=== PATIENT | female | born 1965 | race Caucasian/White ===

== ENCOUNTER 2022-01-12 19:20 | Emergency (ER) | payer OTHER, SELFPAY ==
--- NOTE | ~2022-01-12 | CT_ITS ---
EXAMINATION: CT head/brain wo con CLINICAL INFORMATION: Reason for Exam acute AMS etiology???r/o cva COMPARISON: CT head without contrast 04/12/2011 TECHNIQUE: Contiguous axial imaging was performed from the skull base to vertex without intravenous contrast. Sagittal and coronal reformatted images were obtained. This CT examination was performed using dose optimization techniques as appropriate, variously including the following: * Automated exposure control * Adjustment of mA and/or kV according to patient size (this includes techniques or standardized protocols for targeted exams where dose is matched to indication/reason for exam; i.e. extremities or head) Use of iterative reconstruction technique DLP: 702 mGy-cm FINDINGS: No acute osseous or soft tissue abnormality. Mastoid air cells are clear. Mild scattered paranasal sinus mucosal thickening There is no evidence of acute intracranial hemorrhage or territorial infarction. No abnormal mass effect or midline shift is seen. Loyd to white matter differentiation is well preserved. No extra-axial fluid collections are identified. No hydrocephalus. No significant volume loss. There is no abnormal attenuation within the brain parenchyma. CT/CT head/brain wo con IMPRESSION: No acute intracranial abnormality including hemorrhage, mass effect, hydrocephalus, or acute territorial edematous infarction.
--- NOTE | 2022-01-12 19:30 | ECG_ITS ---
Test Reason : ams Blood Pressure : / mmHG Vent. Rate : 112 BPM Atrial Rate : 112 BPM P-R Int : 146 ms QRS Dur : 088 ms QT Int : 370 ms P-R-T Axes : 046 -23 061 degrees QTc Int : 505 ms Sinus tachycardia Nonspecific ST abnormality Abnormal ECG No previous ECGs available Referred By: Prashant Levin Electronically Signed By:Eh Watts
--- NOTE | 2022-01-12 19:30 | ED.AMS ---
HPI - Altered Mental Status General Chief Complaint: Altered Mental Status Stated Complaint: altered mental Time Seen by Provider: 01/12/22 19:30 Source: EMS Mode of arrival: EMS History of Present Illness HPI narrative: Patient with psychiatric issues details not available brought by EMS for acute altered mental status. Apparently patient was fine earlier room at left and came back and noticed patient is acting vague not talking staring no seizure activity noticed no vomiting able to move all 4 extremities Related Data Allergies Allergy/AdvReac Type Severity Reaction Status Date / Time celecoxib [From CELEBREX] Allergy Unknown GASTRITIS Unverified 03/13/20 15:54 ibuprofen [IBUPROFEN] Allergy Unknown GASTRITIS Unverified 03/13/20 15:54 lactose [LACTOSE] Allergy Unknown STOMACH Unverified 03/13/20 15:54 UPSET latex [LATEX] Allergy Unknown RASH Unverified 03/13/20 15:54 metaxalone [From SKELAXIN] Allergy Unknown GASTRITIS Unverified 03/13/20 15:54 NSAIDS (Non-Steroidal Allergy Unknown GASTRITIS Unverified 03/13/20 15:54 Anti-Inflamma [NSAIDS] rofecoxib [From VIOXX] Allergy Unknown GASTRITIS Unverified 03/13/20 15:54 Latex Allergy Unknown Uncoded 07/17/19 00:00 Motrin Allergy Unknown Uncoded 07/17/19 00:00 Nsaids Allergy Unknown Uncoded 07/17/19 00:00 Review of Systems Review of Systems: Yes Unobtainable due to mental status PMFSH Social History Social History Alcohol intake: never Patient Tobacco Use Status: Former Tobacco user Smoked in Last 30 Days: No Use of substances other than those prescribed or required for medical reasons: Yes Substance Use Type: Marijuana Advance Directives: No Advance Directives Information Provided: No Physical Exam ED Vital Signs: Vital Signs - 24 hr 01/12/22 19:44 01/12/22 19:44 01/12/22 20:00 Temperature 97.5 F 97.5 F 97.4 F Pulse Rate 102 H 122 H 116 H Respiratory Rate 26 H 22 H 16 Blood Pressure 155/112 H 155/102 H 146/103 H Pulse Oximetry 96 98 97 Oxygen Delivery Method Room Air Room Air Room Air 01/12/22 21:55 01/12/22 23:04 Temperature 97.0 F Pulse Rate 113 H 124 H Respiratory Rate 16 16 Blood Pressure 176/95 H 175/113 H Pulse Oximetry 98 97 Oxygen Delivery Method Room Air Room Air BMI result Body Mass Index 25.0 Appearance: Alert. And awake staring No acute distress. Eyes: PERRLA, No Nystagmus ENT: Pharynx normal. Oral Mucosa moist Neck: Normal inspection. Neck supple. CVS: Normal heart rate and rhythm. Pulses normal. Respiratory: No respiratory distress. Equal air entry bilateral, no wheezing/rales/rhonchi Abdomen: Soft and nontender. Bowel sounds are present, no mass palpable, no CVA tenderness Skin: Skin warm and dry. Normal skin color. Normal skin turgor. Extremities: No lower extremity edema. No calf tenderness Neuro: Alert and awake not talking staring able to understand tried to make fist when I asked for, tremors in bilateral upper extremities + tone normal MDM - Altered Mental Status MDM Narrative Medical decision making narrative: Patient confused and very unkept condition details not available unable to contact the family patient seems to be very depressed her brother was recently diagnosed with terminal cancer and he refusing to take any treatment. CT scan of the head neg, labs stable Will consult care team Lab Data Attestation: I reviewed the patient's lab results. Result diagrams: 01/12/22 19:40 01/12/22 19:40 Labs: Lab Results 01/12/22 01/12/22 01/12/22 Range/Units 19:37 19:40 19:40 WBC 8.1 (4.8-10.8) X10*3/uL RBC 4.60 (4.20-5.50) X10*6/uL Hgb 13.4 (12.0-16.0) g/dl Hct 38.6 (37.0-47.0) % MCV 83.9 (80.0-98.0) fL MCH 29.1 (27.0-33.0) pg MCHC 34.7 (31.0-35.0) g/dl RDW 12.5 (11.0-16.0) % Plt Count 323 (160-400) X10*3/uL MPV 9.1 L (9.4-12.3) fL Immature Gran % (Auto) 0.4 (0.0-0.4) % Neut % (Auto) 75.0 H (45-73) % Lymph % (Auto) 17.6 L (20-40) % [place] % (Auto) 6.4 (2-11) % Eos % (Auto) 0.2 (0-4) % Baso % (Auto) 0.4 (0-2) % Lymph # (Auto) 1.4 (1.2-4.9) X10*3/uL [place] # (Auto) 0.5 (0.1-1.2) X10*3/uL Eos # (Auto) 0.0 (0.0-0.4) X10*3/uL Baso # (Auto) 0.0 (0.0-0.2) X10*3/uL Abs Immat Gran (auto) 0.03 (0.00-0.03) X10*3/uL Absolute Neuts (auto) 6.1 (2.0-8.3) x10*3/uL Absolute Nucleated RBC 0.000 (0.0-0.012) X10*3/uL Nucleated RBC % (auto) 0.0 (0.0-0.2) /100WBC PT 13.3 H (10.0-13.1) SEC INR 1.2 H (0.9-1.1) Sodium (135-145) mmol/L Potassium (3.3-5.1) mmol/L Chloride (96-108) mmol/L Carbon Dioxide (22-29) mmol/L Anion Gap (12-20) BUN (9-16) mg/dL Creatinine (0.5-1.4) mg/dL Estim Creat Clear Calc Estimated GFR Random Glucose (60-115) mg/dL Calcium (8.4-10.2) mg/dL Total Bilirubin (0.0-1.0) mg/dL AST (5-31) U/L ALT (0-31) U/L Alkaline Phosphatase (39-117) U/L Total Protein (6.5-8.0) g/dL Albumin (3.5-5.0) g/dL Urine Opiates Screen (Not Detect) Urine Fentanyl Screen (Not Detect) Ur Barbiturates Screen (Not Detect) Ur Phencyclidine Scrn (Not Detect) Ur Amphetamines Screen (Not Detect) U Benzodiazepines Scrn (Not Detect) Urine Cocaine Screen (Not Detect) U Marijuana (THC) Screen (Not Detect) COVID-19 (XAVIER) Negative (Negative) COVID-19 Clin Com See Note 01/12/22 01/12/22 Range/Units 19:40 21:57 WBC (4.8-10.8) X10*3/uL RBC (4.20-5.50) X10*6/uL Hgb (12.0-16.0) g/dl Hct (37.0-47.0) % MCV (80.0-98.0) fL MCH (27.0-33.0) pg MCHC (31.0-35.0) g/dl RDW (11.0-16.0) % Plt Count (160-400) X10*3/uL MPV (9.4-12.3) fL Immature Gran % (Auto) (0.0-0.4) % Neut % (Auto) (45-73) % Lymph % (Auto) (20-40) % [place] % (Auto) (2-11) % Eos % (Auto) (0-4) % Baso % (Auto) (0-2) % Lymph # (Auto) (1.2-4.9) X10*3/uL [place] # (Auto) (0.1-1.2) X10*3/uL Eos # (Auto) (0.0-0.4) X10*3/uL Baso # (Auto) (0.0-0.2) X10*3/uL Abs Immat Gran (auto) (0.00-0.03) X10*3/uL Absolute Neuts (auto) (2.0-8.3) x10*3/uL Absolute Nucleated RBC (0.0-0.012) X10*3/uL Nucleated RBC % (auto) (0.0-0.2) /100WBC PT (10.0-13.1) SEC INR (0.9-1.1) Sodium 138 (135-145) mmol/L Potassium 3.2 L (3.3-5.1) mmol/L Chloride 105 (96-108) mmol/L Carbon Dioxide 25 (22-29) mmol/L Anion Gap 11 L (12-20) BUN 18 H (9-16) mg/dL Creatinine 0.81 (0.5-1.4) mg/dL Estim Creat Clear Calc 68.1 Estimated GFR > 60 Random Glucose 123 H (60-115) mg/dL Calcium 8.9 (8.4-10.2) mg/dL Total Bilirubin 0.6 (0.0-1.0) mg/dL AST 15 (5-31) U/L ALT 13 (0-31) U/L Alkaline Phosphatase 61 (39-117) U/L Total Protein 6.8 (6.5-8.0) g/dL Albumin 4.3 (3.5-5.0) g/dL Urine Opiates Screen Not Detected (Not Detect) Urine Fentanyl Screen Not Detected (Not Detect) Ur Barbiturates Screen Not Detected (Not Detect) Ur Phencyclidine Scrn Not Detected (Not Detect) Ur Amphetamines Screen Not Detected (Not Detect) U Benzodiazepines Scrn Not Detected (Not Detect) Urine Cocaine Screen Not Detected (Not Detect) U Marijuana (THC) Screen POSITIVE H (Not Detect) COVID-19 (XAVIER) (Negative) COVID-19 Clin Com Discharge Plan Discharge Clinical Impression: Altered mental status, Depression Patient Disposition: Still a Patient
[2022-01-12 19:44] VITALS: BP 155/102; BP 155/112; BP 162/108; PULSE 102; PULSE 122; PULSE 130; RESP 22; RESP 26; TEMP 36.4; O2SAT 96; O2SAT 98; BMI 25.0
[2022-01-12 19:46] LABS: MANUAL DIFF FLAG NO
[2022-01-12 19:50] LABS: Basophils Percent Auto 0.4 % (0-2); Eosinophils Percent Auto 0.2 % (0-4); Hematocrit 38.6 % (37.0-47.0); Hemoglobin 13.4 g/dl (12.0-16.0); Imm Gran Abs Auto 0.03 X10*3/uL (0.00-0.03); Imm Gran Pct Auto 0.4 % (0.0-0.4); Lymphocytes Absolute Auto 1.4 X10*3/uL (1.2-4.9); Lymphocytes Percent Auto 17.6 % (20-40); Mean Corpuscular HGB Conc 34.7 g/dl (31.0-35.0); Mean Corpuscular Hemoglobin 29.1 pg (27.0-33.0); Mean Corpuscular Volume 83.9 fL (80.0-98.0); Mean Platelet Volume 9.1 fL (9.4-12.3); Monocytes Absolute Auto 0.5 X10*3/uL (0.1-1.2); Monocytes Percent Auto 6.4 % (2-11); Neutrophils Absolute Auto 6.1 x10*3/uL (2.0-8.3); Platelet Count 323 X10*3/uL (160-400); Red Cell Distribution Width 12.5 % (11.0-16.0); White Blood Count 8.1 X10*3/uL (4.8-10.8)
--- NOTE | 2022-01-12 19:51 | PC.NURSE ---
ED triage completed with EMS, IV access inserted, labs drawn and COVID swab sent. Pt. at CT scan at this time
[2022-01-12 19:53] LABS: INTERNATIONAL NORM RATIO 1.2 (0.9-1.1); Prothrombin Time 13.3 SEC (10.0-13.1)
[2022-01-12 20:00] VITALS: BP 146/103; PULSE 116; RESP 16; TEMP 36.3; O2SAT 97
[2022-01-12 20:02] LABS: COVID-19 Test Negative (Negative); IDNOW Serial# 16C4AD1C
[2022-01-12 20:03] LABS: Alanine Aminotransferase 13 U/L (0-31); Albumin Level 4.3 g/dL (3.5-5.0); Alkaline Phosphatase 61 U/L (39-117); Anion Gap 11 (12-20); Aspartate Amino Transferase 15 U/L (5-31); Bilirubin Total 0.6 mg/dL (0.0-1.0); Blood Urea Nitrogen 18 mg/dL (9-16); Calcium 8.9 mg/dL (8.4-10.2); Carbon Dioxide 25 mmol/L (22-29); Chloride 105 mmol/L (96-108); Creatinine Clr Calc Pharmacy 68.1; Estimated Glomerular Filt Rate > 60; Glucose Random 123 mg/dL (60-115); Potassium 3.2 mmol/L (3.3-5.1); Sodium 138 mmol/L (135-145); Total Protein 6.8 g/dL (6.5-8.0)
--- NOTE | 2022-01-12 20:18 | PC.NURSE ---
PATIENT GOT CHANGE INTO HOSPITAL ATTIRE BY THIS PCT .
[2022-01-12 21:55] VITALS: BP 176/95; PULSE 113; RESP 16; TEMP 36.1; O2SAT 98
[2022-01-12 22:17] LABS: Amphetamine Screen Urine Not Detected (Not Detect); Barbiturates, Urine Not Detected (Not Detect); Benzodiazepines Screen Urine Not Detected (Not Detect); Cannabinoid Screen Urine POSITIVE (Not Detect); Cocaine Screen Urine Not Detected (Not Detect); Fentanyl, urine Not Detected (Not Detect); Opiate Screen Urine Not Detected (Not Detect); Phencyclidine Screen Urine Not Detected (Not Detect)
[2022-01-12 23:04] VITALS: BP 175/113; PULSE 124; RESP 16; O2SAT 97
[2022-01-12] MEDS: Metoprolol Tartrate 5 MG/5 ML VIAL IVPUSH (23:14)
[2022-01-12] MEDS: 0.9 % Sodium Chloride 1,000 ML 999 ML IV (23:14)
--- NOTE | 2022-01-12 23:20 | PC.NURSE ---
pt placed on bed kelly multiple times. unable to void. Heart rate in the 130s-140s, metoprolol given IV push per Dr. Rivera's orders. pt able to respond to verbal commands at this time.
[2022-01-13] VITALS (8 sets, daily range): BP systolic 119–175; BP diastolic 75–117; PULSE 74–100; RESP 12–20; TEMP 36.3–36.7; O2SAT 97–98
--- NOTE | 2022-01-13 00:30 | PC.NURSE ---
pt ambulated to bathroom with 1-2 assist. upon getting back into bed pt stated she needed to void again. Unsteady gait. Disheveled and unkept appearance. A&O x1.
--- NOTE | 2022-01-13 01:01 | PC.NURSE ---
Called Marco Mcleod (fiance) [phone] left message at 0100am. per patient it's her fiance. Patient disheveled and smells like sweat. Will continue with plan of care.
[2022-01-13] MEDS: Losartan Potassium 50 MG TABLET PO (03:36)
[2022-01-13] MEDS: Labetalol HCL 100 MG TABLET PO (05:13)
--- NOTE | 2022-01-13 05:24 | PC.NURSE ---
pt is alert to person and time. Was confused to regarding location, thought was in [facility]. Elevated blood pressure medicated per Mar. Pt reports she does take medications and there no records of medicates listed.
--- NOTE | 2022-01-13 05:48 | PC.NURSE ---
Harsha her partner [phone]
--- NOTE | 2022-01-13 07:11 | PC.NURSE ---
Patient reports feeling somewhat improved. Patient is alert and oriented to person/place but is not oriented to year. Reports some discomfort after urinating and reports frequently feeling the urge to urinate. UA order placed. Awaiting fresh specimen. Patient denies pain, respirations regular and even. Skin PWD. Hypertensive, made aware. Diet order placed and awaiting breakfast tray. Will continue to monitor.
[2022-01-13 07:52] LABS: Appearance Urine CLEAR; Color Urine STRAW; Glucose Urine UA NEG (NEG); Leukocyte Esterase Urine NEG (NEG); Nitrite Urine NEG (NEG); UACC Culture Trigger NO; Urine Blood 2+ (NEG); Urine Ketones 5 MG/DL (NEG); Urine Protein NEG (NEG-TRACE)
[2022-01-13 08:04] LABS: Squamous Epithelial Cell Urine TRACE /LPF
[2022-01-13 08:05] LABS: WBC Urine 0 /HPF (0-4)
--- NOTE | 2022-01-13 08:32 | PC.NURSE ---
Patient up to the commode numerous times. Unsteady on feet and needs assistance to stand and pivot. Fiance at bedside now visiting. Patient alert and can report year at this time. Respirations remain regular and even. Skin PWD. No signs of distress. Will continue to monitor.
--- NOTE | 2022-01-13 09:10 | PHA.MEDREC ---
Pharmacy Consult ? Medication Reconciliation Pharmacy has completed the medication reconciliation.
[2022-01-13 09:20] LABS: Anion Gap 14 (12-20); Blood Urea Nitrogen 12 mg/dL (9-16); Calcium 9.6 mg/dL (8.4-10.2); Carbon Dioxide 25 mmol/L (22-29); Chloride 103 mmol/L (96-108); Estimated Glomerular Filt Rate > 60; Glucose Random 92 mg/dL (60-115); Potassium 3.4 mmol/L (3.3-5.1); Sodium 139 mmol/L (135-145)
--- NOTE | 2022-01-13 09:29 | MHC.CM.ED ---
Case management consult received overnight. Patient is waiting to be seen by Care Team. CM will eval if necessary. Continue to monitor for d/c needs.
--- NOTE | 2022-01-13 10:03 | PC.NURSE ---
Patient remains comfortable resting on stretcher. Respirations regular and even. Skin PWD. Remains unstable to ambulate without assistance to commode, 1 assist. Awaiting careteam consult. Will continue to monitor.
--- NOTE | 2022-01-13 13:32 | PC.NURSE ---
Patient reports she continues to improve. A+O x 4 at this time. Respirations remain regular and even. Skin PWD. Denies pain. Will continue to monitor.
--- NOTE | 2022-01-13 16:50 | MHC.CM.ED ---
CARE team is recommending RVC or partial hospitalization program for patient. Pt lives in efficiency apartment with her disabled daughter, who requires 24/7 care and is wheelchair bound. Daughter has a progressive disease per pt. Cannot tell CM much, except that daughter has spots on her white matter that result in paraplegia. Daughter is now at [facility] and pt states she cannot take her home and wants her daughter to be placed. CM explained that [facility] will be contacting her regarding her daughter. Pt has some help from boyfriend, Harsha ([phone]), who states he can help patient at home over next several days. Pt wants to go home. Has had help to ambulate to BR documented in NN. Spoke to nurse about patients ability to ambulate and needing assessment prior to d/c. CM spoke with Yadira EDMONDS, who assessed patient and had her ambulate. Pt was very unsteady on her feet, leaning towards the left as she ambulated. COLLAR WORKER and CM spoke with patient. D/C cancelled. Pt will have CT of head and PT consult for possible STR. Pt is very unkempt, with a nest of matted hair. Pt admits to having difficulty caring for herself, as she has been caring for her daughter. Pt has [facility] insurance and states she has no services/DME. Pt states she does not have a provider. CM explained that she should have a care administrative tech at [facility] who can help her. CM will need to call [facility] in the morning, as they are closed now. CM will follow for d/c needs.
--- NOTE | 2022-01-13 17:00 | MHC.CARE ---
Pt is a 56 y/o, , Niuean speaking, female who is previously unknown to the CARE Team.? Yesterday, pt arrived via EMS after an unintentional overdose on Benadryl.? Pt?s Boyfriend reported that he brought dinner to pt and her daughter and normally hears from her after dinner.? Yesterday he did not.? Thinking that to be odd, he called, and later drove to her home when he did not hear from her.? He found her unresponsive and called EMS.? Pt has been medically cleared and is being seen by the CARE Team on a consult request.? 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 She does not know the name of the disease, claiming that the disease has no name.? She does state that the condition is caused by ?White spots on the brain or spots on the white brain matter.? She reports that caring for her daughter is an around the clock job.? She reports that for the past month she has only gotten 2-4 hours of sleep a night and is ?Exhausted but cannot sleep.?? She stated that prior to this past month, she was using ZQUil to sleep but that soon became ineffective.? She stated that in an effort to sleep, she took ?A lot? of Benadryl.? She could not give an exact amount but it was not a whole bottle.? She did call the amount ?A handful?. She is alert and oriented x4 and is assessed for risk in her room in the main ED.? She is disheveled and appears older than her stated age.? Physically, she appears frail though she reports that she has been eating well.? She is engaged and help seeking but cannot articulate what help she does need.? She reports her mood as depressed and anxious, she demonstrates congruent affect.? Her speech and eye contact are unremarkable.? She denies AVH, SI, HI, and .? She stated that she has a remote hx of SI.? In 2008 her had a stroke and was left nonverbal and is now in a half-way.? During and after that event, pt experienced increasing depression, anxiety, and suicidal ideation.? She reports no attempts or intent.? Pt was homeless with her daughter approximately 7 years ago and her boyfriend assisted them in securing an apartment.? She is presently living in an efficiency apartment with her daughter.? Pt does not have any services in place presently.? She does not appear to be at risk and does not meet criteria for inpatient level of care. CARE Team will refer pt to [facility] for a therapist with a note that she will also require a prescriber as pt has been off her psychiatric medications for approximately 2 years.? A [place] [facility] [place] CASE Management will speak with pt regarding resources that may be available to her daughter and how to begin the process of researching them. This has been discussed with and agreed upon by Care Device Repair Technician Marty RICHARDS and ED provider Parvez Nicholas
--- NOTE | 2022-01-13 18:00 | PC.NURSE ---
patient a&ox2, no c/o pain/discomfort, per case mgmt pt will continue to stay for pt eval, call kaye within reach, will continue to monitor.
--- NOTE | 2022-01-13 21:00 | PC.NURSE ---
pt sleeping, wakes to verbal stimulus, a&ox2, no c/o pain or discomfort, call kaye within reach, will continue to monitor
[2022-01-14] MEDS: Acetaminophen 325 MG TABLET 650 MG PO (01:08)
[2022-01-14 01:33] VITALS: BP 156/94; PULSE 71; RESP 16; TEMP 37.2; O2SAT 97
[2022-01-14 06:33] VITALS: BP 128/82; PULSE 77; RESP 14; TEMP 36.8; O2SAT 97
[2022-01-14 07:01] VITALS: BP 140/91; PULSE 72; RESP 16; TEMP 36.8; O2SAT 98
[2022-01-14 07:27] VITALS: BP 140/91; PULSE 72; O2SAT 98
[2022-01-14] MEDS: Multivitamin TABLET 1 TAB PO (09:15)
--- NOTE | 2022-01-14 09:16 | PC.NURSE ---
pt alert and oriented, skin pwd, respirations even and unlabored. pt ate her breakfast and provided with a tea instead of her coffee. pt denies pain. pt states that physical therapy already saw her this morning and was told she passed with physical therapy. pt lives alone in [place].
--- NOTE | 2022-01-14 11:17 | MHC.CM.ED ---
Addendum entered by Kate Burns 01/14/22 13:04: [facility] is able to accept patient. Carmencita from [facility] aware. Original Note: Patient remains in ER. Physical therapy eval completed. Home therapy is recommended. Met with patient in regards to discharge planning. Patient feels she can safely go home with services. Sig other will be here at noon to transport patient home. Patient, Cami BURNHAM and Yadira EDMONDS aware. Continue to monitor for d/c needs.
[2022-01-14 11:32] VITALS: BP 139/85; PULSE 80; RESP 12; O2SAT 97
--- NOTE | 2022-01-16 15:46 | MHC.CARE ---
CARE team called for a second time to check in with Pt and provided phone support, message left on voice mail.
== END 2022-01-14 12:26 | disposition home or self-care (01) ==
PROVIDERS: Emergency Medicine; Physician Assistant Medical; Emergency Provider Internal Medicine; PCP Internal Medicine
DX: R41.82 Altered mental status, unspecified (principal); F32.A Depression, unspecified; R26.81 Unsteadiness on feet; I10 Essential (primary) hypertension; F12.90 Cannabis use, unspecified, uncomplicated; Z20.822 Contact with and (suspected) exposure to COVID-19; Z72.89 Other problems related to lifestyle; Z63.79 Other stressful life events affecting family and household; Z87.891 Personal history of nicotine dependence
CPT/HCPCS: 36415; 70450; 80048; 80053; 80307; 81001; 85025; 85610; 87635; 93005; 96361; 96374; 97161; 99285

== ENCOUNTER 2022-03-17 09:23 | Outpatient (REF) | payer OTHER, SELFPAY ==
[2022-03-17 11:21] LABS: Appearance Urine Clear; Color Urine Yellow; Glucose Urine UA Negative (Negative); Leukocyte Esterase Urine Moderate (2+) (Negative); Nitrite Urine Negative (Negative); PH 5.5 (5.0-9.0); Specific Gravity - Urine 1.015 (1.005-1.025); UMIC TRIGGER UA YES; Urine Blood Negative (Negative); Urine Ketones Negative (Negative); Urine Protein Negative (Neg-Trace)
[2022-03-17 11:25] LABS: Hematocrit 41.6 % (37.0-47.0); Hemoglobin 13.6 g/dl (12.0-16.0); Mean Corpuscular HGB Conc 32.7 g/dl (31.0-35.0); Mean Corpuscular Hemoglobin 28.5 pg (27.0-33.0); Mean Corpuscular Volume 87.2 fL (80.0-98.0); Mean Platelet Volume 9.7 fL (9.4-12.3); Platelet Count 337 X10*3/uL (160-400); Red Blood Count 4.77 X10*6/uL (4.20-5.50); Red Cell Distribution Width 13.2 % (11.0-16.0); White Blood Count 6.6 X10*3/uL (4.8-10.8)
[2022-03-17 11:45] LABS: Bacteria Urine None Seen (None Seen); Hyaline Casts Urine 0-2 /LPF (0-2); RBC Urine 0-2 /HPF (0-2)
[2022-03-17 12:05] LABS: Alanine Aminotransferase 28 U/L (0-31); Albumin Level 4.5 g/dL (3.5-5.0); Alkaline Phosphatase 65 U/L (39-117); Anion Gap 16 (12-20); Aspartate Amino Transferase 23 U/L (5-31); Bilirubin Total 0.6 mg/dL (0.0-1.0); Blood Urea Nitrogen 17 mg/dL (9-16); Calcium 9.7 mg/dL (8.4-10.2); Carbon Dioxide 26 mmol/L (22-29); Chloride 102 mmol/L (96-108); Cholesterol 305 mg/dL; Estimated Glomerular Filt Rate > 60; Glucose Fasting 94 mg/dL (60-99); HDL Cholesterol 50 mg/dL; LDL Cholesterol Calculated 225 mg/dl; Potassium 3.7 mmol/L (3.3-5.1); Sodium 140 mmol/L (135-145); Triglycerides 153 mg/dL
[2022-03-17 12:06] LABS: TSH reflex Free T4 2.31 uIU/mL (0.32-4.0)
== END 2022-03-17 09:24 | disposition home or self-care (01) ==
LOC: HO.HMGCLDS 09:23
PROVIDERS: PCP Hospitalist; Visit Provider Hospitalist
DX: Z00.00 Encounter for general adult medical examination without abnormal findings (principal)
CPT/HCPCS: 36415; 80053; 80061; 81001; 84443; 85027

== ENCOUNTER 2022-04-21 16:09 | Outpatient (REF) | payer OTHER, SELFPAY | END 2022-04-21 16:10 | disposition home or self-care (01) | LOC: HO.LAB 16:09 | PROVIDERS: Visit Provider Hospitalist | DX: N39.0 Urinary tract infection, site not specified (principal) | CPT/HCPCS: 87086 ==

== ENCOUNTER 2022-11-03 11:57 | Day surgery (SDC) | payer OTHER, SELFPAY ==
[2022-11-01 14:22] VITALS: BMI 24.2
--- NOTE | 2022-11-02 12:08 | HO.ANESPROP2 ---
Documented by User: Nabila Bauer NP 11/02/22 12:09 HPI - Anesthesia Eval Consult details Narrative: 57yo F for Colonoscopy PMFSH Active Problems Active Problems: All Active Problems (Updated 09/08/22 @ 14:57 by Di Marie NP) Anxiety and depression (Acute) Skin lesion of back (Acute) Sleep-wake 24 hour cycle disruption (Acute) Mid back pain, chronic (Acute) UTI (urinary tract infection) (Acute) Dysuria (Acute) Encounter for screening mammogram for malignant neoplasm of breast (Acute) Hypertension goal BP (blood pressure) < 130/80 (Acute) Insomnia (Acute) Due for screening (Acute) Mammogram not needed (Acute) Elevated BP without diagnosis of hypertension (Acute) Migraine (Acute) Cervical disc disease (Acute) Depression (Acute) Anxiety (Acute) Normal physical exam (Acute) Past Medical History Medical History Anxiety Cervical disc disease Depression Fibromyalgia Insomnia Migraine Sciatica Surgical History Surgical History No pertinent past surgical history Social History Social History Housing: Apartment Alcohol intake: never Patient Tobacco Use Status: Former Tobacco user e-Cigarette/Vaping Use: Never Used Use of substances other than those prescribed or required for medical reasons: No Substance Use Type: Marijuana Are you DNR?: No Advance Directives: No Advance Directives Information Provided: Yes Current occupational status: disabled Meds Allergies Allergy/AdvReac Type Severity Reaction Status Date / Time celecoxib [From CELEBREX] Allergy Unknown GASTRITIS Verified 09/08/22 14:44 ibuprofen [IBUPROFEN] Allergy Unknown GASTRITIS Verified 09/08/22 14:44 lactose [LACTOSE] Allergy Unknown STOMACH Verified 09/08/22 14:44 UPSET latex [LATEX] Allergy Unknown RASH Verified 09/08/22 14:44 metaxalone [From SKELAXIN] Allergy Unknown GASTRITIS Verified 09/08/22 14:44 NSAIDS (Non-Steroidal Allergy Unknown GASTRITIS Verified 09/08/22 14:44 Anti-Inflamma [NSAIDS] rofecoxib [From VIOXX] Allergy Unknown GASTRITIS Verified 09/08/22 14:44 Exam Exam Date and Time: November 02, 2022 1208 Height,Weight and Vital Signs: Height 5 ft Weight 56.245 kg Pertinent Lab Results Pertinent Lab Results: Laboratory Tests 03/17/22 03/17/22 09:29 09:29 WBC 6.6 Hgb 13.6 Hct 41.6 Plt Count 337 Sodium 140 Potassium 3.7 Chloride 102 Carbon Dioxide 26 BUN 17 H Creatinine 0.86 Assessment and Plan Assessment Anesthesia Assessment: Chart Reviewed Documented by User: Shellie Myers MD 11/03/22 13:52 [facility] Past Medical History Medical History Anxiety Cervical disc disease Depression Fibromyalgia Insomnia Migraine Sciatica Family History Family history of problems with anesthesia: No Surgical History Surgical History No pertinent past surgical history History of Problems with Anesthesia: No Social History Social History Housing: Apartment Alcohol intake: never Patient Tobacco Use Status: Former Tobacco user e-Cigarette/Vaping Use: Never Used Use of substances other than those prescribed or required for medical reasons: No Substance Use Type: Marijuana Are you DNR?: No Advance Directives: No Advance Directives Information Provided: Yes Current occupational status: disabled Meds Allergies Allergy/AdvReac Type Severity Reaction Status Date / Time celecoxib [From CELEBREX] Allergy Unknown GASTRITIS Verified 09/08/22 14:44 ibuprofen [IBUPROFEN] Allergy Unknown GASTRITIS Verified 09/08/22 14:44 lactose [LACTOSE] Allergy Unknown STOMACH Verified 09/08/22 14:44 UPSET latex [LATEX] Allergy Unknown RASH Verified 09/08/22 14:44 metaxalone [From SKELAXIN] Allergy Unknown GASTRITIS Verified 09/08/22 14:44 NSAIDS (Non-Steroidal Allergy Unknown GASTRITIS Verified 09/08/22 14:44 Anti-Inflamma [NSAIDS] rofecoxib [From VIOXX] Allergy Unknown GASTRITIS Verified 09/08/22 14:44 Exam Airway Mallampati Class: II TM Dist: >3cm Neck ROM: Full Heart: rrr Lungs: cta Assessment and Plan Assessment Anesthesia Assessment: Anesthesia Plan Discussed Final Anesthetic Review Family History of Problems with Anesthesia: No History of Problems with Anesthesia: No NPO: Yes ASA Class: II Final Preanesthetic Review: No Changes in Pt Med Stat, Meds/Allgs Chart Reviewed and Consent Obtained/Reviewed Patient Risk: Intermediate Procedure Risk: Intermediate Anesthetic Plan Anesthetic Plan: MAC: Disposition: Standard PACU
[2022-11-03 12:47] VITALS: BMI 24.0
[2022-11-03 12:51] VITALS: BP 119/79; PULSE 93; RESP 18; TEMP 37.3; O2SAT 97
[2022-11-03 13:06] VITALS: BP 119/75; PULSE 82; RESP 18; TEMP 36.7; O2SAT 97
[2022-11-03] MEDS: Lactated Ringers 1,000 ML 100 ML IVCONT (13:07)
--- NOTE | 2022-11-03 13:45 | P.HPSUR_ITS ---
Pre-Procedural Eval Section A Date of Service: 11/03/22 Section B Chief Complaint: Encounter for screening for malignant neoplasm Relevant Family History (Specify if Yes): No Relevant Social History: None Present Medications: see Short Stay Collaborative assessment Medical History: Significant History (Anxiety Cervical disc disease Depression Fibromyalgia Insomnia Migraine Sciatica) History of Previous Operations: No relevant previous surgery Allergies: Allergies Allergy/AdvReac Type Severity Reaction Status Date / Time celecoxib [From CELEBREX] Allergy Unknown GASTRITIS Verified 09/08/22 14:44 ibuprofen [IBUPROFEN] Allergy Unknown GASTRITIS Verified 09/08/22 14:44 lactose [LACTOSE] Allergy Unknown STOMACH Verified 09/08/22 14:44 UPSET latex [LATEX] Allergy Unknown RASH Verified 09/08/22 14:44 metaxalone [From SKELAXIN] Allergy Unknown GASTRITIS Verified 09/08/22 14:44 NSAIDS (Non-Steroidal Allergy Unknown GASTRITIS Verified 09/08/22 14:44 Anti-Inflamma [NSAIDS] rofecoxib [From VIOXX] Allergy Unknown GASTRITIS Verified 09/08/22 14:44 Review of Systems Sugical H&P ROS: Negative: Constitution, Cardiovascular, Respiratory, Neurological, Psychiatric, Hem-Onc, Allergic/Immunologic, Gastrointestinal, Genitourinary, Musculoskeletal, Integumentary, Endocrine and Eyes/Ears/Nose/Throat Exam Surgical H&P Exam: Normal: HEENT, Normal: Heart, Normal: Lungs, Normal: Extremit ies, Normal: Abdomen, Normal: Skin and Normal: Neurological Plan Diagnosis/Plan: Unchanged I have reviewed the history and physical and performed a pertinent physical examination on my patient. No changes have occurred unless specified. Time Spent With Patient Time: Total time managing care of this patient today ____ minutes.
--- NOTE | 2022-11-03 13:46 | W.PM.OPN ---
Operative Note Operative Note Date of Service: 11/03/22 Narrative: Operative Information Procedure Description: Colonoscopy Indication: screening Anesthesia: MAC COLONOSCOPY Instrument: Olympus variable stiffness pediatric scope 190L Colonoscopy Monitoring: Vital signs and clinical assessment, continuous EKG monitoring, Pulse oximetry, Carbon Dioxide monitoring and blood pressure monitoring were done throughout the procedure. Colon withdrawal time was 16 minutes. Procedure: The patient was placed in the left lateral decubitis position and pre-procedure medications were administered. After a digital rectal examination of the ano-rectum, the video colonoscope was inserted into the rectum and advanced through the colon to the cecum/TI. The colonoscope was slowly withdrawn in a retrograde panoramic fashion and the colon mucosa was carefully examined including a retroflexed view of the rectum. Findings and interventions are described below. Procedure Difficulty: difficult, tortuous colon Findings: Terminal Ileum-not intubated Cecum:normal Ascending Colon: x 2 sessile polyps note,d one was 12 mm and removed with cold snare, with one clip applied for hemostasis, the other was 8 mm and removed with cold forceps Transverse Colon - 7-8 mm sessile polyp removed with cold forceps Descending Colon:normal Sigmoid Colon: normal Rectum: Retroflexion with small internal hemorrhoids, grade I, few small polyps 5-7 mm noted and removed with cold forceps, seemed hyperplastic Anorectum - normal Colon preparation: [place] Bowel Preparation Scale Right colon; 1-2 Transverse colon: 2 Left colon; 1 (0 = Unprepared colon segment with mucosa not seen due to solid stool that cannot be cleared. 1 = Portion of mucosa of the colon segment seen, but other areas of the colon segment not well seen due to staining, residual stool and/or opaque liquid. 2 = Minor amount of residual staining, small fragments of stool and/or opaque liquid, but mucosa of colon segment seen well. 3 = Entire mucosa of colon segment seen well with no residual staining, small fragments of stool or opaque liquid) Impression and Post Procedure Diagnosis: polyps internal hemorrhoids tortuous colon Plan: High fiber diet leaflet Avoid straining at stool, epsom salts and sitz bath, anusol supps or cream Repeat Colonoscopy in 8-12 months or earlier if clinically indicated Above findings were reviewed with the patient and relevant handouts were provided if indicated.
[2022-11-03 14:41] VITALS: BP 128/69; PULSE 77; RESP 16; TEMP 37.3; O2SAT 97
[2022-11-03 14:56] VITALS: BP 140/99; PULSE 79; RESP 18; TEMP 36.2; O2SAT 96
== END 2022-11-03 15:28 | disposition home or self-care (01) ==
PROVIDERS: PCP Hospitalist; Visit Provider Internal Medicine Gastroenterology
PROC: 0DJD8ZZ Inspection of Lower Intestinal Tract, Via Natural or Artificial Opening Endoscopic (ICD-10-PCS; CPT 45378; principal; 2022-11-03 13:50)
DX: Z12.11 Encounter for screening for malignant neoplasm of colon (principal); D12.2 Benign neoplasm of ascending colon; D12.3 Benign neoplasm of transverse colon; K62.1 Rectal polyp; K64.0 First degree hemorrhoids; K56.2 Volvulus; M79.7 Fibromyalgia; F32.A Depression, unspecified; G43.909 Migraine, unspecified, not intractable, without status migrainosus; M54.30 Sciatica, unspecified side; Z79.899 Other long term (current) drug therapy; Z88.8 Allergy status to other drugs, medicaments and biological substances; Z91.040 Latex allergy status
CPT/HCPCS: 45385; 45380; 88305

== ENCOUNTER 2023-06-30 12:10 | Outpatient (AMB) | payer OTHER, SELFPAY ==
[2023-06-30 12:41] VITALS: BP 126/78; PULSE 87; RESP 13; TEMP 36.6; O2SAT 98; BMI 25.4
--- NOTE | 2023-06-30 12:41 | MHC.PC.OV ---
Vital Signs 06/30/23 12:41 Height 5 ft Weight 130 lb BMI 25.4 BP 126/78 Blood Pressure Location Rt brachial Position Sitting Respiration 13 Pulse 87 Pulse Source Pulse Oximeter Temp 97.8 F Temp Source Temporal Artery Scan Pulse Oximetry (%) 98 Oxygen Delivery Method Room Air Intake Visit Reasons: Transfer of care, HTN Allergies celecoxib [From CELEBREX] Allergy (Unknown, Verified 06/30/23 12:46) GASTRITIS ibuprofen [IBUPROFEN] Allergy (Unknown, Verified 06/30/23 12:46) GASTRITIS lactose [LACTOSE] Allergy (Unknown, Verified 06/30/23 12:46) STOMACH UPSET latex [LATEX] Allergy (Unknown, Verified 06/30/23 12:46) RASH metaxalone [From SKELAXIN] Allergy (Unknown, Verified 06/30/23 12:46) GASTRITIS NSAIDS (Non-Steroidal Anti-Inflamma [NSAIDS] Allergy (Unknown, Verified 06/30/23 12:46) GASTRITIS rofecoxib [From VIOXX] Allergy (Unknown, Verified 06/30/23 12:46) GASTRITIS Medication List - Last Reconciled 06/30/23 by Kian Schultz MD blood pressure monitor As directed cyclobenzaprine 5 mg PO BID duloxetine (Cymbalta) 60 mg PO DAILY hydroxyzine HCl 50 mg PO BEDTIME lisinopril 10 mg PO DAILY miscellaneous medical supply (Blood Pressure Cuff) As directed multivitamin with folic acid 400 mcg (Daily-[place] (with folic acid)) 1 tab PO DAILY trazodone 50 mg PO TID 1 month Tobacco use date assessed: 06/30/23 Dental Screening Dental Screen Date: 06/30/23 Did you have a dental visit in the last 12 months?: No Did you have a dental problem in the last 6 months where you did not have access to dental care?: No Was dental information given to patient?: Yes HPI Transfer of care, HTN HPI Details Transfer of Care Prior PCP:?SV Last office visit/CPE: Acute issue(s): R Hip pain, fell March. Hand pain PMHx: HTN, Back pain, L shoulder pain, Hand pain, Rectocele, Fibromyalgia. SurgHx: C5-C6 Discectomy & Fusion Dr. Hidalgo. FHx: SocHx: Quit 4 years ago. No EtOH or drugs. [facility] Medical History Cervical disc disease Sciatica Migraine Fibromyalgia Insomnia Anxiety Depression Surgical History History of colonoscopy Family History Other Mental health disorder Social History Housing: Apartment Alcohol intake: never Patient Tobacco Use Status: Former Tobacco user Tobacco use type: Cigarette e-Cigarette/Vaping Use: Never Used Substance Use Type: Marijuana service: No Current occupational status: disabled Cognitive needs: No Hearing needs: No Vision needs: No Questionnaire PHQ-9 Over the last 2 weeks, how often have you been bothered by any of the following problems? 1. Little interest or pleasure in doing things: not at all 2. Feeling down, depressed, or hopeless: not at all 3. Trouble falling or staying asleep, or sleeping too much: several days 4. Feeling tired or having little energy: several days 5. Poor appetite or overeating: not at all 6. Feeling bad about yourself - or that you are a failure or have let yourself or your family down: not at all 7. Trouble concentrating on things, such as reading the newspaper or watching television: several days 8. Moving or speaking so slowly that other people could have noticed. Or the opposite - being so fidgety or restless that you have been moving around a lot more than usual: not at all 9. Thoughts that you would be better off or of hurting yourself in some way: not at all Total score: 3 Depression Screening Interpretation: Negative Depression Screening Done: Yes 78272 - PHQ-9 Billing: Yes Source: Developed by Drs. Wilfredo Yeung, Mallory Cornelius, Markos Calderon and colleagues, with an educational wolf from [employer]. Thrive Questionnaire Date Thrive assessed: 06/30/23 I am a: Patient What is your living situation today?: I have a steady place to live Within the past 12 months, did the food you bought not last and you didn't have the money to get more?: Never true Within the past 12 months, did you worry whether your food would run out before you got money to buy more?: Never true Do you have trouble paying for medicines?: No Do you have trouble getting transportation to medical appointments?: No Do you have trouble paying your heating and electricity bill?: No Do you have trouble taking care of your child, family member or friend?: No Do you have trouble with day-to-day activities such as bathing, preparing meals, shopping, managing finances, etc.?: Yes Are you currently unemployed and looking for a job?: No Are you interested in more education?: No Please select the resources that you would like help with: None Currently or been in a relationship where the following occur: no concerns reported AUDIT C Alcohol Use Questionnaire (AUDIT-C) 1. How often do you have a drink containing alcohol?: Never 3. How often do you have six or more drinks on one occasion?: Never Total Score: 0 WILBER-7 AMB Questionnaire WILBER-7 Date WILBER - 7 assessed: 06/30/23 Feeling nervous, anxious, or on edge: 1 = Several days Not being able to stop or control worryin = Not at all Worrying too much about different things: 0 = Not at all Trouble relaxin = Several days Being so restless that it is hard to sit still: 0 = Not at all Becoming easily annoyed or irritable: 0 = Not at all Feeling afraid as if something awful might happen: 0 = Not at all Total WILBER-7 score (0-4 normal; 5-9 mild; 10-14 moderate; 15-21 severe): 2 Source: Developed by Drs. Wilfredo Yeung, Mallory Cornelius, Markos Calderon and colleagues, with an educational wolf from [employer]. WILBER-7 Assessment Billing WILBER-7 Assessment Tool: WILBER-7 Assessment [id number] Review of Systems Const Denies chills, Denies fatigue, Denies fever(s), Denies headache(s) and Denies weakness ENT Denies dizziness and Denies headache(s) Card Denies chest pain, Denies lightheadedness, Denies dyspnea and Denies other (Palpitations) Resp Denies cough, Denies dyspnea, Denies wheezing and Denies other ( shortness of breath) Musc Details: Hip pain Reports back pain, Denies numbness and Denies tingling Neuro Denies dizziness, Denies headache(s), Denies numbness, Denies tingling, Denies paresthesias and Denies weakness Psych Denies anxiety and Denies depression Endo Denies fatigue Aller/Immun Denies wheezing Physical exam (Primary Care) Vital Signs: Last Vital Signs Temp 97.8 F 06/30/23 12:41 Pulse 87 06/30/23 12:41 Resp 13 06/30/23 12:41 BP 126/78 06/30/23 12:41 Pulse Ox 98 06/30/23 12:41 Oxygen Delivery Method Room Air 06/30/23 12:41 BMI result Body Mass Index 25.4 Tobacco/Smoking Status: Tobacco use Status Tobacco use date assessed 06/30/23 06/30/23 12:55 Patient Tobacco Use Status Former Tobacco user 06/30/23 12:55 Tobacco use type Cigarette 06/30/23 12:55 e-Cigarette/Vaping Use Never Used 06/30/23 12:55 PHQ-9: PHQ-9 Score PHQ-9: Total score 3 06/30/23 13:05 Depression Screening Interpretation: Negative Thrive Assessment: Date of Thrive Assessment Date Thrive assessed 06/30/23 06/30/23 12:55 Currently or been in a relationship where the following occur: no concerns reported Const General: no acute distress and well developed Nutritional Appearance: well nourished Orientation/consciousness: patient oriented x3 HENMT Head: Yes normocephalic and Yes atraumatic Eyes General: appearance normal, both eyes and all related structures Pupils: Equal, round and reactive pupils present EOM: EOMs intact bilaterally Resp Effort & Inspection: normal respiratory effort Auscultation: clear to auscultation bilaterally Cardio Rate: regular rate Rhythm: regular rhythm Heart sounds: S1 normal heart sound present, S2 normal heart sound present, no gallops, no murmurs and no rubs Neuro General: patient oriented x3 and gait normal Cranial nerves: Yes Equal, round and reactive pupils present Psych Affect: normal affect Assessment and Plan Assessment & Plan (1) Hypertension: Code(s): I10 - Essential (primary) hypertension Plan: Blood?pressure?is?controlled.??Goal?is?less?than?140/90 Continue?current?medication (2) Chronic low back pain: Code(s): M54.50 - Low back pain, unspecified; G89.29 - Other chronic pain Plan: Advised?she?return?to?[facility]-will?make?referral (3) Hand pain: Code(s): M79.643 - Pain in unspecified hand Plan: Can?use?diclofenac?gel Ice/heat Check?inflammatory?markers (4) Fibromyalgia: Code(s): M79.7 - Fibromyalgia Plan: Will?increase?her?duloxetine Encouraged?exercise-she?will?be?better?able?to?exercise?after?pain?is?better?controlled?at?[facility]?with?prescribed?physical?therapy?and?physiatry (5) Right hip pain: Code(s): M25.551 - Pain in right hip Plan: Continue?cyclobenzaprine?at?bedtime. She?can?use?topical?diclofenac?gel Referred?to?physiatry?at?[facility] (6) Polyarthralgia: Code(s): M25.50 - Pain in unspecified joint Plan: Joint?pain?in?multiple?areas?including?hand?back?hips?and?neck Check?inflammatory?markers (7) Rectocele: Code(s): N81.6 - Rectocele Plan: Referred?to?surgery (8) Laboratory exam ordered as part of routine general medical examination: Code(s): Z00.00 - Encounter for general adult medical examination without abnormal findings Plan: Check?labs Orders: Orders Lipid Panel Today Z00.00 - Encounter for general adult medical examination without abnormal findings Microalbumin, Random (w Creat) Today I10 - Essential (primary) hypertension UA and rflx microscopic Today Z00.00 - Encounter for general adult medical examination without abnormal findings Vitamin D 25-OH Total Today E55.9 - Vitamin D deficiency, unspecified Erythrocyte Sedimentation Rate Today M25.50 - Pain in unspecified joint CRP High Sensitivity Today M25.50 - Pain in unspecified joint Rheumatoid Factor Today M25.50 - Pain in unspecified joint CHUCK Reflex Titer and Pattern Today M25.50 - Pain in unspecified joint Comprehensive [place]. Panel Fast Today Z00.00 - Encounter for general adult medical examination without abnormal findings TSH reflex Free T4 Today Z00.00 - Encounter for general adult medical examination without abnormal findings Complete Blood Count Auto Diff Today Z00.00 - Encounter for general adult medical examination without abnormal findings Vitamin B12 and Folate Today E53.8 - Deficiency of other specified B group vitamins Referrals Physiatry Referral G89.29 - Other chronic pain, M25.551 - Pain in right hip, M50.90 - Cervical disc disorder, unspecified, unspecified cervical region, M54.2 - Cervicalgia, M54.50 - Low back pain, unspecified, M79.7 - Fibromyalgia General Surgery Referral N81.6 - Rectocele Medications: New diclofenac sodium 1% 4 grams topical QID 200 grams 2RF 30 days M25.50 - Pain in unspecified joint Changed From cyclobenzaprine 5 mg PO BID To cyclobenzaprine 5 mg PO .qhs 30 tabs 0RF 30 days From duloxetine (Cymbalta) 60 mg PO DAILY 90 caps 2RF F32.A - Depression, unspecified, F41.9 - Anxiety disorder, unspecified, G89.29 - Other chronic pain, M54.9 - Dorsalgia, unspecified, M79.7 - Fibromyalgia To duloxetine (Cymbalta) 60 mg PO BID 180 caps 2RF 90 days F32.A - Depression, unspecified, F41.9 - Anxiety disorder, unspecified, G89.29 - Other chronic pain, M54.9 - Dorsalgia, unspecified, M79.7 - Fibromyalgia Coding Level of Care Code Est Pt Level 4 (29214) Diagnoses Hypertension I10 Chronic low back pain M54.50; G89.29 Hand pain M79.643 Fibromyalgia M79.7 Right hip pain M25.551 Polyarthralgia M25.50 Rectocele N81.6 Laboratory exam ordered as part of routine general medical examination Z00.00 Additional Codes WILBER-7 Assessment Billing - WILBER-7 Assessment Tool: WILBER-7 Assessment 67014 ([id number])
== END 2023-06-30 13:31 | disposition home or self-care (01) ==
PROVIDERS: PCP Hospitalist; Visit Provider Family Medicine
DX: I10 Essential (primary) hypertension (principal); M54.50 Low back pain, unspecified; G89.29 Other chronic pain; M79.643 Pain in unspecified hand; M79.7 Fibromyalgia; M25.551 Pain in right hip; M25.50 Pain in unspecified joint; N81.6 Rectocele; Z00.00 Encounter for general adult medical examination without abnormal findings
CPT/HCPCS: 99214

== ENCOUNTER 2023-09-15 10:50 | Outpatient (AMB) | payer OTHER, SELFPAY ==
[2023-09-15 11:08] VITALS: BP 130/78; PULSE 106; TEMP 36.8; O2SAT 97; BMI 26.0
--- NOTE | 2023-09-15 11:08 | AM.OFFWIN_ITS ---
Intake Vital Signs 09/15/23 11:08 Height 5 ft Weight 133 lb BMI 26.0 BP 130/78 Blood Pressure Location Lt brachial Position Sitting Pulse 106 H Pulse Source Pulse Oximeter Temp 98.3 F Temp Source Temporal Artery Scan Pulse Oximetry (%) 97 Oxygen Delivery Method Room Air Intake Visit Reasons: EP coughed so hard pulled back (lobb) Intake Note: pt is here today for coughed so hard pulled back started yesterday Patient Tobacco Use Status: Former Tobacco user Allergies celecoxib [From CELEBREX] Allergy (Unknown, Verified 09/15/23 11:11) GASTRITIS ibuprofen [IBUPROFEN] Allergy (Unknown, Verified 09/15/23 11:11) GASTRITIS lactose [LACTOSE] Allergy (Unknown, Verified 09/15/23 11:11) STOMACH UPSET latex [LATEX] Allergy (Unknown, Verified 09/15/23 11:11) RASH metaxalone [From SKELAXIN] Allergy (Unknown, Verified 09/15/23 11:11) GASTRITIS NSAIDS (Non-Steroidal Anti-Inflamma [NSAIDS] Allergy (Unknown, Verified 09/15/23 11:11) GASTRITIS rofecoxib [From VIOXX] Allergy (Unknown, Verified 09/15/23 11:11) GASTRITIS Do you need a note to return to daycare/school/sports/work: No HPI HPI Comments History of Present Illness Details 57 y/o female who presents to [facility] with c/o severe midline back pain since Tue. Pt reports coughing so hard and triggered her back pain. Pt with h/o Chronic lower back pain and currently being managed at [facility]. Denies bladder or bowel symptoms. [facility] Medical History (Updated 09/15/23 @ 11:21 by Leslie Valdez NP) Cervical disc disease Sciatica Migraine Fibromyalgia Insomnia Anxiety Depression Surgical History History of colonoscopy Family History Other Mental health disorder Social History Housing: Apartment Alcohol intake: never Patient Tobacco Use Status: Former Tobacco user Tobacco use type: Cigarette e-Cigarette/Vaping Use: Never Used Substance Use Type: Marijuana service: No Current occupational status: disabled Cognitive needs: No Hearing needs: No Vision needs: No Review of Systems Const All systems reviewed & are unremarkable except as noted in HPI and below Physical Exam Vital Signs: Last Vital Signs Temp 98.3 F 09/15/23 11:08 Pulse 106 H 09/15/23 11:08 BP 130/78 09/15/23 11:08 Pulse Ox 97 09/15/23 11:08 Oxygen Delivery Method Room Air 09/15/23 11:08 BMI result Body Mass Index 26.0 Const General: no acute distress; No comfortable Orientation/consciousness: patient oriented x3 Back/Spine/Pelvis Back: back tenderness Thoracic/Lumbar Spine: thoracic and lumbar spine normal to inspection, thoraco- lumbar ROM limited (Limited due to pain) with forward flexion, with lateral flexion to the right, with lateral flexion to the left, with rotation to the ri ght and with rotation to the left, thoraco-lumbar spasm bilaterally and lumbar spinal tenderness at L4 and at L5 Neuro General: patient oriented x3, gait normal and moves all extremities Psych Speech and movement: Normal speech and movement present Attitude: cooperative Assessment & Plan Assessment & Plan (1) Chronic low back pain: Code(s): M54.50 - Low back pain, unspecified; G89.29 - Other chronic pain Qualifiers: Back pain laterality: midline Sciatica presence: without sciatica Qualified Code(s): M54.50 - Low back pain, unspecified; G89.29 - Other chronic pain Plan: - REfilled and increased dose of Flexeril - Acetaminophen 650 x 2 Tabs for pain relief. - IceHot - F/U with [facility] as scheduled. Medications: New cyclobenzaprine 10 mg PO BEDTIME 20 tabs 0RF G89.29 - Other chronic pain, M54.50 - Low back pain, unspecified Discontinued cyclobenzaprine Discontinued Reason: Duplicate 5 mg PO .qhs 30 days 30 tabs 0RF Coding Level of Care Code Est Pt Level 3 (53614) Diagnoses Chronic midline low back pain without sciatica M54.50; G89.29 Back pain laterality: midline Sciatica presence: without sciatica Time Spent (min) 15
== END 2023-09-15 11:20 | disposition home or self-care (01) ==
PROVIDERS: PCP Family Medicine; Visit Provider Nurse Practitioner Family
DX: M54.50 Low back pain, unspecified (principal); G89.29 Other chronic pain
CPT/HCPCS: 99213

== ENCOUNTER 2023-10-26 08:02 | Outpatient (AMB) | payer OTHER, SELFPAY ==
--- NOTE | 2023-10-26 08:14 | MHC.PC.OV ---
Vital Signs 10/26/23 08:25 Height 5 ft Weight 132 lb 8 oz BMI 25.9 BP 128/76 Blood Pressure Location Lt brachial Position Sitting Respiration 14 Pulse 80 Pulse Source Pulse Oximeter Temp 98.1 F Temp Source Oral Pulse Oximetry (%) 96 Oxygen Delivery Method Room Air Intake Visit Reasons: Follow up Intake Note: Follow up. Left shoulder, spine, neck, rib pain. Patient brought a list of concerns. Resolution Analyst Required: No Allergies celecoxib [From CELEBREX] Allergy (Unknown, Verified 10/26/23 08:16) GASTRITIS ibuprofen [IBUPROFEN] Allergy (Unknown, Verified 10/26/23 08:16) GASTRITIS lactose [LACTOSE] Allergy (Unknown, Verified 10/26/23 08:16) STOMACH UPSET latex [LATEX] Allergy (Unknown, Verified 10/26/23 08:16) RASH metaxalone [From SKELAXIN] Allergy (Unknown, Verified 10/26/23 08:16) GASTRITIS NSAIDS (Non-Steroidal Anti-Inflamma [NSAIDS] Allergy (Unknown, Verified 10/26/23 08:16) GASTRITIS rofecoxib [From VIOXX] Allergy (Unknown, Verified 10/26/23 08:16) GASTRITIS Tobacco use date assessed: 10/26/23 Dental Screening Dental Screen Date: 10/26/23 Did you have a dental visit in the last 12 months?: No Did you have a dental problem in the last 6 months where you did not have access to dental care?: No Was dental information given to patient?: Yes HPI Follow up HPI Details Follow-up?numerous?chronic?complaints?including Cervicalgia,?low?back?pain,?right?hip?pain,?fibromyalgia I?increased?duloxetine,?continued?cyclobenzaprine?and?added?topical?diclofenac. I?referred?her?to?physiatry?at[facility] Ordered?inflammatory?markers?and?labs. Patient?did?not?get?labs?drawn Pt has complaints of R bunion. [facility] Medical History (Updated 10/26/23 @ 09:02 by Kian Schultz MD) Cervical disc disease Sciatica Migraine Fibromyalgia Insomnia Anxiety Depression Surgical History (Updated 10/26/23 @ 09:01 by Salvatore Payton) History of colonoscopy Family History Other Mental health disorder Social History Housing: Apartment Alcohol intake: never Patient Tobacco Use Status: Former Tobacco user Tobacco use type: Cigarette e-Cigarette/Vaping Use: Never Used Substance Use Type: Marijuana service: No Current occupational status: disabled Cognitive needs: No Hearing needs: No Vision needs: No Questionnaire Thrive Questionnaire Date Thrive assessed: 06/30/23 AUDIT C Alcohol Use Questionnaire (AUDIT-C) 1. How often do you have a drink containing alcohol?: Never 3. How often do you have six or more drinks on one occasion?: Never Total Score: 0 WILBER-7 AMB Questionnaire WILBER-7 Date WILBER - 7 assessed: 06/30/23 Source: Developed by Drs. Wilfredo Yeung, Mallory Cornelius, Markos Calderon and colleagues, with an educational wolf from [employer]. Review of Systems Const Denies chills, Denies fatigue, Denies fever(s), Denies headache(s) and Denies weakness ENT Denies dizziness and Denies headache(s) Card Denies dyspnea Resp Denies cough, Denies dyspnea, Denies wheezing and Denies other (shortness of breath) Musc Denies numbness and Denies tingling Neuro Denies dizziness, Denies headache(s), Denies numbness, Denies tingling and Denies weakness Psych Denies anxiety and Denies depression Endo Denies fatigue Aller/Immun Denies wheezing Physical exam (Primary Care) Vital Signs: Last Vital Signs Temp 98.1 F 10/26/23 08:25 Pulse 80 10/26/23 08:25 Resp 14 10/26/23 08:25 BP 128/76 10/26/23 08:25 Pulse Ox 96 10/26/23 08:25 Oxygen Delivery Method Room Air 10/26/23 08:25 BMI result Body Mass Index 25.9 Tobacco/Smoking Status: Tobacco use Status Tobacco use date assessed 10/26/23 10/26/23 08:22 Patient Tobacco Use Status Former Tobacco user 10/26/23 08:22 Tobacco use type Cigarette 10/26/23 08:22 e-Cigarette/Vaping Use Never Used 10/26/23 08:22 Thrive Assessment: Date of Thrive Assessment Date Thrive assessed 06/30/23 10/26/23 08:22 Const General: well developed; No acute distress Nutritional Appearance: well nourished Orientation/consciousness: patient oriented x3 HENMT Head: Yes normocephalic and Yes atraumatic Eyes General: appearance normal, both eyes and all related structures Pupils: Equal, round and reactive pupils present EOM: EOMs intact bilaterally Resp Effort & Inspection: normal respiratory effort Neuro General: patient oriented x3 and gait normal Cranial nerves: Yes Equal, round and reactive pupils present Psych Affect: normal affect Assessment and Plan Assessment & Plan (1) Fibromyalgia: Code(s): M79.7 - Fibromyalgia Plan: Ongoing?fibromyalgia Encouraged?exercise?but?patient?needs?some?muscular?deconditioning?and?pain?relief?so?I?have?referred?her?to?physiatry?at?[place]. Patient?has?not?started?with?them?yet?so?encouraged?her?to?do?so?and?she?agrees?to. (2) Polyarthralgia: Code(s): M25.50 - Pain in unspecified joint Plan: Significant?polyarthralgia?and?also?locking?at?bilateral?hands?and?fingers. Checking?inflammatory?markers May?need?a?referral?to?Rheumatology Continue?topical?diclofenac.??Patient?says?she?does?not?tolerate?oral?NSAIDs (3) Rectocele: Code(s): N81.6 - Rectocele Plan: Had?referred?her?to?General?surgery?but?she?has?not?heard?from?them?yet. Will?ask?the?office?to?check?on?the?status. (4) Chronic low back pain: Code(s): M54.50 - Low back pain, unspecified; G89.29 - Other chronic pain Qualifiers: Back pain laterality: midline Sciatica presence: without sciatica Qualified Code(s): M54.50 - Low back pain, unspecified; G89.29 - Other chronic pain Plan: As?above,?follow-up?with?[place] Check?x-ray (5) Left shoulder pain: Code(s): M25.512 - Pain in left shoulder Plan: Likely?secondary?to?cervicalgia,?fibromyalgia?and?possible?inflammatory?arthritis?or?tendinitis. Workup?is?underway (6) Cervicalgia: Code(s): M54.2 - Cervicalgia Plan: Check?x-ray Follow-up?an?inflammatory?marker Refer?to?[place] (7) Bunion: Code(s): M21.619 - Bunion of unspecified foot Plan: Right?bunion?and?patient?is?referred?to?Podiatry (8) Screening for osteoporosis: Code(s): Z13.820 - Encounter for screening for osteoporosis Plan: History?of?total?hysterectomy?history?of?total?hysterectomy?and?prior?smoker High?risk?for?osteoporosis?and?bone?density?test?is?ordered (9) Post-menopausal: Code(s): Z78.0 - Asymptomatic menopausal state Plan: As?above (10) Status post hysterectomy: Code(s): Z90.710 - Acquired absence of both cervix and uterus Plan: As?above Orders: Orders Comprehensive Met. Panel Today Z00.00 - Encounter for general adult medical examination without abnormal findings XR DEXA axial skeleton Today M81.0 - Age-related osteoporosis without current pathological fracture, Z78.0 - Asymptomatic menopausal state, Z90.710 - Acquired absence of both cervix and uterus XR cervical spine 2V Today M54.2 - Cervicalgia XR lumbar spine 2-3V Today M54.50 - Low back pain, unspecified LDL Cholesterol Direct Today Z00.00 - Encounter for general adult medical examination without abnormal findings Referrals Podiatry Referral M21.619 - Bunion of unspecified foot Coding Level of Care Code Est Pt Level 4 (28962) Diagnoses Fibromyalgia M79.7 Polyarthralgia M25.50 Rectocele N81.6 Chronic midline low back pain without sciatica M54.50; G89.29 Back pain laterality: midline Sciatica presence: without sciatica Left shoulder pain M25.512 Cervicalgia M54.2 Bunion M21.619 Screening for osteoporosis Z13.820 Post-menopausal Z78.0 Status post hysterectomy Z90.710
[2023-10-26 08:25] VITALS: BP 128/76; PULSE 80; RESP 14; TEMP 36.7; O2SAT 96; BMI 25.9
== END 2023-10-26 09:01 | disposition home or self-care (01) ==
PROVIDERS: PCP Family Medicine; Visit Provider Family Medicine
DX: M79.7 Fibromyalgia (principal); M25.50 Pain in unspecified joint; N81.6 Rectocele; M54.50 Low back pain, unspecified; G89.29 Other chronic pain; M25.512 Pain in left shoulder; M54.2 Cervicalgia; M21.619 Bunion of unspecified foot; Z13.820 Encounter for screening for osteoporosis; Z78.0 Asymptomatic menopausal state; Z90.710 Acquired absence of both cervix and uterus
CPT/HCPCS: 99214

== ENCOUNTER 2023-11-02 20:03 | Inpatient (IN) | payer OTHER, SELFPAY ==
--- NOTE | ~2023-11-02 | CT_ITS ---
EXAMINATION: CT ABDOMEN AND PELVIS WITH CONTRAST CLINICAL INFORMATION: Abdominal pain, question obstruction COMPARISON: None available. TECHNIQUE: Multidetector volumetric images were obtained from the superior aspect of the liver through the pubic symphysis following administration 85 mL of Omnipaque 350 intravenous contrast. Sagittal and coronal reformatted images were obtained on the technologist's workstation. Oral contrast: No This CT examination was performed using dose optimization techniques as appropriate, variously including the following: *Automated exposure control *Adjustment of mA and/or kV according to patient size (this includes techniques or standardized protocols for targeted exams where dose is matched to indication/reason for exam; i.e. extremities or head) *Use of iterative reconstruction technique DLP: 397 mGy-cm FINDINGS: LUNG BASES: Subsegmental left lower lobe atelectasis. LIVER, GALLBLADDER, AND BILIARY TREE: The liver is normal in size, shape, and attenuation. There are multiple scattered hypodensities in the liver, statistically favored to represent cysts. No biliary ductal dilatation is present. The gallbladder is unremarkable. PANCREAS: Unremarkable. SPLEEN: Unremarkable. ADRENAL GLANDS: Unremarkable. KIDNEYS AND URETERS: Bilateral nephrograms are symmetric. No hydronephrosis or obstructing calculus identified. Small hypodensity in the mid right kidney favors a cyst; no follow-up recommended. BLADDER: Unremarkable. GASTROINTESTINAL TRACT: There is a swirling appearance of the mesentery and associated vessels and collapsed small bowel loops in the right abdomen, as seen on axial image 42. The precise course of the colon is difficult to follow in this region, with some collapsed colon also suspected to course through this region, as well as nearby distended loop of colon in the central abdomen. There are multiple, mildly prominent gas-filled small bowel loops predominantly in the right abdomen. Overall appearance is suspicious for a volvulus or internal hernia resulting in developing bowel obstruction. ABDOMINAL WALL: No significant hernia is appreciated. LYMPH NODES: Normal. VASCULAR: There is atherosclerotic calcification along the aorta and iliac arteries. 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 PELVIC VISCERA: Patient is status post hysterectomy. OSSEOUS STRUCTURES: Unremarkable. CT/CT abdomen pelvis w IV con IMPRESSION: 1. Swirling appearance of the mesentery and associated vessels along with collapsed small bowel loops in the right abdomen. There is also suspected to be a collapsed segment of colon coursing through this region. Overall appearance is suspicious for volvulus or internal hernia resulting in developing bowel obstruction. 2. 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 This critical result was discussed with Dr. Gerard on 11/03/2023 4:44 AM, and it was ascertained that the content and urgency of the report was understood at the time of direct communication.
[2023-11-02 20:30] VITALS: BP 176/93; PULSE 79; RESP 20; TEMP 36.6; O2SAT 100; BMI 25.2
--- NOTE | 2023-11-02 20:33 | ED.GENADULT ---
HPI - General Adult General Chief complaint: Nausea/Vomiting/Diarrhea Stated complaint: vomiting and abd pain Time Seen by Provider: 11/03/23 01:33 Source: patient and family Mode of arrival: ambulatory History of Present Illness HPI narrative: 58-year-old female, denies any history of alcohol/smoking/drug use reports that she has had 2 days of significant mid abdominal discomfort, primarily over her prior abdominal incision, reports decreased flatus and increased burping, has also had nausea and vomiting but denies any fevers or chills. Related Data Home Medications ?Medication ?Instructions ?Recorded ?Confirmed acetaminophen 650 mg 650 mg PO Q12H 10/26/23 tablet,extended release (Tylenol Arthritis Pain) cholecalciferol (vitamin D3) 25 25 mcg PO DAILY 10/26/23 mcg (1,000 unit) capsule docusate sodium 100 mg capsule 100 mg PO DAILY 10/26/23 (Colace) docusate sodium 100 mg capsule 100 mg PO DAILY 10/26/23 (Colace) Previous Rx's ?Medication ?Instructions ?Recorded miscellaneous medical supply #1 ea 03/18/22 (Blood Pressure Cuff) blood pressure monitor #1 ea 04/21/22 multivitamin with folic acid 400 1 tab PO DAILY #90 tabs 08/09/22 mcg tablet (Daily-Malick (with folic acid)) duloxetine 60 mg capsule,delayed 60 mg PO BID 90 days #180 caps 06/30/23 release (Cymbalta) lisinopril 10 mg tablet 10 mg PO DAILY #30 tabs 08/15/23 hydroxyzine HCl 50 mg tablet 50 mg PO BEDTIME Insomnia #90 tabs 08/22/23 trazodone 50 mg tablet 50 mg PO TID 1 month #90 tabs 09/30/23 diclofenac sodium 1 % topical gel 4 g topical QID 30 days #200 grams 10/12/23 cyclobenzaprine 10 mg tablet 10 mg PO BEDTIME #20 tabs 10/21/23 Allergies Allergy/AdvReac Type Severity Reaction Status Date / Time celecoxib [From CELEBREX] Allergy Unknown GASTRITIS Verified 11/02/23 20:34 ibuprofen [IBUPROFEN] Allergy Unknown GASTRITIS Verified 11/02/23 20:34 lactose [LACTOSE] Allergy Unknown STOMACH Verified 11/02/23 20:34 UPSET latex [LATEX] Allergy Unknown RASH Verified 05/08/24 20:34 metaxalone [From SKELAXIN] Allergy Unknown GASTRITIS Verified 11/02/23 20:34 NSAIDS (Non-Steroidal Allergy Unknown GASTRITIS Verified 11/02/23 20:34 Anti-Inflamma [NSAIDS] rofecoxib [From VIOXX] Allergy Unknown GASTRITIS Verified 11/02/23 20:34 Review of Systems Review of Systems: Pertinent positives and negatives as stated in [facility] Past Medical History Source: nursing notes reviewed Medical History Cervical disc disease Sciatica Migraine Fibromyalgia Insomnia Anxiety Depression Surgical History History of colonoscopy Family History Family History Other Mental health disorder Social History Social History Housing: Apartment Alcohol intake: never Patient Tobacco Use Status: Former Tobacco user Tobacco use type: Cigarette Smoked in Last 30 Days: No e-Cigarette/Vaping Use: Never Used Use of substances other than those prescribed or required for medical reasons: No Substance Use Type: Marijuana Advance Directives: No Advance Directives Information Provided: Yes Do you have a plan to hurt others: No Plan service: No Current occupational status: disabled Cognitive needs: No Hearing needs: No Vision needs: No Physical Exam ED Vital Signs: Vital Signs - 24 hr 11/02/23 20:30 11/03/23 01:43 Temperature 98 F 97.8 F Pulse Rate 79 81 Respiratory Rate 20 16 Blood Pressure 176/93 H 165/91 H Pulse Oximetry 100 98 Oxygen Delivery Method Room Air Room Air BMI result Body Mass Index 25.2 VITAL SIGNS: Reviewed. GENERAL: Well developed, well nourished, in no acute distress. HEAD: Normocephalic/atraumatic EYES: PERRLA, EOMI EARS: Ext canals without abnormality NOSE: Nares patent bilateral OROPHARYNX: no oral lesions noted, posterior pharynx clear, multiple dental caries NECK: Supple, no adenopathy LUNGS: Normal breath sounds. No adventitious sounds or accessory muscle use. SpO2<98> CARDIOVASCULAR: Regular rate and rhythm without noted murmurs ABDOMEN: Soft, tenderness on palpation, maximal over midline lower abdominal incision but no palpable hernias appreciated, non-distended with bowel sounds. MUSCULOSKELETAL: No tenderness, deformities, or effusions noted on gross inspection. EXTREMITIES: No cyanosis, clubbing or edema. SKIN: Inspection of the skin reveals no rashes NEUROLOGIC: Alert and oriented x 4. Strength and sensation to light touch were grossly intact x 4. Course Course Course Narrative: This is a Rapid Medical Examination (RME) performed by Phil Garza PA-C in triage. Full HPI, ROS, assessment and treatment plan per primary provider in the Main ED. 58 yo female hx of anxiety, depression, migraine, hypertension, fibromyalgia, polyarthralgia, insomnia, rectocele presents to the ED today for evaluation of nausea, vomiting, diarrhea, and lower abdominal pain x2 days. Unable to tolerate PO intake. Reports subjective fevers and chills. No known sick contacts. denies etoh consumption. Denies marijuana use. Denies other illicit substance use. Plan: labs, viral serology, UA, UDS Medications Administered Discontinued Medications Generic Name Dose Route Start Last Admin Trade Name Freq PRN Reason Stop Dose Admin Sodium Chloride 1,000 mls @ 999 mls/hr 11/03/23 02:30 11/03/23 03:42 Ns IV 11/03/23 03:30 Infused .Q1H1M NICK Infusion Piperacillin Sod/Tazobactam 50 mls @ 100 mls/hr 11/03/23 02:22 11/03/23 03:08 Sod 3.375 gm/ Sodium Chloride IV 11/03/23 02:51 Infused ONCE ONE Infusion Iohexol 85 ml 11/03/23 03:39 11/03/23 03:40 Iohexol 350 Mg/Ml 100 Ml Infus..Btl IV 11/03/23 03:40 85 ml ONCE ONE Administration Ondansetron HCl 4 mg 11/03/23 01:27 11/03/23 01:29 Ondansetron Hcl 4 Mg/2 Ml Vial IVPUSH 11/03/23 01:28 4 mg ONCE ONE Administration Medical Decision Making Medical Decision Making [facility] Narrative: 0222: 58-year-old female with history and clinical presentation, DDX: Obstruction secondary to hernia, obstructions secondary to adhesions, lower clinical suspicion for diverticulitis/appendicitis/cholecystitis. INTERVENTION: IV fluids, antibiotics, antiemetics. I reviewed all investigations and hematologic indices are significant for leukocytosis and left shift but no anemia or thrombocytopenia. Chemistry indices are negative for JORGE and there is no electrolyte or significant liver enzyme derangements, lactic acid-2.3. Urinalysis is negative for UTI. UDS is only positive for marijuana. Viral testing is negative for influenza/RSV/COVID-19. 0444: CT scan demonstrates findings concerning for developing bowel obstruction, possible volvulus/internal hernia. 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 1456: I discussed case with General surgery, Dr. Christian, who will evaluate the patient at bedside this morning. Patient otherwise remains hemodynamically stable and is currently pain-free but being kept NPO at this time. Differential Diagnosis Differential Diagnoses: The differential diagnosis associated with the presentation includes Please see the discussion above Admission/Observation Consideration of admission/observation: Escalation of care including admission/observation considered Please see the discussion above Consult Healthcare Provider Management of the patient was discussed with: Tank Cleaning Supervisor Please see the discussion above Lab Data MDM Lab Attestation statement: I reviewed the patient's lab results. Please see the discussion above 11/02/23 21:43 11/02/23 21:43 Labs: Lab Results 11/02/23 11/02/23 11/03/23 Range/Units 21:43 22:34 02:28 WBC 17.4 H (4.8-10.8) X10*3/uL RBC 4.71 (4.20-5.50) X10*6/uL Hgb 13.6 (12.0-16.0) g/dl Hct 38.8 (37.0-47.0) % MCV 82.4 (80.0-98.0) fL MCH 28.9 (27.0-33.0) pg MCHC 35.1 H (31.0-35.0) g/dl RDW 13.8 (11.0-16.0) % Plt Count 399 (160-400) X10*3/uL MPV 8.6 L (9.4-12.3) fL Immature Gran % (Auto) 0.6 H (0.0-0.4) % Neut % (Auto) 84.3 H (45-73) % Lymph % (Auto) 8.5 L (20-40) % [place] % (Auto) 6.4 (2-11) % Eos % (Auto) 0.0 (0-4) % Baso % (Auto) 0.2 (0-2) % Lymph # (Auto) 1.5 (1.2-4.9) X10*3/uL [place] # (Auto) 1.1 (0.1-1.2) X10*3/uL Eos # (Auto) 0.0 (0.0-0.4) X10*3/uL Baso # (Auto) 0.0 (0.0-0.2) X10*3/uL Abs Immat Gran (auto) 0.10 H (0.00-0.03) X10*3/uL Absolute Neuts (auto) 14.7 H (2.0-8.3) x10*3/uL Absolute Nucleated RBC 0.000 (0.0-0.012) X10*3/uL Nucleated RBC % (auto) 0.0 (0.0-0.2) /100WBC Sodium 136 (135-145) mmol/L Potassium 4.1 (3.3-5.1) mmol/L Chloride 97 (96-108) mmol/L Carbon Dioxide 22 (22-29) mmol/L Anion Gap 21 H (12-20) BUN 23 H (9-16) mg/dL Creatinine 1.04 (0.5-1.4) mg/dL Estim Creat Clear Calc 46.0 Estimated GFR 54 Random Glucose 171 H (60-115) mg/dL Lactic Acid 2.3 H* (0.5-2.0) mmol/L Calcium 10.9 H D (8.4-10.2) mg/dL Magnesium 2.0 (1.6-2.6) mg/dL Total Bilirubin 0.7 (0.0-1.0) mg/dL AST 37 H (5-31) U/L ALT 26 (0-31) U/L Alkaline Phosphatase 60 (39-117) U/L Total Protein 8.2 H (6.5-8.0) g/dL Albumin 4.9 (3.5-5.0) g/dL Lipase 15 (8-78) U/L Urine Color Yellow Urine Appearance Clear Urine pH 5.5 (5.0-9.0) Ur Specific [place] 1.025 (1.005-1.025) Urine Protein 100 (2+) H (Neg-Trace) mg/dL Urine Glucose (UA) Negative (Negative) mg/dL Urine Ketones >=160 (Negative) mg/dL Urine Blood Moderate (2+) H (Negative) Urine Nitrite Negative (Negative) Ur Leukocyte Esterase Small (1+) H (Negative) Urine RBC 6-10 H (0-2) /HPF Urine WBC 6-10 H (0-5) /HPF Ur Squamous Epith Cells 6-10 (0-2) /HPF Urine Bacteria Trace (None Seen) Hyaline Casts 0-2 (0-2) /LPF Urine Opiates Screen Not Detected (Not Detect) Ur Buprenorphine Scrn Not Detected (Not Detect) ng/mL Ur Oxycodone Screen Not Detected (Not Detect) ng/mL Urine Methadone Screen Not Detected (Not Detect) ng/mL Urine Fentanyl Screen Not Detected (Not Detect) Ur Barbiturates Screen Not Detected (Not Detect) Ur Phencyclidine Scrn Not Detected (Not Detect) Ur Amphetamines Screen Not Detected (Not Detect) U Benzodiazepines Scrn Not Detected (Not Detect) Urine Cocaine Screen Not Detected (Not Detect) U Marijuana (THC) Screen POSITIVE H (Not Detect) Influenza Type A (PCR) NEGATIVE (Negative) Influenza Type B (PCR) NEGATIVE (Negative) RSV RNA Qual (PCR) NEGATIVE (Negative) SARS-CoV-2 RNA (RT-PCR) NEGATIVE (Negative) Radiology Impression Discussion of test interpretation with radiology: I have reviewed the radiologist's reading. Radiologist Impression: Please see the discussion above External Record Review External record reviewed: Outpatient record, Prior outpatient labs and Prior outpatient radiology Chronic Conditions Patient?s care impacted by: Hypertension Critical Care Time Critical Care Time Critical Care Time: Yes Total Critical Care Time: 90 Attestation: I personally attest to this time spent taking care of the patient. Discharge Plan Discharge Clinical Impression: Bowel obstruction Patient Disposition: Admitted As Inpatient Prescriptions: No Action multivitamin with folic acid [Daily-Malick (with folic acid)] 400 mcg tablet 1 tab PO DAILY Qty: 90 3RF lisinopril 10 mg tablet 10 mg PO DAILY Qty: 30 4RF hydroxyzine HCl 50 mg tablet 50 mg PO BEDTIME Qty: 90 1RF trazodone 50 mg tablet 50 mg PO TID 30 Days Qty: 90 2RF diclofenac sodium 1 % gel 4 g topical QID 30 Days Qty: 200 2RF cyclobenzaprine 10 mg tablet 10 mg PO BEDTIME Qty: 20 0RF (DME) blood pressure monitor Kit See Rx Instructions .Route Qty: 1 0RF Rx Instructions: As directed cholecalciferol (vitamin D3) 25 mcg (1,000 unit) capsule 25 mcg PO DAILY docusate sodium [Colace] 100 mg capsule 100 mg PO DAILY acetaminophen [Tylenol Arthritis Pain] 650 mg tablet extended release 650 mg PO Q12H docusate sodium [Colace] 100 mg capsule 100 mg PO DAILY (DME) Blood Pressure Cuff Misc See Rx Instructions .ROUTE .MEDSUPPLY Qty: 1 0RF Rx Instructions: As directed duloxetine [Cymbalta] 60 mg capsule,delayed release(DR/EC) 60 mg PO BID 90 Days Qty: 180 2RF Print Language: British
[2023-11-02 21:47] LABS: MANUAL DIFF FLAG NO
[2023-11-02 21:48] LABS: Basophils Percent Auto 0.2 % (0-2); Hematocrit 38.8 % (37.0-47.0); Hemoglobin 13.6 g/dl (12.0-16.0); Imm Gran Pct Auto 0.6 % (0.0-0.4); Lymphocytes Absolute Auto 1.5 X10*3/uL (1.2-4.9); Lymphocytes Percent Auto 8.5 % (20-40); Mean Corpuscular HGB Conc 35.1 g/dl (31.0-35.0); Mean Corpuscular Hemoglobin 28.9 pg (27.0-33.0); Mean Corpuscular Volume 82.4 fL (80.0-98.0); Mean Platelet Volume 8.6 fL (9.4-12.3); Monocytes Absolute Auto 1.1 X10*3/uL (0.1-1.2); Monocytes Percent Auto 6.4 % (2-11); Neutrophils Absolute Auto 14.7 x10*3/uL (2.0-8.3); Neutrophils Percent Auto 84.3 % (45-73); Platelet Count 399 X10*3/uL (160-400); Red Blood Count 4.71 X10*6/uL (4.20-5.50); Red Cell Distribution Width 13.8 % (11.0-16.0); White Blood Count 17.4 X10*3/uL (4.8-10.8)
[2023-11-02 22:04] LABS: Alanine Aminotransferase 26 U/L (0-31); Albumin Level 4.9 g/dL (3.5-5.0); Alkaline Phosphatase 60 U/L (39-117); Anion Gap 21 (12-20); Aspartate Amino Transferase 37 U/L (5-31); Bilirubin Total 0.7 mg/dL (0.0-1.0); Blood Urea Nitrogen 23 mg/dL (9-16); Calcium 10.9 mg/dL (8.4-10.2); Carbon Dioxide 22 mmol/L (22-29); Chloride 97 mmol/L (96-108); Estimated Glomerular Filt Rate 54; Glucose Random 171 mg/dL (60-115); Lipase 15 U/L (8-78); Potassium 4.1 mmol/L (3.3-5.1); Sodium 136 mmol/L (135-145); Total Protein 8.2 g/dL (6.5-8.0)
[2023-11-02 22:44] LABS: Appearance Urine Clear; Color Urine Yellow; Glucose Urine UA Negative (Negative); Leukocyte Esterase Urine Small (1+) (Negative); Nitrite Urine Negative (Negative); PH 5.5 (5.0-9.0); Specific Gravity - Urine 1.025 (1.005-1.025); UMIC TRIGGER UACC YES; Urine Blood Moderate (2+) (Negative); Urine Ketones >=160 mg/dL (Negative); Urine Protein 100 (2+) mg/dL (Neg-Trace)
[2023-11-02 22:49] LABS: Bacteria Urine Trace (None Seen); Hyaline Casts Urine 0-2 /LPF (0-2); UACC Culture Trigger YES
[2023-11-02 23:49] LABS: Influenza A PCR NEGATIVE (Negative); Influenza B PCR NEGATIVE (Negative); Resp Syncy Virus RNA Qual PCR NEGATIVE (Negative); SARS COV2 PCR INHOUSE NEGATIVE (Negative)
[2023-11-03] VITALS (17 sets, daily range): BP systolic 133–173; BP diastolic 70–101; PULSE 56–83; RESP 14–25; TEMP 36.1–37.1; O2SAT 94–98
--- OUTSIDE RECORDS SUMMARY | 2023-11-03 00:16 | XMS_ITS | Continuity of Care Document ---
Author Organization [facility] ter Address [address] [place] [id number]- Care Team Providers Care Top Frame Maker Name Role Phone Not on Staff, PCP Primary Care Physician Unavail able Encounter [facility] Date(s): 01/20/20 - 01/20/[address] [id number]- [facility] Encounter Diagnosis Chest pain(Final) - 01/20/20 Discharge Disposition: A-D/C Home Attending Physician: Saúl Renae MD Admitting Physician: Saúl Renae MD Referring Physician: Not on Staff, Referring MD Allergies, Adverse Reactions, Alerts Substance Reaction Severity Status ibuprofen Active Skelaxin Active Motrin Active Naprosyn Active Celebrex Active Vioxx Active Latex rash Active Immunizations Given and Recorded Vaccine Date Status Refusal Reason tetanus/diphtheria/pertussis, acel(Tdap) 09/15/18 Given pneumococcal 23-valent vaccine 05/06/10 Given influenza virus vaccine, inactivated 05/06/10 Give n Medications Claritin 10 mg oral tablet 10 mg, 1, tablet, By Mouth, Daily, # 30 tablet, Refills 0, Maintenance, 09/18/18 11:56:49 EDT Start Date: 09/18/18 Status: Ordered gabapentin 300 mg oral capsule 300 mg, 1, capsule, By Mouth, 3 times a day, # 90 capsule, Refills 0, Maintenance, 09/18/18 11:56:28 EDT Start Date: 09/18/18 Status: Ordered Results Radiology Reports * Exam Date Time Procedure Performing Provider Status 01/20/20 10:50 AM Chest 2 Views Frontal and Lat Prudence Marshall; Izaiah (Verified) Notes: (Chest 2 Views Frontal and Lat) Reason For Exam: Angina RESULT: Chest 2 Views Frontal and Lat Chest 2 Views Frontal and Lat Reason: Angina COMPARISON: 05/03/10 FINDINGS: LINES AND TUBES: None. LUNGS AND PLEURA: Clear lungs. Normal pulmonary vascularity. No pleural effusion. No pneumothorax. HEART, MEDIASTINUM AND ANTHONY: Heart is normal in size. Normal mediastinal and hilar contour. BONES AND SOFT TISSUES: No acute abnormality. IMPRESSION: No acute abnormality. WSN: [id number] Ordering Physician: Orlando Purdy Dictated By: Nicolle Gómez MD, V Dictated Date/Time: 01/20/20 11:17 a Reviewed By: Nicolle Gómez MD, V Signed By: Nicolle Gómez MD, V Signed Date/Time: 01/20/20 11:17 am Transcribed By: ELIZABETH Transcribed Date/Time: 01/20/20 11:16 am Vital Signs Most recent to oldest [Reference Range]: 1 2 3 Weight 45.2 kg (01/20/20 9:45 AM) 45.2 kg (01/20/20 9:29 AM) Oxygen Saturation [94-100 %] 99 % (01/20/20 1:36 PM) 100 % (01/20/20 12:16 PM) 100 % (01/20/20 9:37 AM) Pulse Rate [55-90 bpm] 78 bpm (01/20/20 1:36 PM) 75 bpm (01/20/20 12:16 PM) 103 bpm *H* (01/20/20 9:37 AM) Blood Pressure [90-138/55-84 mm Hg] 157/96mm Hg *H* (01/20/20 1:36 PM) 159/98mm Hg *H* (01/20/20 12:16 PM) 159/107mm Hg *H* (01/20/20 9:37 AM) Respiratory Rate [16-30 br/min] 16 br/min (01/20/20 1:36 PM) 20 br/min (01/20/20 12:16 PM) 13 br/min *L* (01/20/20 9:37 AM) Temperature [96.8-100.4 DegF] 97.9 DegF (01/20/20 1:36 PM) 97.6 DegF (01/20/20 9:37 AM) 98.0 DegF (01/20/20 9:29 AM) Mode of Delivery (Oxygen) Room air (01/20/20 1:36 PM) Room air (01/20/20 12:16 PM) Room air (01/20/20 9:37 AM) Blood pressure sites Arm, left (01/20/20 1:36 PM) Arm, left (01/20/20 12:16 PM) Arm, left (01/20/20 9:37 AM) Temperature Route Oral (01/20/20 1:36 PM) Oral (01/20/20 9:37 AM) Oral (01/20/20 9:29 AM) Dry Weight 45.2 kg (01/20/20 9:45 AM) 45.2 kg (01/20/20 9:29 AM) Weight Obtained Via Standing scale (01/20/20 9:29 AM) Dry Weight Obtained Via Standing scale (01/20/20 9:29 AM) Social History Social History Type Response Tobacco Other: 1 ppd current ly, previously 1/2 ppd, 20 pack yr history. Sex
[2023-11-03 00:21] LABS: Amphetamine Screen Urine Not Detected (Not Detect); Barbiturates, Urine Not Detected (Not Detect); Benzodiazepines Screen Urine Not Detected (Not Detect); Buprenorphine Scr Not Detected (Not Detect); Cannabinoid Screen Urine POSITIVE (Not Detect); Cocaine Screen Urine Not Detected (Not Detect); Fentanyl, urine Not Detected (Not Detect); Methadone Screen, Urine Not Detected (Not Detect); Opiate Screen Urine Not Detected (Not Detect); Oxycodone Screen Urine Not Detected (Not Detect); Phencyclidine Screen Urine Not Detected (Not Detect)
--- NOTE | 2023-11-03 01:15 | PC.NURSE ---
a&ox4. vss and up to date. pt presents to the ED w/ lower abd pain/n/v/d x 2 days. abd tender upon palpation. pt also verbalizing chills - denies any fever. pt states pain decreased yesterday but sx increased this evening. 20gIV placed in the left AC - patent/intact. no sob/wob noted. respirations even and unlabored. pt waiting to be seen by ED provider. plan of care ongoing. call kaye placed within reach.
[2023-11-03] MEDS: ondansetron HCL 4 MG/2 ML VIAL IVPUSH ×3 (01:29→11:15)
--- NOTE | 2023-11-03 01:30 | PC.NURSE ---
pt actively vomiting into emesis bag. medication ordered/administered. effectiveness pending.
[2023-11-03] MEDS: 0.9 % Sodium Chloride 1,000 ML 999 ML IV (02:35)
[2023-11-03] MEDS: Piperacillin Sodium/Tazobactam 3.375 GM in 0.9 % Sodium Chloride 50 ML IV (02:35)
--- NOTE | 2023-11-03 02:39 | PC.NURSE ---
labs obtained/sent to lab. abx administered per provider order. pt waiting to go to CT at this time.
[2023-11-03 02:47] LABS: Lactic Acid 2.3 mmol/L (0.5-2.0)
--- NOTE | 2023-11-03 02:58 | PC.NURSE ---
critical lab value - lactic 2.[address] at this time[address] dr. henderson notified/aware
--- NOTE | 2023-11-03 03:12 | PC.NURSE ---
pt to CT at this time.
[2023-11-03] MEDS: iohexoL 350 MG/ML 100 ML INFUS..BTL 85 ML IV (03:40)
[2023-11-03 04:34] LABS: Reflex Lactate? Lactic Acid Added
[2023-11-03 05:05] LABS: ~Lactic Acid-LAB USE ONLY 0.9 mmol/L (0.5-2.0)
--- NOTE | 2023-11-03 07:58 | PM.HPGS ---
History of Present Illness History of Present Illness Date of Service: 11/11/23 <Sridhar Christian MD - Last Filed: 11/11/23 15:40> 11/03/23 <Holli Ansari MD - Last Filed: 11/03/23 10:13> Chief complaint: Small bowel obstruction with internal hernia <Sridhar Christian MD - Last Filed: 11/11/23 15:40> Narrative: She Phylicia Reilly is a 58 year old female with polymyalgia, here in the ER because of abdominal pain and vomiting for 2-3 days. She says that this started with a lot of ?burping?. She also describes some loose stools at that time. She continued to have abdominal pain and vomiting so she came to the emergency room last night. She describes the pain as mostly in the mid abdomen but is diffuse. She has a history of hysterectomy in the distant past She admits to being a smoker. She says she has passed some flatus overnight. <Sridhar Christian MD - Last Filed: 11/11/23 15:40> Review of Systems Constitutional: Constitutional: Denies chills and Denies fever(s) <Sridhar Christian MD - Last Filed: 11/11/23 15:40> Cardiovascular: Cardiovascular: Denies chest pain, Denies dyspnea and Denies dyspnea on exertion <Sridhar Christian MD - Last Filed: 11/11/23 15:40> Respiratory: Respiratory: Denies cough, Denies dyspnea and Denies dyspnea on exertion <Sridhar Christian MD - Last Filed: 11/11/23 15:40> Gastrointestinal: Gastrointestinal: Denies hematochezia and Denies change in bowel habits <Sridhar Christian MD - Last Filed: 11/11/23 15:40> Genitourinary: Genitourinary: Denies hematuria <Sridhar Christian MD - Last Filed: 11/11/23 15:40> Musculoskeletal: Musculoskeletal: Reports back pain, Reports myalgias and Reports limited range of motion <Sridhar Christian MD - Last Filed: 11/11/23 15:40> Neurologic: Denies focal weakness and Denies convulsions <Sridhar Christian MD - Last Filed: 11/11/23 15:40> Psychiatric: Psychiatric: Denies depression and Denies mood swings <Sridhar Christian MD - Last Filed: 11/11/23 15:40> PMFSH Past Medical History Medical History: Medical History Small bowel obstruction Cervical disc disease Sciatica Migraine Fibromyalgia Insomnia Anxiety Depression <Sridhar Christian MD - Last Filed: 11/11/23 15:40> Family History Family History: Family History Other Mental health disorder <Sridhar Christian MD - Last Filed: 11/11/23 15:40> Surgical History Surgical History: Surgical History History of colonoscopy <Sridhar Christian MD - Last Filed: 11/11/23 15:40> Social History Social History: Social History Household Members: None Housing: Apartment Do you presently have visiting nurse or other home services: No Alcohol intake: never Comment: rings appropriately Patient Tobacco Use Status: Former Tobacco user Quit Date: 5 years ago Tobacco use type: Cigarette e-Cigarette/Vaping Use: Never Used Second Hand Smoke Exposure: No Substance Use Type: Marijuana service: No Current occupational status: disabled Cognitive needs: No Hearing needs: No Vision needs: No <Sridhar Christian MD - Last Filed: 11/11/23 15:40> Meds Allergies/Adverse reactions: Allergies Allergy/AdvReac Type Severity Reaction Status Date / Time celecoxib [From CELEBREX] Allergy Unknown GASTRITIS Verified 11/02/23 20:34 ibuprofen [IBUPROFEN] Allergy Unknown GASTRITIS Verified 11/02/23 20:34 lactose [LACTOSE] Allergy Unknown STOMACH Verified 11/02/23 20:34 UPSET latex [LATEX] Allergy Unknown RASH Verified 11/02/23 20:34 metaxalone [From SKELAXIN] Allergy Unknown GASTRITIS Verified 11/02/23 20:34 NSAIDS (Non-Steroidal Allergy Unknown GASTRITIS Verified 11/02/23 20:34 Anti-Inflamma [NSAIDS] rofecoxib [From VIOXX] Allergy Unknown GASTRITIS Verified 11/02/23 20:34 <Sridhar Christian MD - Last Filed: 11/11/23 15:40> Home medications: Home Medications ?Medication ?Instructions ?Recorded ?Confirmed ?Last Taken ?Type acetaminophen 650 mg 650 mg PO Q12H 10/26/23 11/03/23 Unknown History tablet,extended release (Tylenol Arthritis Pain) cholecalciferol (vitamin D3) 25 25 mcg PO DAILY 10/26/23 11/03/23 Unknown History mcg (1,000 unit) capsule docusate sodium 100 mg capsule 100 mg PO DAILY 10/26/23 11/03/23 Unknown History (Colace) lisinopril 10 mg tablet 5 mg PO DAILY 11/03/23 11/03/23 Unknown History trazodone 50 mg tablet 100 mg PO BEDTIME 11/03/23 11/03/23 Unknown History <Sridhar Christian MD - Last Filed: 11/11/23 15:40> Physical Exam Vital Signs: Vital Signs: Last Vital Signs Temp 98.7 F 11/03/23 06:01 Pulse 78 11/03/23 06:01 Resp 14 11/03/23 06:01 BP 153/87 H 11/03/23 06:01 Pulse Ox 95 11/03/23 06:01 O2 Del Method Room Air 11/03/23 06:01 BMI result Body Mass Index 25.2 <Sridhar Christian MD - Last Filed: 11/11/23 15:40> Const: General: comfortable and no acute distress <Sridhar Christian MD - Last Filed: 11/11/23 15:40> Orientation/consciousness: patient oriented x3 <MD Dayana Mensah Last Filed: 11/11/23 15:40> Neck: Neck: Yes no lymphadenopathy <MD Dayana Mensah Last Filed: 11/11/23 15:40> Resp: Auscultation: clear to auscultation bilaterally <MD Dayana Mensah Last Filed: 11/11/23 15:40> Cardio: Rhythm: regular rhythm <MD Dayana Mensah Last Filed: 11/11/23 15:40> GI: Other: Diffuse tenderness with no guarding or rebound <Sridhar Christian MD - Last Filed: 11/11/23 15:40> Palpation (GI): Soft to palpation, nontender and no guarding <MD Dayana Mensah Last Filed: 11/11/23 15:40> Neuro: General: patient oriented x3 <MD Dayana Mensah Last Filed: 11/11/23 15:40> Results Results Labs: Short CBC 11/02/23 Range/Units 21:43 WBC 17.4 H (4.8-10.8) X10*3/uL Hgb 13.6 (12.0-16.0) g/dl Hct 38.8 (37.0-47.0) % Plt Count 399 (160-400) X10*3/uL BMP 11/02/23 21:43 Sodium 136 Potassium 4.1 Chloride 97 Carbon Dioxide 22 BUN 23 H Creatinine 1.04 Calcium 10.9 H D Liver Function 11/02/23 Range/Units 21:43 Total Bilirubin 0.7 (0.0-1.0) mg/dL AST 37 H (5-31) U/L ALT 26 (0-31) U/L Alkaline Phosphatase 60 (39-117) U/L Albumin 4.9 (3.5-5.0) g/dL Urine 11/02/23 Range/Units 22:34 Urine Color Yellow Urine Appearance Clear Urine pH 5.5 (5.0-9.0) Ur Specific [place] 1.025 (1.005-1.025) Urine Protein 100 (2+) H (Neg-Trace) mg/dL Urine Glucose (UA) Negative (Negative) mg/dL <Sridhar Christian MD - Last Filed: 11/11/23 15:40> Abdomen CT scan report/results: report reviewed and image reviewed <Sridhar Christian MD - Last Filed: 11/11/23 15:40> CT scan - pelvis: report reviewed and image reviewed <Sridhar Christian MD - Last Filed: 11/11/23 15:40> Additional studies: Laboratory Results WBC 17.4 X10*3/uL (4.8-10.8) H 11/02/23 21:43 RBC 4.71 X10*6/uL (4.20-5.50) 11/02/23 21:43 Hgb 13.6 g/dl (12.0-16.0) 11/02/23 21:43 Hct 38.8 % (37.0-47.0) 11/02/23 21:43 MCV 82.4 fL (80.0-98.0) 11/02/23 21:43 MCH 28.9 pg (27.0-33.0) 11/02/23 21:43 MCHC 35.1 g/dl (31.0-35.0) H 11/02/23 21:43 RDW 13.8 % (11.0-16.0) 11/02/23 21:43 Plt Count 399 X10*3/uL (160-400) 11/02/23 21:43 MPV 8.6 fL (9.4-12.3) L 11/02/23 21:43 Immature Gran % (Auto) 0.6 % (0.0-0.4) H 11/02/23 21:43 Neut % (Auto) 84.3 % (45-73) H 11/02/23 21:43 Lymph % (Auto) 8.5 % (20-40) L 11/02/23 21:43 [place] % (Auto) 6.4 % (2-11) 11/02/23 21:43 Eos % (Auto) 0.0 % (0-4) 11/02/23 21:43 Baso % (Auto) 0.2 % (0-2) 11/02/23 21:43 Lymph # (Auto) 1.5 X10*3/uL (1.2-4.9) 11/02/23 21:43 [place] # (Auto) 1.1 X10*3/uL (0.1-1.2) 11/02/23 21:43 Eos # (Auto) 0.0 X10*3/uL (0.0-0.4) 11/02/23 21:43 Baso # (Auto) 0.0 X10*3/uL (0.0-0.2) 11/02/23 21:43 Abs Immat Gran (auto) 0.10 X10*3/uL (0.00-0.03) H 11/02/23 21:43 Absolute Neuts (auto) 14.7 x10*3/uL (2.0-8.3) H 11/02/23 21:43 Absolute Nucleated RBC 0.000 X10*3/uL (0.0-0.012) 11/02/23 21:43 Nucleated RBC % (auto) 0.0 /100WBC (0.0-0.2) 11/02/23 21:43 Sodium 136 mmol/L (135-145) 11/02/23 21:43 Potassium 4.1 mmol/L (3.3-5.1) 11/02/23 21:43 Chloride 97 mmol/L (96-108) 11/02/23 21:43 Carbon Dioxide 22 mmol/L (22-29) 11/02/23 21:43 Anion Gap 21 (12-20) H 11/02/23 21:43 BUN 23 mg/dL (9-16) H 11/02/23 21:43 Creatinine 1.04 mg/dL (0.5-1.4) 11/02/23 21:43 Estim Creat Clear Calc 46.0 11/02/23 21:43 Estimated GFR 54 11/02/23 21:43 Random Glucose 171 mg/dL (60-115) H 11/02/23 21:43 Lactic Acid 2.3 mmol/L (0.5-2.0) H* 11/03/23 02:28 Lactic Acid F/U @ 2Hr 0.9 mmol/L (0.5-2.0) 11/03/23 04:50 Calcium 10.9 mg/dL (8.4-10.2) H D 11/02/23 21:43 Magnesium 2.0 mg/dL (1.6-2.6) 11/02/23 21:43 Total Bilirubin 0.7 mg/dL (0.0-1.0) 11/02/23 21:43 AST 37 U/L (5-31) H 11/02/23 21:43 ALT 26 U/L (0-31) 11/02/23 21:43 Alkaline Phosphatase 60 U/L (39-117) 11/02/23 21:43 Total Protein 8.2 g/dL (6.5-8.0) H 11/02/23 21:43 Albumin 4.9 g/dL (3.5-5.0) 11/02/23 21:43 Lipase 15 U/L (8-78) 11/02/23 21:43 Urine Color Yellow 11/02/23 22:34 Urine Appearance Clear 11/02/23 22:34 Urine pH 5.5 (5.0-9.0) 11/02/23 22:34 Ur Specific [place] 1.025 (1.005-1.025) 11/02/23 22:34 Urine Protein 100 (2+) mg/dL (Neg-Trace) H 11/02/23 22:34 Urine Glucose (UA) Negative mg/dL (Negative) 11/02/23 22:34 Urine Ketones >=160 mg/dL (Negative) 11/02/23 22:34 Urine Blood Moderate (2+) (Negative) H 11/02/23 22:34 Urine Nitrite Negative (Negative) 11/02/23 22:34 Ur Leukocyte Esterase Small (1+) (Negative) H 11/02/23 22:34 Urine RBC 6-10 /HPF (0-2) H 11/02/23 22:34 Urine WBC 6-10 /HPF (0-5) H 11/02/23 22:34 Ur Squamous Epith Cells 6-10 /HPF (0-2) 11/02/23 22:34 Urine Bacteria Trace (None Seen) 11/02/23 22:34 Hyaline Casts 0-2 /LPF (0-2) 11/02/23 22:34 Urine Opiates Screen Not Detected (Not Detect) 11/02/23 22:34 Ur Buprenorphine Scrn Not Detected ng/mL (Not Detect) 11/02/23 22:34 Ur Oxycodone Screen Not Detected ng/mL (Not Detect) 11/02/23 22:34 Urine Methadone Screen Not Detected ng/mL (Not Detect) 11/02/23 22:34 Urine Fentanyl Screen Not Detected (Not Detect) 11/02/23 22:34 Ur Barbiturates Screen Not Detected (Not Detect) 11/02/23 22:34 Ur Phencyclidine Scrn Not Detected (Not Detect) 11/02/23 22:34 Ur Amphetamines Screen Not Detected (Not Detect) 11/02/23 22:34 U Benzodiazepines Scrn Not Detected (Not Detect) 11/02/23 22:34 Urine Cocaine Screen Not Detected (Not Detect) 11/02/23 22:34 U Marijuana (THC) Screen POSITIVE (Not Detect) H 11/02/23 22:34 Influenza Type A (PCR) NEGATIVE (Negative) 11/02/23 21:43 Influenza Type B (PCR) NEGATIVE (Negative) 11/02/23 21:43 RSV RNA Qual (PCR) NEGATIVE (Negative) 11/02/23 21:43 SARS-CoV-2 RNA (RT-PCR) NEGATIVE (Negative) 11/02/23 21:43 Impressions Abdomen/Pelvis CT 11/03/23 03:25 IMPRESSION: 1. Swirling appearance of the mesentery and associated vessels along with collapsed small bowel loops in the right abdomen. There is also suspected to be a collapsed segment of colon coursing through this region. Overall appearance is suspicious for volvulus or internal hernia resulting in developing bowel obstruction. 2. 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 This critical result was discussed with Dr. Gerard on 11/03/2023 4:44 AM, and it was ascertained that the content and urgency of the report was understood at the time of direct communication. <Sridhar Christian MD - Last Filed: 11/11/23 15:40> Assessment and Plan (1) Small bowel obstruction: Status: Acute <Sridhar Christian MD - Last Filed: 11/11/23 15:40> 58-year-old female with abdominal pain and vomiting, with a CT scan consistent with small-bowel obstruction likely from an internal hernia. There was note of swirling of the mesentery in the right abdomen on the involved small bowel loops. This is probably because of postop adhesions from her previous hysterectomy. Initial lactate in the ER was mildly elevated 2.3 but this was normal at 0.9 on repeat after IV resuscitation. I therefore explained to her that it will be best to proceed with laparotomy with possible small bowel resection. I explained the technique of this procedure. I reviewed the risks including but not limited to bleeding, infections, bowel injury, anastomotic leak, blood clots, pneumonia, as well as the benefits and alternatives. She says she understands and she agrees to proceed. She understands what to expect postoperatively. <Sridhar Christian MD - Last Filed: 11/11/23 15:40> Quality Stroke Does the patient have a stroke diagnosis?: No <Sridhar Christian MD - Last Filed: 11/11/23 15:40> VTE Prior VTE?: No <Sridhar Christian MD - Last Filed: 11/11/23 15:40> VTE Risk Level:: Medical - moderate - high <Sridhar Christian MD - Last Filed: 11/11/23 15:40> VTE Device Contraindication: N/A - Device Ordered <Sridhar Christian MD - Last Filed: 11/11/23 15:40> VTE Drug Contraindication: N/A - Med Ordered <Sridhar Christian MD - Last Filed: 11/11/23 15:40> Procedures Date of Service Date of Service: 11/11/23 <Sridhar Christian MD - Last Filed: 11/11/23 15:40> 11/03/23 <Holli Ansari MD - Last Filed: 11/03/23 10:13>
[2023-11-03] MEDS: Lactated Ringers 1,000 ML 100 ML IVCONT ×2 (08:22→16:06)
--- NOTE | 2023-11-03 08:43 | PHA.MEDREC ---
Pharmacy Consult ? Medication Reconciliation Pharmacy has completed the medication reconciliation.Spoke with patient. Patient states she has recently been told by her provider to only take 5 mg of lisinopril.
--- NOTE | 2023-11-03 08:51 | PC.NURSE ---
Pt alert and oriented, breathing even and unlabored, skin dry. Pt noted to be burping, nauseous. Medicated per MAR for nausea. Pt reports mild lower abd pain/discomfort.
--- NOTE | 2023-11-03 08:52 | PC.NURSE ---
Last food intake 11/02/23 in the morning.
--- NOTE | 2023-11-03 10:13 | P.CONAN_ITS ---
[facility] Active Problems Active Problems: All Active Problems Small bowel obstruction (Acute) Bowel obstruction (Acute) Low back pain (Acute) Status post hosterectomy (Acute) Post-menopausal (Acute) Screening for osteoporosis (Acute) Bunion (Acute) Cervicalgia (Acute) Polyarthralgia (Acute) Rectocele (Acute) Fibromyalgia (Acute) Hand pain (Acute) Right hip pain (Acute) Foot pain (Acute) Laboratory exam ordered as part of routine general medical examination (Acute) Weight gain (Acute) Left shoulder pain (Acute) Chronic low back pain (Acute) Hypertension (Acute) Anxiety and depression (Acute) Skin lesion of back (Acute) Sleep-wake 24 hour cycle disruption (Acute) Mid back pain, chronic (Acute) UTI (urinary tract infection) (Acute) Dysuria (Acute) Encounter for screening mammogram for malignant neoplasm of breast (Acute) Hypertension goal BP (blood pressure) < 130/80 (Acute) Insomnia (Acute) Due for screening (Acute) Mammogram not needed (Acute) Elevated BP without diagnosis of hypertension (Acute) Migraine (Acute) Cervical disc disease (Acute) Depression (Acute) Anxiety (Acute) Normal physical exam (Acute) Past Medical History Medical History Small bowel obstruction Cervical disc disease Sciatica Migraine Fibromyalgia Insomnia Anxiety Depression Family History Family History Other Mental health disorder Family history of problems with anesthesia: No Surgical History Surgical History History of colonoscopy History of Problems with Anesthesia: No Social History Social History Housing: Apartment Alcohol intake: never Patient Tobacco Use Status: Former Tobacco user Tobacco use type: Cigarette Smoked in Last 30 Days: No e-Cigarette/Vaping Use: Never Used Second Hand Smoke Exposure: No Use of substances other than those prescribed or required for medical reasons: No Substance Use Type: Marijuana Are you DNR?: No Advance Directives: No Advance Directives Information Provided: Yes Advance Directives on File: No Do you have a plan to hurt others: No Plan service: No Current occupational status: disabled Cognitive needs: No Hearing needs: No Vision needs: No Meds Allergies Allergy/AdvReac Type Severity Reaction Status Date / Time celecoxib [From CELEBREX] Allergy Unknown GASTRITIS Verified 11/02/23 20:34 ibuprofen [IBUPROFEN] Allergy Unknown GASTRITIS Verified 11/02/23 20:34 lactose [LACTOSE] Allergy Unknown STOMACH Verified 11/02/23 20:34 UPSET latex [LATEX] Allergy Unknown RASH Verified 11/02/23 20:34 metaxalone [From SKELAXIN] Allergy Unknown GASTRITIS Verified 11/02/23 20:34 NSAIDS (Non-Steroidal Allergy Unknown GASTRITIS Verified 11/02/23 20:34 Anti-Inflamma [NSAIDS] rofecoxib [From VIOXX] Allergy Unknown GASTRITIS Verified 11/02/23 20:34 Active Medications: Current Medications Heparin Sodium (Porcine) (Heparin Sodium,Porcine 5,000 Unit/Ml Vial) 5,000 unit SUBCUT Q12H [facility] Lactated Ringer's (Lr) 1,000 mls @ 100 mls/hr IVCONT .Q10H [facility] Last Admin: 11/03/23 08:22 Dose: 100 mls/hr Ondansetron HCl (Ondansetron Hcl 4 Mg/2 Ml Vial) 4 mg IVPUSH Q8H PRN PRN Reason: Nausea Last Admin: 11/03/23 08:38 Dose: 4 mg Sodium Chloride (0.9 % Sodium Chloride Flush 3 Ml Syringe) 3 ml IVFLUSH QSHIFT [facility] Home Medications ?Medication ?Instructions ?Recorded ?Confirmed ?Last Taken ?Type acetaminophen 650 mg 650 mg PO Q12H 10/26/23 11/03/23 Unknown History tablet,extended release (Tylenol Arthritis Pain) cholecalciferol (vitamin D3) 25 25 mcg PO DAILY 10/26/23 11/03/23 Unknown History mcg (1,000 unit) capsule docusate sodium 100 mg capsule 100 mg PO DAILY 10/26/23 11/03/23 Unknown History (Colace) lisinopril 10 mg tablet 5 mg PO DAILY 11/03/23 11/03/23 Unknown History trazodone 50 mg tablet 100 mg PO BEDTIME 11/03/23 11/03/23 Unknown History Exam Height,Weight and Vital Signs: Height 5 ft Weight 58.513 kg Last Vital Signs Temp 98.7 F 11/03/23 06:01 Pulse 78 11/03/23 06:01 Resp 14 11/03/23 06:01 BP 153/87 H 11/03/23 06:01 Pulse Ox 95 11/03/23 06:01 O2 Del Method Room Air 11/03/23 06:01 Pertinent Lab Results Pertinent Lab Results: Laboratory Tests 11/02/23 11/02/23 11/03/23 21:43 22:34 02:28 WBC 17.4 H RBC 4.71 Hgb 13.6 Hct 38.8 MCV 82.4 MCH 28.9 MCHC 35.1 H RDW 13.8 Plt Count 399 MPV 8.6 L Immature Gran % (Auto) 0.6 H Neut % (Auto) 84.3 H Lymph % (Auto) 8.5 L [place] % (Auto) 6.4 Eos % (Auto) 0.0 Baso % (Auto) 0.2 Lymph # (Auto) 1.5 [place] # (Auto) 1.1 Eos # (Auto) 0.0 Baso # (Auto) 0.0 Abs Immat Gran (auto) 0.10 H Absolute Neuts (auto) 14.7 H Absolute Nucleated RBC 0.000 Nucleated RBC % (auto) 0.0 Sodium 136 Potassium 4.1 Chloride 97 Carbon Dioxide 22 Anion Gap 21 H BUN 23 H Creatinine 1.04 Estim Creat Clear Calc 46.0 Estimated GFR 54 Random Glucose 171 H Lactic Acid 2.3 H* Lactic Acid F/U @ 2Hr Calcium 10.9 H D Magnesium 2.0 Total Bilirubin 0.7 AST 37 H ALT 26 Alkaline Phosphatase 60 Total Protein 8.2 H Albumin 4.9 Lipase 15 Urine Color Yellow Urine Appearance Clear Urine pH 5.5 Ur Specific [place] 1.025 Urine Protein 100 (2+) H Urine Glucose (UA) Negative Urine Ketones >=160 Urine Blood Moderate (2+) H Urine Nitrite Negative Ur Leukocyte Esterase Small (1+) H Urine RBC 6-10 H Urine WBC 6-10 H Ur Squamous Epith Cells 6-10 Urine Bacteria Trace Hyaline Casts 0-2 Urine Opiates Screen Not Detected Ur Buprenorphine Scrn Not Detected Ur Oxycodone Screen Not Detected Urine Methadone Screen Not Detected Urine Fentanyl Screen Not Detected Ur Barbiturates Screen Not Detected Ur Phencyclidine Scrn Not Detected Ur Amphetamines Screen Not Detected U Benzodiazepines Scrn Not Detected Urine Cocaine Screen Not Detected U Marijuana (THC) Screen POSITIVE H Influenza Type A (PCR) NEGATIVE Influenza Type B (PCR) NEGATIVE RSV RNA Qual (PCR) NEGATIVE SARS-CoV-2 RNA (RT-PCR) NEGATIVE Blood Type Antibody Screen 11/03/23 11/03/23 04:50 09:21 WBC RBC Hgb Hct MCV MCH MCHC RDW Plt Count MPV Immature Gran % (Auto) Neut % (Auto) Lymph % (Auto) [place] % (Auto) Eos % (Auto) Baso % (Auto) Lymph # (Auto) [place] # (Auto) Eos # (Auto) Baso # (Auto) Abs Immat Gran (auto) Absolute Neuts (auto) Absolute Nucleated RBC Nucleated RBC % (auto) Sodium Potassium Chloride Carbon Dioxide Anion Gap BUN Creatinine Estim Creat Clear Calc Estimated GFR Random Glucose Lactic Acid Lactic Acid F/U @ 2Hr 0.9 Calcium Magnesium Total Bilirubin AST ALT Alkaline Phosphatase Total Protein Albumin Lipase Urine Color Urine Appearance Urine pH Ur Specific [place] Urine Protein Urine Glucose (UA) Urine Ketones Urine Blood Urine Nitrite Ur Leukocyte Esterase Urine RBC Urine WBC Ur Squamous Epith Cells Urine Bacteria Hyaline Casts Urine Opiates Screen Ur Buprenorphine Scrn Ur Oxycodone Screen Urine Methadone Screen Urine Fentanyl Screen Ur Barbiturates Screen Ur Phencyclidine Scrn Ur Amphetamines Screen U Benzodiazepines Scrn Urine Cocaine Screen U Marijuana (THC) Screen Influenza Type A (PCR) Influenza Type B (PCR) RSV RNA Qual (PCR) SARS-CoV-2 RNA (RT-PCR) Blood Type A Positive Antibody Screen NEGATIVE Airway Mallampati Class: III (NGT IN PLACE; globally poor dentition) TM Dist: >3cm Neck ROM: Limited Loose/Missing/Broken Teeth: Yes, Upper and Lower Heart: RRR Lungs: CTA Assessment and Plan Assessment Anesthesia Assessment: Anesthesia Plan Discussed and Chart Reviewed Final Anesthetic Review Family History of Problems with Anesthesia: No History of Problems with Anesthesia: No ASA Class: II (Emergency ) Patient Risk: Intermediate Procedure Risk: Intermediate Anesthetic Plan Anesthetic Plan: GA Disposition: Standard PACU
[2023-11-03] MEDS: Promethazine HCL 25 MG/ML VIAL 6.25 MG IM (12:54)
--- NOTE | 2023-11-03 14:25 | W.PM.OPN ---
Operative Note Operative Note Date of Service: 11/03/23 Narrative: Preop diagnosis: Small bowel obstruction, internal hernia Postop diagnosis: Small bowel obstruction, incisional hernia with extensive adhesions Procedure: Laparotomy, extensive lysis of adhesions Surgeon: Sridhar Christian MD botany laboratory assistant: GREY Mckeon The patient is a 58-year-old female admitted this morning because of abdominal pain, nausea and vomiting. Her CAT scan was consistent with small-bowel obstruction with swirling of the mesentery suggestive of internal hernia. She understood the technique of laparotomy. She was aware of the risks, benefits and alternatives. She was brought to the operating room. She was placed supine under general anesthesia via endotracheal tube. An NG tube had been placed earlier. A Tellez catheter was inserted The abdomen was prepped and draped in the usual sterile fashion. A surgical time-out was done. The patient received cefazolin 2 g IV preoperatively I made a laparotomy incision in the midline using blade 15 and this carried down through the full-thickness of the skin subcutaneous fat down to the fascia. The fascia was incised. The peritoneum was entered. Immediately, we noticed some dilated small bowel loops. We lifted up the abdominal wall incision retractors. There was some significant twisting of some bowel loops which we did and we noticed that there were bands tethering this to the pelvis. I was able to identify the cecum in the right colon. I traced the terminal ileum proximally we noted that part of the ileum was markedly adherent to the pelvis towards the abdominal wall. We had to do careful lysis of adhesions for this. Her more small bowel loops tethered to the pelvic wall as well separate from that earlier segment. We had to do an extensive lysis of adhesions to separate all the small bowel loops from the pelvis. We also had to do lysis of interloop adhesions We were able to eventually free up the entire small bowel loops from the pelvis. I was able to visualize the sigmoid and this was all the adhesions to the pelvic wall so we had to do some lysis of adhesions of this as well. We are able to visualize the sigmoid all the way to the transverse colon in the right colon. There were no other lesions or any pathology I traced the terminal ileum from the ileocecal valve all the way to the of Treitz and there was no evidence of any bowel injury or any further adhesions I irrigated. I controlled oozing areas on the previous sites of adhesions with 3-0 Polysorb ties I closed the fascia and the muscle with Maxon in running stitch. Skin closure was achieved with skin nargis The area was infiltrated with Marcaine 0.5% for postop analgesia. The procedure was then completed The patient tolerated procedure well. There were no immediate complications. Initial and final counts of sponges and instruments were correct. Estimated blood loss was was about 75 cc The patient was extubated without difficulty and transferred to the recovery room with stable vital signs.
[2023-11-03] MEDS: HYDROmorphone HCl 0.5 MG/0.5 ML SYRINGE 0.25 MG IVPUSH ×2 (14:55→15:18)
[2023-11-03] MEDS: 0.9 % Sodium Chloride Flush 3 ML SYRINGE IVFLUSH (16:04)
[2023-11-03] MEDS: Acetaminophen 1,000 MG/100 ML PIGGYBACK 400 MG IV ×2 (16:29→22:30)
--- NOTE | 2023-11-03 16:42 | PM.EVENT ---
Event Note Date of Service: 11/04/23 Event Note: Seen postop Status post ex lap, extensive lysis of adhesions for obstruction Says she is ?okay Sore on incision Stable vital signs Good urine output Pain management Has MEDICAL COLLECTIONS Hospitalist consult Significant other Marco updated by phone Time Spent With Patient Time: Total time managing care of this patient today ____ minutes.
--- NOTE | 2023-11-03 17:27 | PC.NURSE ---
Patient denies any allergy to Tylenol
--- NOTE | 2023-11-03 18:02 | P.CONHOSP_ITS ---
History of Present Illness Data of Consult Service Date: 11/03/23 Primary Care Provider: Kian Schultz MD HPI 58-year-old female patient with past medical history significant for fibromyalgia, history of anxiety, depression, hypertension history of migraine, sciatica, insomnia admitted to general surgery due to 2-3 days of abdominal pain associated with nausea vomiting and loose stools since symptoms persisted patient came to the emergency room, CT abdomen and pelvis showed volvulus or internal hernia resulting in developing bowel obstruction, patient admitted under General surgery and underwent laparotomy with extensive lysis of adhesions, postprocedure patient is complaining of abdominal pain worse with movement ,she denies associated nausea, vomiting, no fevers, no chills, no headache, no lightheadedness or dizziness, patient is NPO, NG tube in place with no significant drainage. Review of Systems 2 Review of Systems: General no headache no dizziness no fever chills. CVS no chest pain, no palpitation. Respiratory no cough no sob Gastrointestinal no nausea no vomiting, abdominal pain at site of incision Skin no rash Musculoskeletal no pain no urgency, no frequency PMFSH Medical History Small bowel obstruction Cervical disc disease Sciatica Migraine Fibromyalgia Insomnia Anxiety Depression Family History Other Mental health disorder Surgical History History of colonoscopy Social History Household Members: None Housing: Apartment Do you presently have visiting nurse or other home services: No Alcohol intake: never Patient Tobacco Use Status: Former Tobacco user Quit Date: 5 years ago Tobacco use type: Cigarette Smoked in Last 30 Days: No e-Cigarette/Vaping Use: Never Used Second Hand Smoke Exposure: No Use of substances other than those prescribed or required for medical reasons: No Substance Use Type: Marijuana Have you been hit, kicked, punched, or otherwise hurt by someone within the past year? If so, by whom?: No Do you feel safe in your current relationship?: Yes Is there a partner from a previous relationship who is making you feel unsafe now?: No Are you made to feel afraid or neglected: No Congregational Healthcare Practices: Hoahaoism Are you DNR?: No Advance Directives: No Advance Directives Information Provided: Yes Advance Directives on File: No Do you have a plan to hurt others: No Plan Recently lost weight without trying: No Nutrition Risks: No Nutritional Risk Patient : No : No Poor oral hygiene: No service: No Current occupational status: disabled Cognitive needs: No Hearing needs: No Vision needs: No Meds Allergies Allergy/AdvReac Type Severity Reaction Status Date / Time celecoxib [From CELEBREX] Allergy Unknown GASTRITIS Verified 11/02/23 20:34 ibuprofen [IBUPROFEN] Allergy Unknown GASTRITIS Verified 11/02/23 20:34 lactose [LACTOSE] Allergy Unknown STOMACH Verified 11/02/23 20:34 UPSET latex [LATEX] Allergy Unknown RASH Verified 11/02/23 20:34 metaxalone [From SKELAXIN] Allergy Unknown GASTRITIS Verified 11/02/23 20:34 NSAIDS (Non-Steroidal Allergy Unknown GASTRITIS Verified 11/02/23 20:34 Anti-Inflamma [NSAIDS] rofecoxib [From VIOXX] Allergy Unknown GASTRITIS Verified 11/02/23 20:34 Active Medications: Current Medications Heparin Sodium (Porcine) (Heparin Sodium,Porcine 5,000 Unit/Ml Vial) 5,000 unit SUBCUT Q12H [facility] Lactated Ringer's (Lr) 1,000 mls @ 100 mls/hr IVCONT .Q10H [facility] Last Admin: 11/03/23 16:06 Dose: 100 mls/hr Morphine Sulfate (Morphine Sulfate/Ns) 100 mg in 100 mls @ 0 mls/hr IVCONT .Q0M NICK; Protocol Acetaminophen (Ofirmev) 1,000 mg in 100 mls @ 400 mls/hr IV Q6H [facility], [facility]1983 Last Infusion: 11/03/23 16:49 Dose: Infused Naloxone HCl (Naloxone Hcl 0.4 Mg/Ml Vial) 0.2 mg IVPUSH Q2M PRN PRN Reason: Excessive sedation or RR < 8 Ondansetron HCl (Ondansetron Hcl 4 Mg/2 Ml Vial) 4 mg IVPUSH Q8H PRN PRN Reason: Nausea Last Admin: 11/03/23 08:38 Dose: 4 mg Sodium Chloride (0.9 % Sodium Chloride Flush 3 Ml Syringe) 3 ml IVFLUSH QSHIFT [facility] Last Admin: 11/03/23 16:04 Dose: 3 ml Home Medications ?Medication ?Instructions ?Recorded ?Confirmed ?Last Taken ?Type acetaminophen 650 mg 650 mg PO Q12H 10/26/23 11/03/23 Unknown History tablet,extended release (Tylenol Arthritis Pain) cholecalciferol (vitamin D3) 25 25 mcg PO DAILY 10/26/23 11/03/23 Unknown History mcg (1,000 unit) capsule docusate sodium 100 mg capsule 100 mg PO DAILY 10/26/23 11/03/23 Unknown History (Colace) lisinopril 10 mg tablet 5 mg PO DAILY 11/03/23 11/03/23 Unknown History trazodone 50 mg tablet 100 mg PO BEDTIME 11/03/23 11/03/23 Unknown History Physical Exam 2 Vital Signs and Narrative: Vital Signs: Last Vital Signs Temp 97.4 F 11/03/23 15:43 Pulse 67 11/03/23 15:43 Resp 20 11/03/23 15:43 BP 167/91 H 11/03/23 15:43 Pulse Ox 96 11/03/23 15:43 O2 Del Method Room Air 11/03/23 15:43 O2 Flow Rate 2 11/03/23 15:25 BMI result Body Mass Index 25.2 Const: Other: General awake alert x3 , in no acute distress. Anicteric sclera Neck supple no JVD. CVS regular rate rhythm, Respiratory lungs clear to auscultation, no respiratory distress, no wheeze, no rhonchi. Gastrointestinal abdomen soft, tender at site of incision, dressing in place , bowel sounds audible, no guarding , no rigidity. Extremities no edema. Neuro non focal Skin no rash Psych appropriate affect. Results Labs 11/02/23 21:43 11/02/23 21:43 Labs: Laboratory Results - last 24 hr 11/02/23 11/02/23 11/03/23 21:43 22:34 02:28 MCV 82.4 MCH 28.9 MCHC 35.1 H RDW 13.8 Plt Count 399 MPV 8.6 L Immature Gran % (Auto) 0.6 H Neut % (Auto) 84.3 H Lymph % (Auto) 8.5 L [place] % (Auto) 6.4 Eos % (Auto) 0.0 Baso % (Auto) 0.2 Lymph # (Auto) 1.5 [place] # (Auto) 1.1 Eos # (Auto) 0.0 Baso # (Auto) 0.0 Abs Immat Gran (auto) 0.10 H Absolute Neuts (auto) 14.7 H Absolute Nucleated RBC 0.000 Nucleated RBC % (auto) 0.0 Anion Gap 21 H Estim Creat Clear Calc 46.0 Estimated GFR 54 Random Glucose 171 H Lactic Acid 2.3 H* Lactic Acid F/U @ 2Hr Calcium 10.9 H D Magnesium 2.0 Total Bilirubin 0.7 AST 37 H ALT 26 Alkaline Phosphatase 60 Total Protein 8.2 H Albumin 4.9 Lipase 15 Urine Color Yellow Urine Appearance Clear Urine pH 5.5 Ur Specific [place] 1.025 Urine Protein 100 (2+) H Urine Glucose (UA) Negative Urine Ketones >=160 Urine Blood Moderate (2+) H Urine Nitrite Negative Ur Leukocyte Esterase Small (1+) H Urine RBC 6-10 H Urine WBC 6-10 H Ur Squamous Epith Cells 6-10 Urine Bacteria Trace Hyaline Casts 0-2 Urine Opiates Screen Not Detected Ur Buprenorphine Scrn Not Detected Ur Oxycodone Screen Not Detected Urine Methadone Screen Not Detected Urine Fentanyl Screen Not Detected Ur Barbiturates Screen Not Detected Ur Phencyclidine Scrn Not Detected Ur Amphetamines Screen Not Detected U Benzodiazepines Scrn Not Detected Urine Cocaine Screen Not Detected U Marijuana (THC) Screen POSITIVE H Influenza Type A (PCR) NEGATIVE Influenza Type B (PCR) NEGATIVE RSV RNA Qual (PCR) NEGATIVE SARS-CoV-2 RNA (RT-PCR) NEGATIVE Blood Type Antibody Screen 11/03/23 11/03/23 04:50 09:21 MCV MCH MCHC RDW Plt Count MPV Immature Gran % (Auto) Neut % (Auto) Lymph % (Auto) [place] % (Auto) Eos % (Auto) Baso % (Auto) Lymph # (Auto) [place] # (Auto) Eos # (Auto) Baso # (Auto) Abs Immat Gran (auto) Absolute Neuts (auto) Absolute Nucleated RBC Nucleated RBC % (auto) Anion Gap Estim Creat Clear Calc Estimated GFR Random Glucose Lactic Acid Lactic Acid F/U @ 2Hr 0.9 Calcium Magnesium Total Bilirubin AST ALT Alkaline Phosphatase Total Protein Albumin Lipase Urine Color Urine Appearance Urine pH Ur Specific [place] Urine Protein Urine Glucose (UA) Urine Ketones Urine Blood Urine Nitrite Ur Leukocyte Esterase Urine RBC Urine WBC Ur Squamous Epith Cells Urine Bacteria Hyaline Casts Urine Opiates Screen Ur Buprenorphine Scrn Ur Oxycodone Screen Urine Methadone Screen Urine Fentanyl Screen Ur Barbiturates Screen Ur Phencyclidine Scrn Ur Amphetamines Screen U Benzodiazepines Scrn Urine Cocaine Screen U Marijuana (THC) Screen Influenza Type A (PCR) Influenza Type B (PCR) RSV RNA Qual (PCR) SARS-CoV-2 RNA (RT-PCR) Blood Type A Positive Antibody Screen NEGATIVE Imaging Radiologist's Impressions: Impressions Abdomen/Pelvis CT 11/03/23 03:25 IMPRESSION: 1. Swirling appearance of the mesentery and associated vessels along with collapsed small bowel loops in the right abdomen. There is also suspected to be a collapsed segment of colon coursing through this region. Overall appearance is suspicious for volvulus or internal hernia resulting in developing bowel obstruction. 2. 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 This critical result was discussed with Dr. Gearrd on 11/03/2023 4:44 AM, and it was ascertained that the content and urgency of the report was understood at the time of direct communication. Assessment and Plan (1) Small bowel obstruction: Status: Acute (2) Hypertension: Status: Acute Plan 58-year-old female patient presented with abdominal pain and diagnosed to have small bowel obstruction. Small-bowel obstruction status post laparotomy and lysis of addition postoperative day 0 Continue NPO/IV fluids/[employer] Morphine as per General surgery Will add Pepcid for GI prophylaxis/lozenges for throat irritation. Hypertension elevated blood pressure likely due to pain, monitor BP closely and use IV hydralazine 5 mg as needed if systolic BP greater than 180. on lisinopril 5 mg daily, currently on hold. Fibromyalgia on Cymbalta and cyclobenzaprine 10 mg at bedtime, all by mouth meds on hold since patient NPO History of anxiety depression , no acute exacerbation noted, home medications trazodone, hydroxyzine on hold since NPO follow clinical course DVT prophylaxis on heparin Full code Thank you for allowing us to participate in the care of this patient, will cont. to follow with you.
[2023-11-03] MEDS: Morphine Sulfate/NS 100 MG/100 ML PLAST..BAG IVCONT (18:06)
--- NOTE | 2023-11-03 18:13 | PC.NURSE ---
[employer] Morphine started as ordered,unable to document on AUG ,system will not allow to document 0 for basal rate,[employer] set for patient can have 1mg bolus q 10 min,6 boluses max in 1 hour,witnessed by Loly job training supervisor,paper documentation in patient room at present,will be filed in a chart when completed
[2023-11-03] MEDS: Throat Lozenge, Medicated LOZENGE 1 LOZENGE MUCOUS MEM (18:30)
--- NOTE | 2023-11-03 22:38 | PC.NURSE ---
BP elevated,patient c/o pain,educated on use of [employer],encouraged patient to use it more often
[2023-11-04] VITALS (16 sets, daily range): BP systolic 130–162; BP diastolic 78–100; PULSE 62–99; RESP 16–20; TEMP 36.2–36.8; O2SAT 92–96
[2023-11-04] MEDS: Lactated Ringers 1,000 ML 100 ML IVCONT ×3 (02:04→23:59)
[2023-11-04] MEDS: Acetaminophen 1,000 MG/100 ML PIGGYBACK 400 MG IV ×4 (03:51→21:45)
[2023-11-04 05:38] LABS: Basophils Percent Auto 0.2 % (0-2); Hematocrit 39.7 % (37.0-47.0); Hemoglobin 13.3 g/dl (12.0-16.0); Imm Gran Pct Auto 0.6 % (0.0-0.4); Lymphocytes Absolute Auto 1.9 X10*3/uL (1.2-4.9); Lymphocytes Percent Auto 11.5 % (20-40); MANUAL DIFF FLAG SCAN; Mean Corpuscular HGB Conc 33.5 g/dl (31.0-35.0); Mean Corpuscular Hemoglobin 28.7 pg (27.0-33.0); Mean Corpuscular Volume 85.6 fL (80.0-98.0); Mean Platelet Volume 8.8 fL (9.4-12.3); Monocytes Absolute Auto 2.1 X10*3/uL (0.1-1.2); Monocytes Percent Auto 12.7 % (2-11); Neutrophils Absolute Auto 12.4 x10*3/uL (2.0-8.3); Platelet Count 350 X10*3/uL (160-400); Red Blood Count 4.64 X10*6/uL (4.20-5.50); Red Cell Distribution Width 14.3 % (11.0-16.0); SCAN SMEAR FLAG 1; White Blood Count 16.5 X10*3/uL (4.8-10.8)
[2023-11-04 05:59] LABS: Anion Gap 15 (12-20); Blood Urea Nitrogen 16 mg/dL (9-16); Calcium 9.3 mg/dL (8.4-10.2); Carbon Dioxide 27 mmol/L (22-29); Chloride 100 mmol/L (96-108); Estimated Glomerular Filt Rate > 60; Glucose Fasting 110 mg/dL (60-99); Sodium 138 mmol/L (135-145)
[2023-11-04 06:14] LABS: SLIDE REVIEW VERIFIED
--- NOTE | 2023-11-04 07:40 | P.PNGS_ITS ---
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 Wants NGT out. Passing flatus. Has not been OOB. <Annette Mckeon PA-C - Last Filed: 11/04/23 07:43> Physical Exam 2 Vital Signs: Vital Signs: Last Vital Signs Temp 97.4 F 11/04/23 06:00 Pulse 90 11/04/23 06:00 Resp 18 11/04/23 03:53 BP 141/95 H 11/04/23 06:00 Pulse Ox 93 11/04/23 06:00 O2 Del Method Room Air 11/04/23 06:00 O2 Flow Rate 2 11/03/23 20:40 BMI result Body Mass Index 25.2 <Annette Mckeon PA-C - Last Filed: 11/04/23 07:43> Const: General: comfortable, no acute distress and alert <Annette Mckeon PA-C - Last Filed: 11/04/23 07:43> Orientation/consciousness: patient oriented x3 <JESSE Rosa Last Filed: 11/04/23 07:43> Resp: Effort & Inspection: normal respiratory effort <Annette Mckeon PA-C - Last Filed: 11/04/23 07:43> GI: Inspection: Yes distended (mild) and Yes incision (dressing dry ) < Annette Mckeon PA-C - Last Filed: 11/04/23 07:43> Palpation (GI): Soft to palpation, Tenderness to palpation present (GI) (incisional) and no guarding <JESSE Rosa Last Filed: 11/04/23 07:43> Skin: General skin exam: no rashes or lesions noted <JESSE Rosa Last Filed: 11/04/23 07:43> Neuro: General: patient oriented x3 and moves all extremities <JESSE Rosa Last Filed: 11/04/23 07:43> Objective Data Active Medications Benzocaine (Throat Lozenge, Medicated Lozenge) 1 lozenge MUCOUS MEM Q2H PRN PRN Reason: Sore Throat Last Admin: 11/03/23 18:30 Dose: 1 lozenge Documented By: NHAN Famotidine (Famotidine/Pf 20 Mg/2 Ml Vial) 20 mg IVPUSH DAILY [facility] Heparin Sodium (Porcine) (Heparin Sodium,Porcine 5,000 Unit/Ml Vial) 5,000 unit SUBCUT Q12H [facility] Hydralazine HCl (Hydralazine Hcl 20 Mg/Ml Vial) 5 mg IVPUSH Q8H PRN; Protocol PRN Reason: for SBP >180 Lactated Ringer's (Lr) 1,000 mls @ 100 mls/hr IVCONT .Q10H [facility] Last Admin: 11/04/23 02:04 Dose: 100 mls/hr Documented By: HILL Morphine Sulfate (Morphine Sulfate/Ns) 100 mg in 100 mls @ 0 mls/hr IVCONT .Q0M [facility]; Protocol Last Admin: 11/03/23 18:06 Dose: 0.01 mg/hr, 0.01 mls/hr Documented By: NHAN Acetaminophen (Ofirmev) 1,000 mg in 100 mls @ 400 mls/hr IV Q6H [facility] Last Infusion: 11/04/23 04:09 Dose: Infused Documented By: HILL Lorazepam (Lorazepam 2 Mg/Ml Vial) 0.5 mg IVPUSH Q8H PRN PRN Reason: anxiety Naloxone HCl (Naloxone Hcl 0.4 Mg/Ml Vial) 0.2 mg IVPUSH Q2M PRN PRN Reason: Excessive sedation or RR < 8 Ondansetron HCl (Ondansetron Hcl 4 Mg/2 Ml Vial) 4 mg IVPUSH Q8H PRN PRN Reason: Nausea Last Admin: 11/03/23 08:38 Dose: 4 mg Documented By: LORNA Sodium Chloride (0.9 % Sodium Chloride Flush 3 Ml Syringe) 3 ml IVFLUSH QSHIFT [facility] Last Admin: 11/04/23 07:40 Dose: Not Given Documented By: SAMRA Non-Admin Reason: IV Running <Annette Mckeon PA-C - Last Filed: 11/04/23 07:43> Labs CBC & Chem 7: 11/04/23 05:24 11/04/23 05:24 <Annette Mckeon PA-C - Last Filed: 11/04/23 07:43> Labs: Laboratory Results - last 24 hr 11/03/23 11/04/23 09:21 05:24 MCV 85.6 MCH 28.7 MCHC 33.5 RDW 14.3 Plt Count 350 MPV 8.8 L Immature Gran % (Auto) 0.6 H Neut % (Auto) 75.0 H Lymph % (Auto) 11.5 L [place] % (Auto) 12.7 H Eos % (Auto) 0.0 Baso % (Auto) 0.2 Lymph # (Auto) 1.9 [place] # (Auto) 2.1 H Eos # (Auto) 0.0 Baso # (Auto) 0.0 Abs Immat Gran (auto) 0.10 H Absolute Neuts (auto) 12.4 H Absolute Nucleated RBC 0.000 Nucleated RBC % (auto) 0.0 Smear Tech's Comments VERIFIED Anion Gap 15 Estim Creat Clear Calc 57.0 Estimated GFR > 60 Fasting Glucose 110 H Calcium 9.3 D Blood Type A Positive Antibody Screen NEGATIVE <Annette Mckeon PA-C - Last Filed: 11/04/23 07:43> Microbiology Microbiology Results: Microbiology 11/03/23 02:33 Blood Culture - Preliminary Blood - Venous No growth after 24 hours. 11/03/23 02:28 Blood Culture - Preliminary Blood - Venous No growth after 24 hours. 11/02/23 22:59 Urine Culture - Preliminary Urine clean catch - Urine charles top Culture in progress. <Annette Mckeon PA-C - Last Filed: 11/04/23 07:43> Procedures Date of Service Date of Service: 11/04/23 <Annette Mckeon PA-C - Last Filed: 11/04/23 07:43> 11/04/23 <Sridhar Christian MD - Last Filed: 11/04/23 08:14> Progress Note: A&P Assessment and plan (1) Small bowel obstruction: Status: Acute <Annette Mckeon PA-C - Last Filed: 11/04/23 07:43> Assessment and Plan: Status post extensive lysis of adhesions Has incisional pain NG tube output minimal Abdomen soft, tender incisions Await return of GI function Clamp NGT and check residuals later Out of bed Pain management DC Anand Seen and examined independently <Sridhar Christian MD - Last Filed: 11/04/23 08:14> Assessment and Plan: POD #1 s/p ex lap, extensive MONICA for SBO, internal hernia. Having difficulty with pain post op. NGT scant output. VS- hypertensive. Abd exam with appropriate post op tenderness, softly distended. Dressing dry and intact. Will clamp NGT for 4 hrs, check residual. Remove if <100 and remains asymptomatic, unclamp sooner if develops nausea, vomiting, worsening pain, distention. Dc anand. Increase activity, IS use. 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 <Annette Mckeon PA-C - Last Filed: 11/04/23 07:43> Time Spent With Patient Time: Total time managing care of this patient today ____ minutes. <Annette Mckeon PA-C - Last Filed: 11/04/23 07:43> Quality Stroke Does the patient have a stroke diagnosis?: No <Annette Mckeon PA-C - Last Filed: 11/04/23 07:43> VTE Prior VTE?: No <Annette Mckeon PA-C - Last Filed: 11/04/23 07:43> VTE Risk Level:: Medical - moderate - high <Annette Mckeon PA-C - Last Filed: 11/04/23 07:43> VTE Device Contraindication: N/A - Device Ordered <Annette Mckeon PA-C - Last Filed: 11/04/23 07:43> VTE Drug Contraindication: N/A - Med Ordered <Annette Mckeon PA-C - Last Filed: 11/04/23 07:43>
[2023-11-04] MEDS: Heparin Sodium,Porcine 5,000 UNIT/ML VIAL 5000 UNIT SUBCUT ×2 (09:19→21:45)
[2023-11-04] MEDS: Famotidine/PF 20 MG/2 ML VIAL IVPUSH (09:20)
[2023-11-04] MEDS: ondansetron HCL 4 MG/2 ML VIAL IVPUSH (09:24)
--- NOTE | 2023-11-04 10:28 | PC.NURSE ---
NGT clamped by this am. Tellez dcd at 0930- [id number]. Midline abdominal dressing CDI. MANAGER ASSISTED LIVING morphine bolus only maintaining pt pain at 4-5, dozing intermittently. Dr Falcon aware of BP 148/100 manually done this am, will continue to monitor
--- NOTE | 2023-11-04 12:10 | HO.PM.IMPN ---
Subjective Subjective Date of Service: 11/04/23 Interval History: Being followed postoperatively for medical management of hypertension Noted to have elevated blood pressure this morning likely due to abdominal pain, since was not receiving iv morphine IV was not working, patient remains NPO, NG clamped, since no significant output overnight, no other acute events overnight, denies headache, no dizziness, no nausea, no vomiting, no fevers or chills. Review of Systems All other system reviewed and negative Physical Exam Vital Signs: Vital Signs: Last Vital Signs Temp 97.3 F 11/04/23 08:00 Pulse 86 11/04/23 11:46 Resp 18 11/04/23 11:46 BP 139/81 11/04/23 11:46 Pulse Ox 95 11/04/23 11:46 O2 Del Method Room Air 11/04/23 10:00 O2 Flow Rate 2 11/03/23 20:40 BMI result Body Mass Index 25.2 Const: Other: General awake alert x3 , in no acute distress. Anicteric sclera Neck supple no JVD. CVS regular rate rhythm, Respiratory lungs clear to auscultation, no respiratory distress, no wheeze, no rhonchi. Gastrointestinal abdomen soft, tender at site of incision, dressing in place , bowel sounds audible, no guarding , no rigidity. Extremities no edema. Neuro non focal Skin no rash Psych appropriate affect. Objective Data Active Medications Benzocaine (Throat Lozenge, Medicated Lozenge) 1 lozenge MUCOUS MEM Q2H PRN PRN Reason: Sore Throat Last Admin: 11/03/23 18:30 Dose: 1 lozenge Documented By: NHAN Famotidine (Famotidine/Pf 20 Mg/2 Ml Vial) 20 mg IVPUSH DAILY [facility] Last Admin: 11/04/23 09:20 Dose: 20 mg Documented By: SAMRA Heparin Sodium (Porcine) (Heparin Sodium,Porcine 5,000 Unit/Ml Vial) 5,000 unit SUBCUT Q12H [facility] Last Admin: 11/04/23 09:19 Dose: 5,000 unit Documented By: SAMRA Hydralazine HCl (Hydralazine Hcl 20 Mg/Ml Vial) 5 mg IVPUSH Q8H PRN; Protocol PRN Reason: for SBP >180 Lactated Ringer's (Lr) 1,000 mls @ 100 mls/hr IVCONT .Q10H [facility] Last Admin: 11/04/23 02:04 Dose: 100 mls/hr Documented By: ANTOIC Morphine Sulfate (Morphine Sulfate/Ns) 100 mg in 100 mls @ 0 mls/hr IVCONT .Q0M [facility]; Protocol Last Infusion: 11/04/23 11:46 Dose: 0.01 mg/hr, 0.01 mls/hr Documented By: SAMRA Acetaminophen (Ofirmev) 1,000 mg in 100 mls @ 400 mls/hr IV Q6H [facility] Last Infusion: 11/04/23 09:39 Dose: Infused Documented By: SAMRA Lorazepam (Lorazepam 2 Mg/Ml Vial) 0.5 mg IVPUSH Q8H PRN PRN Reason: anxiety Naloxone HCl (Naloxone Hcl 0.4 Mg/Ml Vial) 0.2 mg IVPUSH Q2M PRN PRN Reason: Excessive sedation or RR < 8 Ondansetron HCl (Ondansetron Hcl 4 Mg/2 Ml Vial) 4 mg IVPUSH Q8H PRN PRN Reason: Nausea Last Admin: 11/04/23 09:24 Dose: 4 mg Documented By: SAMRA Sodium Chloride (0.9 % Sodium Chloride Flush 3 Ml Syringe) 3 ml IVFLUSH QSHIFT [facility] Last Admin: 11/04/23 07:40 Dose: Not Given Documented By: SAMRA Non-Admin Reason: IV Running Labs 11/04/23 05:24 11/04/23 05:24 Labs: Laboratory Results - last 24 hr 11/04/23 05:24 MCV 85.6 MCH 28.7 MCHC 33.5 RDW 14.3 Plt Count 350 MPV 8.8 L Immature Gran % (Auto) 0.6 H Neut % (Auto) 75.0 H Lymph % (Auto) 11.5 L [place] % (Auto) 12.7 H Eos % (Auto) 0.0 Baso % (Auto) 0.2 Lymph # (Auto) 1.9 [place] # (Auto) 2.1 H Eos # (Auto) 0.0 Baso # (Auto) 0.0 Abs Immat Gran (auto) 0.10 H Absolute Neuts (auto) 12.4 H Absolute Nucleated RBC 0.000 Nucleated RBC % (auto) 0.0 Smear Tech's Comments VERIFIED Anion Gap 15 Estim Creat Clear Calc 57.0 Estimated GFR > 60 Fasting Glucose 110 H Calcium 9.3 D Microbiology Microbiology Results: Microbiology 11/03/23 02:33 Blood Culture - Preliminary Blood - Venous No growth after 24 hours. 11/03/23 02:28 Blood Culture - Preliminary Blood - Venous No growth after 24 hours. 11/02/23 22:59 Urine Culture - Preliminary Urine clean catch - Urine charles top Culture in progress. Assessment and Plan (1) Small bowel obstruction: Status: Acute (2) Fibromyalgia: Status: Acute (3) Hypertension: Status: Acute Plan 58-year-old female patient presented with abdominal pain and diagnosed to have small bowel obstruction. 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 Hypertension elevated blood pressure likely due to pain, monitor BP closely Continue IV hydralazine 5 mg as needed if systolic BP greater than 180. on lisinopril 5 mg daily, currently on hold, will resume once placed on diet. Fibromyalgia on Cymbalta and cyclobenzaprine 10 mg at bedtime, hold all mouth meds since patient NPO History of anxiety depression , no acute exacerbation noted, home medications trazodone, hydroxyzine on hold since NPO follow clinical course DVT prophylaxis on heparin Full code Quality Stroke Does the patient have a stroke diagnosis?: No VTE Prior VTE?: No VTE Risk Level:: Medical - moderate - high VTE Device Contraindication: N/A - Device Ordered VTE Drug Contraindication: N/A - Med Ordered
[2023-11-04] MEDS: Throat Lozenge, Medicated LOZENGE 1 LOZENGE MUCOUS MEM (12:56)
--- NOTE | 2023-11-04 13:26 | MHC.CM.PN ---
IMM delivered. Patient lives in an apartment, usually alone but her sister is staying w/ her temporarily. Functionally independent. PCP Kian Schultz. Completed HCP and placed in chart. DP: Goal is home self care, family to transport. CM alexandro continue to follow.
--- NOTE | 2023-11-04 13:27 | PC.NURSE ---
Pt c/o nausea, not due for zofran. Annette Mckeon notified. Pt NGT reconnected to low intermittent wall suction. Pending effect
--- NOTE | 2023-11-04 14:28 | HO.POSTANES ---
Post Anesthesia Evaluation Post Anesthesia Evaluation Date of Service: 11/03/23 Vital Signs: Vital Signs Temp Pulse Resp BP Pulse Ox O2 Del Method 11/04/23 14:00 97.6 F 88 16 162/88 H 95 Room Air 11/04/23 12:00 97.1 F 86 16 137/81 96 Room Air 11/04/23 11:46 86 18 139/81 95 11/04/23 10:00 79 18 143/85 H 95 Room Air 11/04/23 10:00 79 18 143/85 H 95 11/04/23 08:00 80 16 148/100 H 94 11/04/23 08:00 97.3 F 80 16 148/100 H 94 Room Air 11/04/23 06:00 97.4 F 90 141/95 H 93 Room Air 11/04/23 03:53 97.4 F 77 18 144/85 H 93 Room Air Anesthesia: General Endotracheal-GETA Mental Status: Awake Pain Control: Satisfactory Nausea/Vomiting: None Hydration: Adequate Anesthesia-Related Issues: No Anes. Related Issues
--- NOTE | 2023-11-04 14:57 | P.CDIM_ITS ---
PROVIDER RESPONSE TEXT: To clarify, the appropriate diagnosis supported by the clinical indicators: Small bowel obstruction: partial QUERY TEXT: PHYSICIAN'S DOCUMENTATION REQUEST Date of Query: 11/04/2023 07:58 AM EDT Patient Name: Phylicia Reilly Admit Date: 11/03/2023 Dear Sridhar Christian, A review of the medical record indicates additional documentation may be needed. Please review below and update the documentation accordingly. Clinical Indicators: Op report 11/02 - Small bowel obstruction, internal hernia Laparotomy, extensive lysis of adhesions. Abdominal discomfort, decreased flatus and increased burping, nausea and vomiting. Unable to tolerate PO intake. Based on the above, could you clarify the appropriate specifics to the SBO: Small bowel obstruction partial, complete, incomplete, etc. Other (explain) Clinically unable to determine (explain) Thank you, Alison Álvarez, CCS, CDIS Use of terms such as suspected, likely, concern for, or probable (associated with a specific diagnosi s that is being evaluated, monitored, or treated as if it exists) are acceptable and can be coded in the inpatient se tting, when documented at the time of discharge. Please use your independent medical judgment in providing your response. THIS QUERY IS PART OF THE PERMANENT MEDICAL RECORD
--- NOTE | 2023-11-04 15:12 | PM.EVENT ---
Event Note Date of Service: 11/04/23 Event Note: On afternoon rounds Had been nauseous so NG tube was not DC'ed She does describe passing small amounts of flatus Abdomen soft Keep NG tube in for Pain management DC NG tube and started on clear liquids when passing flatus more consistently Family updated Time Spent With Patient Time: Total time managing care of this patient today ____ minutes.
[2023-11-04] MEDS: Morphine Sulfate/NS 100 MG/100 ML PLAST..BAG IVCONT (22:16)
[2023-11-05] VITALS (13 sets, daily range): BP systolic 134–168; BP diastolic 73–93; PULSE 85–100; RESP 17–18; TEMP 36.3–37.3; O2SAT 92–98
[2023-11-05] MEDS: Acetaminophen 1,000 MG/100 ML PIGGYBACK 400 MG IV ×4 (03:55→23:13)
[2023-11-05] MEDS: Famotidine/PF 20 MG/2 ML VIAL IVPUSH (08:14)
[2023-11-05] MEDS: Heparin Sodium,Porcine 5,000 UNIT/ML VIAL 5000 UNIT SUBCUT ×2 (10:00→23:12)
[2023-11-05] MEDS: Lactated Ringers 1,000 ML 100 ML IVCONT ×2 (10:04→20:33)
--- NOTE | 2023-11-05 11:35 | P.PNGS_ITS ---
Subjective Subjective Date of Service: 11/05/23 Interval history: pt feeling ok, little nauseated but doing ok Physical Exam 2 Vital Signs: Vital Signs: Last Vital Signs Temp 97.4 F 11/05/23 11:06 Pulse 90 11/05/23 11:06 Resp 18 11/05/23 11:06 BP 168/93 H 11/05/23 11:06 Pulse Ox 97 11/05/23 11:06 O2 Del Method Room Air 11/05/23 11:06 O2 Flow Rate 2 11/03/23 20:40 BMI result Body Mass Index 25.2 Const: General: cooperative, healthy appearing and acute distress mild Resp: Auscultation: clear to auscultation bilaterally Cardio: Rate: regular rate Rhythm: regular rhythm GI: Other: abdomen is distended quiet bowel sounds - little tender around Objective Data Active Medications Benzocaine (Throat Lozenge, Medicated Lozenge) 1 lozenge MUCOUS MEM Q2H PRN PRN Reason: Sore Throat Last Admin: 11/04/23 12:56 Dose: 1 lozenge Documented By: SAMRA Famotidine (Famotidine/Pf 20 Mg/2 Ml Vial) 20 mg IVPUSH DAILY [facility] Last Admin: 11/05/23 08:14 Dose: 20 mg Documented By: BRIAN Heparin Sodium (Porcine) (Heparin Sodium,Porcine 5,000 Unit/Ml Vial) 5,000 unit SUBCUT Q12H [facility] Last Admin: 11/05/23 10:00 Dose: 5,000 unit Documented By: BRIAN Hydralazine HCl (Hydralazine Hcl 20 Mg/Ml Vial) 5 mg IVPUSH Q8H PRN; Protocol PRN Reason: for SBP >180 Lactated Ringer's (Lr) 1,000 mls @ 100 mls/hr IVCONT .Q10H [facility] Last Admin: 11/05/23 10:04 Dose: 100 mls/hr Documented By: BRIAN Morphine Sulfate (Morphine Sulfate/Ns) 100 mg in 100 mls @ 0 mls/hr IVCONT .Q0M [facility]; Protocol Last Admin: 11/04/23 22:16 Dose: 0.01 mg/hr, 0.01 mls/hr Documented By: MARINO Acetaminophen (Ofirmev) 1,000 mg in 100 mls @ 400 mls/hr IV Q6H [facility] Last Infusion: 11/05/23 10:18 Dose: Infused Documented By: BRIAN Lorazepam (Lorazepam 2 Mg/Ml Vial) 0.5 mg IVPUSH Q8H PRN PRN Reason: anxiety Naloxone HCl (Naloxone Hcl 0.4 Mg/Ml Vial) 0.2 mg IVPUSH Q2M PRN PRN Reason: Excessive sedation or RR < 8 Ondansetron HCl (Ondansetron Hcl 4 Mg/2 Ml Vial) 4 mg IVPUSH Q8H PRN PRN Reason: Nausea Last Admin: 11/04/23 09:24 Dose: 4 mg Documented By: SAMRA Sodium Chloride (0.9 % Sodium Chloride Flush 3 Ml Syringe) 3 ml IVFLUSH QSHIFT [facility] Last Admin: 11/05/23 07:12 Dose: Not Given Documented By: BRIAN Non-Admin Reason: IV Running Labs 11/04/23 05:24 11/04/23 05:24 Microbiology Microbiology Results: Microbiology 11/03/23 02:33 Blood Culture - Preliminary Blood - Venous No growth after 48 hours. 11/03/23 02:28 Blood Culture - Preliminary Blood - Venous No growth after 48 hours. 11/02/23 22:59 Urine Culture - Final Urine clean catch - Urine charles top Strep agalactiae (Grp B) Procedures Date of Service Date of Service: 11/05/23 Progress Note: A&P Assessment and plan (1) Small bowel obstruction: Status: Acute Assessment and Plan: pt is pod#1 sp exploration and reduction internal hernia - bowel looked ok - no resection - ileus continues will keep ngtube in and hopefully can remove tomorrow cont with npo and ivf iv pain meds iv ppi Time Spent With Patient Time: Total time managing care of this patient today ____ minutes. Quality Stroke Does the patient have a stroke diagnosis?: No VTE Prior VTE?: No VTE Risk Level:: Medical - moderate - high VTE Device Contraindication: N/A - Device Ordered VTE Drug Contraindication: N/A - Med Ordered
[2023-11-05] MEDS: ondansetron HCL 4 MG/2 ML VIAL IVPUSH (12:28)
--- NOTE | 2023-11-05 13:34 | P.PNIM_ITS ---
Subjective Subjective Date of Service: 11/05/23 Interval History: Patient status post laparotomy with extensive lysis of adhesions Complaining of 5/10 abdominal pain, remains NPO, NG output 200 this morning, passing flatus, receiving IV morphine, no headache, no dizziness, BP elevated Review of Systems All other system reviewed and negative. Physical Exam 2 Vital Signs: Vital Signs: Last Vital Signs Temp 97.4 F 11/05/23 11:06 Pulse 90 11/05/23 11:06 Resp 18 11/05/23 11:06 BP 168/93 H 11/05/23 11:06 Pulse Ox 97 11/05/23 11:06 O2 Del Method Room Air 11/05/23 11:06 O2 Flow Rate 2 11/03/23 20:40 BMI result Body Mass Index 25.2 Const: Other: General awake alert x3 , in no acute distress. Anicteric sclera Neck supple no JVD. CVS regular rate rhythm, Respiratory lungs clear to auscultation, no respiratory distress, no wheeze, no rhonchi. Gastrointestinal abdomen soft, tender at site of incision, dressing in place , bowel sounds audible, no guarding , no rigidity. Extremities no edema. Neuro non focal Skin no rash Psych appropriate affect. Objective Data Active Medications Benzocaine (Throat Lozenge, Medicated Lozenge) 1 lozenge MUCOUS MEM Q2H PRN PRN Reason: Sore Throat Last Admin: 11/04/23 12:56 Dose: 1 lozenge Documented By: SAMRA Famotidine (Famotidine/Pf 20 Mg/2 Ml Vial) 20 mg IVPUSH DAILY [facility] Last Admin: 11/05/23 08:14 Dose: 20 mg Documented By: BRIAN Heparin Sodium (Porcine) (Heparin Sodium,Porcine 5,000 Unit/Ml Vial) 5,000 unit SUBCUT Q12H [facility] Last Admin: 11/05/23 10:00 Dose: 5,000 unit Documented By: BRIAN Hydralazine HCl (Hydralazine Hcl 20 Mg/Ml Vial) 5 mg IVPUSH Q8H PRN; Protocol PRN Reason: for SBP >180 Lactated Ringer's (Lr) 1,000 mls @ 100 mls/hr IVCONT .Q10H [facility] Last Admin: 11/05/23 10:04 Dose: 100 mls/hr Documented By: BRIAN Morphine Sulfate (Morphine Sulfate/Ns) 100 mg in 100 mls @ 0 mls/hr IVCONT .Q0M [facility]; Protocol Last Admin: 11/04/23 22:16 Dose: 0.01 mg/hr, 0.01 mls/hr Documented By: JONAHRISIsrael Acetaminophen (Ofirmev) 1,000 mg in 100 mls @ 400 mls/hr IV Q6H [facility] Last Infusion: 11/05/23 10:18 Dose: Infused Documented By: BRIAN Lorazepam (Lorazepam 2 Mg/Ml Vial) 0.5 mg IVPUSH Q8H PRN PRN Reason: anxiety Naloxone HCl (Naloxone Hcl 0.4 Mg/Ml Vial) 0.2 mg IVPUSH Q2M PRN PRN Reason: Excessive sedation or RR < 8 Ondansetron HCl (Ondansetron Hcl 4 Mg/2 Ml Vial) 4 mg IVPUSH Q8H PRN PRN Reason: Nausea Last Admin: 11/05/23 12:28 Dose: 4 mg Documented By: BRIAN Sodium Chloride (0.9 % Sodium Chloride Flush 3 Ml Syringe) 3 ml IVFLUSH QSHIFT [facility] Last Admin: 11/05/23 07:12 Dose: Not Given Documented By: BRIAN Non-Admin Reason: IV Running Labs 11/04/23 05:24 11/04/23 05:24 Microbiology Microbiology Results: Microbiology 11/03/23 02:33 Blood Culture - Preliminary Blood - Venous No growth after 48 hours. 11/03/23 02:28 Blood Culture - Preliminary Blood - Venous No growth after 48 hours. 11/02/23 22:59 Urine Culture - Final Urine clean catch - Urine charles top Strep agalactiae (Grp B) Assessment and Plan (1) Small bowel obstruction: Status: Acute (2) Fibromyalgia: Status: Acute (3) Hypertension: Status: Acute Plan 58-year-old female patient presented with abdominal pain and diagnosed to have small bowel obstruction. 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 NG output worsened in last 24 hours Encourage out of bed to chair and ambulation, and minimize narcotics Hypertension elevated blood pressure likely due to pain, monitor BP closely Continue IV hydralazine 5 mg as needed if systolic BP greater than 180. on lisinopril 5 mg daily, currently on hold, will resume once placed on diet. Fibromyalgia on Cymbalta and cyclobenzaprine 10 mg at bedtime, hold all mouth meds since patient NPO History of anxiety depression , no acute exacerbation noted, home medications trazodone, hydroxyzine on hold since NPO follow clinical course DVT prophylaxis on heparin Full code Quality Stroke Does the patient have a stroke diagnosis?: No VTE Prior VTE?: No VTE Risk Level:: Medical - moderate - high VTE Device Contraindication: N/A - Device Ordered VTE Drug Contraindication: N/A - Med Ordered
[2023-11-05] MEDS: Morphine Sulfate/NS 100 MG/100 ML PLAST..BAG IVCONT (22:49)
[2023-11-05] MEDS: 0.9 % Sodium Chloride Flush 3 ML SYRINGE IVFLUSH (23:50)
[2023-11-06] VITALS (11 sets, daily range): BP systolic 127–179; BP diastolic 66–92; PULSE 89–104; RESP 16–20; TEMP 36.3–37; O2SAT 94–96
--- NOTE | 2023-11-06 06:26 | PC.NURSE ---
Patient seen on s3. Here this admission for SBO s/p ex-lap and LOAs. A&Ox4. Continues on morphine COMMUNICATION CLERK 1mg bolus/10 mins/6 boluses per hour as ordered. Patient is appropriately arousable to voice and staff entering the room. Bag changed this shift per policy at 22:49 with nursing plastics supervisor Lakisha as witness. Completed Nursing COMMUNICATION CLERK Flow Sheet was placed in the pt's chart, and a new sheet was started and will be passed along to the oncoming nurse this morning. Please see these sheets for full details. Pt reports pain is well controlled ranging 3-5/10 overnight. Educated on splinting and ice packs also provided. Remains NPO with an NGT to right nare to LIWS as ordered. Patient on mucousy, bilious green output. Pt denies n/v. Midline abdominal dressing changed 11/04 is dry and intact with minimal old staining that is unchanged from prior outline. Abdomen is appropriately tender to palpation. Pt has been ambulating to the bathroom with standby assistance and walker multiple times overnight, voiding odorless cyu. Achieves [id number] on IS. Bed alarm on and safety measures in place. Call kaye within reach, pt rings appropriately to make needs known. Please see shift assessments, tasks, and MAR for full details. Plan of care continues.
[2023-11-06] MEDS: Lactated Ringers 1,000 ML 100 ML IVCONT ×2 (08:38→18:14)
[2023-11-06] MEDS: ondansetron HCL 4 MG/2 ML VIAL IVPUSH (08:43)
[2023-11-06] MEDS: Famotidine/PF 20 MG/2 ML VIAL IVPUSH (08:43)
[2023-11-06] MEDS: Acetaminophen 1,000 MG/100 ML PIGGYBACK 400 MG IV (08:53)
[2023-11-06] MEDS: Heparin Sodium,Porcine 5,000 UNIT/ML VIAL 5000 UNIT SUBCUT ×2 (10:31→20:49)
--- NOTE | 2023-11-06 11:01 | P.PNIM_ITS ---
Subjective Subjective Date of Service: 11/06/23 Interval History: no abd pain, min output from NGT BP 179/92->140/71 this AM no chest pain no dyspnea Review of Systems Review of Systems: Yes all other systems are reviewed and are negative Physical Exam 2 Vital Signs: Vital Signs: Last Vital Signs Temp 98.6 F 11/06/23 10:00 Pulse 92 11/06/23 10:00 Resp 18 11/06/23 10:00 BP 140/71 H 11/06/23 10:00 Pulse Ox 95 11/06/23 10:00 O2 Del Method Room Air 11/06/23 10:00 O2 Flow Rate 2 11/03/23 20:40 BMI result Body Mass Index 25.2 Gen: in no acute distress HEENT: sclera anicteric, moist mucus membranes Neck: supple Lungs: clear to auscultation bilaterally Heart: regular rate and rhythm, no murmurs Abd: soft, incision clean, NGT with minimal output Ext: no edema Skin: warm/well-perfused Neuro: alert and oriented x3, no focal findings Psych: appropriate affect Objective Data Active Medications Benzocaine (Throat Lozenge, Medicated Lozenge) 1 lozenge MUCOUS MEM Q2H PRN PRN Reason: Sore Throat Last Admin: 11/04/23 12:56 Dose: 1 lozenge Documented By: SAMRA Famotidine (Famotidine/Pf 20 Mg/2 Ml Vial) 20 mg IVPUSH DAILY [facility] Last Admin: 11/06/23 08:43 Dose: 20 mg Documented By: BRIAN Heparin Sodium (Porcine) (Heparin Sodium,Porcine 5,000 Unit/Ml Vial) 5,000 unit SUBCUT Q12H [facility] Last Admin: 11/06/23 10:31 Dose: 5,000 unit Documented By: BRIAN Hydralazine HCl (Hydralazine Hcl 20 Mg/Ml Vial) 5 mg IVPUSH Q8H PRN; Protocol PRN Reason: for SBP >180 Lactated Ringer's (Lr) 1,000 mls @ 100 mls/hr IVCONT .Q10H [facility] Last Admin: 11/06/23 08:38 Dose: 100 mls/hr Documented By: BRIAN Morphine Sulfate (Morphine Sulfate/Ns) 100 mg in 100 mls @ 0 mls/hr IVCONT .Q0M [facility]; Protocol Last Admin: 11/05/23 22:49 Dose: 0.01 mg/hr, 0.01 mls/hr Documented By: SHARONDA Acetaminophen (Ofirmev) 1,000 mg in 100 mls @ 400 mls/hr IV Q6H [facility] Last Infusion: 11/06/23 10:37 Dose: Infused Documented By: BRIAN Lorazepam (Lorazepam 2 Mg/Ml Vial) 0.5 mg IVPUSH Q8H PRN PRN Reason: anxiety Naloxone HCl (Naloxone Hcl 0.4 Mg/Ml Vial) 0.2 mg IVPUSH Q2M PRN PRN Reason: Excessive sedation or RR < 8 Ondansetron HCl (Ondansetron Hcl 4 Mg/2 Ml Vial) 4 mg IVPUSH Q8H PRN PRN Reason: Nausea Last Admin: 11/06/23 08:43 Dose: 4 mg Documented By: BRIAN Sodium Chloride (0.9 % Sodium Chloride Flush 3 Ml Syringe) 3 ml IVFLUSH QSHIFT [facility] Last Admin: 11/06/23 07:07 Dose: Not Given Documented By: BRIAN Non-Admin Reason: IV Running Labs 11/04/23 05:24 11/04/23 05:24 Assessment and Plan (1) Small bowel obstruction: Status: Acute (2) Fibromyalgia: Status: Acute (3) Hypertension: Status: Acute Plan d4 58yo F with HTN on surgical service for SBO SBO - s/p laparotomy/MONICA 11/03/23 HTN - prn IV hydralazine for SBP >180, resume PO lisinopril 5 mg/d when NGT out and taking POs fibromyalgia - duloxetine + cyclobenzaprine on hold while NPO mood disorder - trazodone + hydroxyzine + duloxetine on hold while NPO VTE ppx - UFH Thank you for this consultation. We will continue to follow the patient while they are admitted to your service. Total time managing care of this patient today: 35 minutes. Quality Stroke Does the patient have a stroke diagnosis?: No VTE Prior VTE?: No VTE Risk Level:: Medical - moderate - high VTE Device Contraindication: N/A - Device Ordered VTE Drug Contraindication: N/A - Med Ordered
[2023-11-06] MEDS: Throat Spray, Medicated 177 ML BOTTLE 1 SPRAY MUCOUS MEM (12:30)
--- NOTE | 2023-11-06 13:22 | PM.PNGS ---
Subjective Subjective Date of Service: 11/06/23 Interval history: Patient is still complaining of midline abdominal pain but no nausea and vomiting. She has been passing gas she says from below but no bowel sounds. NG tube has not really put out a lot recently but there was a period of time yesterday where it did put of more fluid and she did admit to taking some more p.o. intake but I do not think it everything was well recorded. She is also complaining of the NG tube bothering the back of her throat Physical Exam Vital Signs: Vital Signs: Last Vital Signs Temp 97.8 F 11/06/23 12:00 Pulse 92 11/06/23 12:00 Resp 18 11/06/23 12:00 BP 159/84 H 11/06/23 12:00 Pulse Ox 96 11/06/23 12:00 O2 Del Method Room Air 11/06/23 12:00 O2 Flow Rate 2 11/03/23 20:40 BMI result Body Mass Index 25.2 Const: General: cooperative, healthy appearing, comfortable, no acute distress and tired appearing Orientation/consciousness: patient oriented x3 Resp: Effort & Inspection: normal respiratory effort Auscultation: clear to auscultation bilaterally Cardio: Rate: regular rate Rhythm: regular rhythm GI: Other: Abdomen is soft maybe little distended mild tenderness some quiet but active bowel sounds Incision looks great Skin: Other: Nonicteric General skin exam: no rashes or lesions noted Neuro: General: patient oriented x3 Cranial nerves: Yes CN's II-XII intact bilaterally Extrem: General: Yes normal to inspection Objective Data Active Medications Benzocaine (Throat Lozenge, Medicated Lozenge) 1 lozenge MUCOUS MEM Q2H PRN PRN Reason: Sore Throat Last Admin: 11/04/23 12:56 Dose: 1 lozenge Documented By: SAMRA Famotidine (Famotidine/Pf 20 Mg/2 Ml Vial) 20 mg IVPUSH DAILY [facility] Last Admin: 11/06/23 08:43 Dose: 20 mg Documented By: BRIAN Heparin Sodium (Porcine) (Heparin Sodium,Porcine 5,000 Unit/Ml Vial) 5,000 unit SUBCUT Q12H [facility] Last Admin: 11/06/23 10:31 Dose: 5,000 unit Documented By: BRIAN Hydralazine HCl (Hydralazine Hcl 20 Mg/Ml Vial) 5 mg IVPUSH Q8H PRN; Protocol PRN Reason: for SBP >180 Lactated Ringer's (Lr) 1,000 mls @ 100 mls/hr IVCONT .Q10H [facility] Last Admin: 11/06/23 08:38 Dose: 100 mls/hr Documented By: BRIAN Morphine Sulfate (Morphine Sulfate/Ns) 100 mg in 100 mls @ 0 mls/hr IVCONT .Q0M [facility]; Protocol Last Admin: 11/05/23 22:49 Dose: 0.01 mg/hr, 0.01 mls/hr Documented By: SHARONDA Acetaminophen (Ofirmev) 1,000 mg in 100 mls @ 400 mls/hr IV Q6H [facility] Last Infusion: 11/06/23 10:37 Dose: Infused Documented By: BRIAN Lorazepam (Lorazepam 2 Mg/Ml Vial) 0.5 mg IVPUSH Q8H PRN PRN Reason: anxiety Multi-Ingred Medicated Throat [place] (Throat [place], Medicated 177 Ml Bottle) 1 spray MUCOUS MEM Q2H PRN PRN Reason: Sore Throat Last Admin: 11/06/23 12:30 Dose: 1 spray Documented By: BRIAN Naloxone HCl (Naloxone Hcl 0.4 Mg/Ml Vial) 0.2 mg IVPUSH Q2M PRN PRN Reason: Excessive sedation or RR < 8 Ondansetron HCl (Ondansetron Hcl 4 Mg/2 Ml Vial) 4 mg IVPUSH Q8H PRN PRN Reason: Nausea Last Admin: 11/06/23 08:43 Dose: 4 mg Documented By: BRIAN Sodium Chloride (0.9 % Sodium Chloride Flush 3 Ml Syringe) 3 ml IVFLUSH QSHIFT [facility] Last Admin: 11/06/23 07:07 Dose: Not Given Documented By: BRIAN Non-Admin Reason: IV Running Labs 11/04/23 05:24 11/04/23 05:24 Procedures Date of Service Date of Service: 11/06/23 Progress Note: A&P Assessment and plan (1) Small bowel obstruction: Status: Acute Plan Patient is status post exploratory laparotomy with extensive lysis of adhesions and internal hernia but no resection. Ileus is improving she is doing little bit better. Plan was to take out the NG tube today which we did but to continue keeping her with just sips of liquids until better gas flatus abdominal distention and maybe even passing stool. We will reassess tomorrow. Continue with IV fluids. She understands and agrees with the above plan ambulate and incentive spirometer Time Spent With Patient Time: Total time managing care of this patient today ____ minutes. Quality Stroke Does the patient have a stroke diagnosis?: No VTE Prior VTE?: No VTE Risk Level:: Medical - moderate - high VTE Device Contraindication: N/A - Device Ordered VTE Drug Contraindication: N/A - Med Ordered
[2023-11-06] MEDS: Morphine Sulfate/NS 100 MG/100 ML PLAST..BAG IVCONT (22:27)
[2023-11-07] VITALS (10 sets, daily range): BP systolic 138–161; BP diastolic 75–98; PULSE 88–100; RESP 16–20; TEMP 36.1–37; O2SAT 92–95
[2023-11-07] MEDS: Lactated Ringers 1,000 ML 100 ML IVCONT ×2 (03:53→14:05)
--- NOTE | 2023-11-07 07:34 | P.PNGS_ITS ---
Subjective Subjective Date of Service: 11/07/23 <Annette Mckeon PA-C - Last Filed: 11/07/23 07:37> 11/07/23 <Sridhar Christian MD - Last Filed: 11/07/23 08:08> Interval history: Feels better, pain controlled, using PACKAGING INSPECTOR minimally. Tolerating sips of water. OOB and ambulating to bathroom. Passing flatus. <JAVIER Rosa - Last Filed: 11/07/23 07:37> Physical Exam 2 Vital Signs: Vital Signs: Last Vital Signs Temp 98 F 11/07/23 07:02 Pulse 99 11/07/23 07:02 Resp 17 11/07/23 07:02 BP 138/82 11/07/23 07:02 Pulse Ox 94 11/07/23 07:02 O2 Del Method Room Air 11/07/23 07:02 O2 Flow Rate 2 11/03/23 20:40 BMI result Body Mass Index 25.2 <Annette Mckeon PA-C - Last Filed: 11/07/23 07:37> Const: General: comfortable, no acute distress and alert <Annette Mckeon PA-C - Last Filed: 11/07/23 07:37> Resp: Effort & Inspection: normal respiratory effort <JESSE Rosa Last Filed: 11/07/23 07:37> GI: Inspection: Yes distended (mild) and Yes incision (clean, nargis intact) <Annette Mckeon PA-C - Last Filed: 11/07/23 07:37> Palpation (GI): Soft to palpation, Tenderness to palpation present (GI) (mild incisional) and no guarding <Annette Mckeon PA-C - Last Filed: 11/07/23 07:37> Skin: General skin exam: no rashes or lesions noted <JESSE Rosa Last Filed: 11/07/23 07:37> Objective Data Active Medications Benzocaine (Throat Lozenge, Medicated Lozenge) 1 lozenge MUCOUS MEM Q2H PRN PRN Reason: Sore Throat Last Admin: 11/04/23 12:56 Dose: 1 lozenge Documented By: SAMRA Famotidine (Famotidine/Pf 20 Mg/2 Ml Vial) 20 mg IVPUSH DAILY [facility] Last Admin: 11/06/23 08:43 Dose: 20 mg Documented By: BRIAN Heparin Sodium (Porcine) (Heparin Sodium,Porcine 5,000 Unit/Ml Vial) 5,000 unit SUBCUT Q12H [facility] Last Admin: 11/06/23 20:49 Dose: 5,000 unit Documented By: TYLER Hydralazine HCl (Hydralazine Hcl 20 Mg/Ml Vial) 5 mg IVPUSH Q8H PRN; Protocol PRN Reason: for SBP >180 Lactated Ringer's (Lr) 1,000 mls @ 100 mls/hr IVCONT .Q10H [facility] Last Admin: 11/07/23 03:53 Dose: 100 mls/hr Documented By: TYLER Lorazepam (Lorazepam 2 Mg/Ml Vial) 0.5 mg IVPUSH Q8H PRN PRN Reason: anxiety Morphine Sulfate (Morphine Sulfate 4 Mg/Ml Cartridge) 4 mg IVPUSH Q4H PRN; Protocol PRN Reason: Pain, Severe (Pain Scale 7-10) Multi-Ingred Medicated Throat [place] (Throat [place], Medicated 177 Ml Bottle) 1 spray MUCOUS MEM Q2H PRN PRN Reason: Sore Throat Last Admin: 11/06/23 12:30 Dose: 1 spray Documented By: BRIAN Naloxone HCl (Naloxone Hcl 0.4 Mg/Ml Vial) 0.2 mg IVPUSH Q2M PRN PRN Reason: Excessive sedation or RR < 8 Ondansetron HCl (Ondansetron Hcl 4 Mg/2 Ml Vial) 4 mg IVPUSH Q8H PRN PRN Reason: Nausea Last Admin: 11/06/23 08:43 Dose: 4 mg Documented By: BRIAN Oxycodone HCl (Oxycodone Hcl Immed Release 5 Mg Tablet) 5 mg PO Q4H PRN PRN Reason: Pain, Moderate(Pain Scale 4-6) Sodium Chloride (0.9 % Sodium Chloride Flush 3 Ml Syringe) 3 ml IVFLUSH QSHIFT [facility] Last Admin: 11/07/23 00:12 Dose: Not Given Documented By: TYLER Non-Admin Reason: IV Running <Annette Mckeon PA-C - Last Filed: 11/07/23 07:37> Labs CBC & Chem 7: 11/04/23 05:24 11/04/23 05:24 <Annette Mckeon PA-C - Last Filed: 11/07/23 07:37> Procedures Date of Service Date of Service: 11/07/23 <Annette Mckeon PA-C - Last Filed: 11/07/23 07:37> 11/07/23 <Sridhar Christian MD - Last Filed: 11/07/23 08:08> Progress Note: A&P Assessment and plan (1) Small bowel obstruction: Status: Acute <Annette Mckeon PA-C - Last Filed: 11/07/23 07:37> Assessment and Plan: Passing flatus No vomiting overnight Says she feels more comfortable Pain better control Start clear liquids and slowly advance as tolerated Encouraged to ambulate Abdomen soft and benign Seen and examined independently <Sridhar Christian MD - Last Filed: 11/07/23 08:08> Assessment and Plan: S/p ex lap, MONICA. Now with return of GI function. Advance to clear liquids. Dc PACKAGING INSPECTOR. Increase activity. Home when pain controlled on oral analgesics, tolerating solid diet. Patient comfortable with plan. <Annette Mckeon PA-C - Last Filed: 11/07/23 07:37> Time Spent With Patient Time: Total time managing care of this patient today ____ minutes. <Annette Mckeon PA-C - Last Filed: 11/07/23 07:37> Quality Stroke Does the patient have a stroke diagnosis?: No <Annette Mckeon PA-C - Last Filed: 11/07/23 07:37> VTE Prior VTE?: No <Annette Mckeon PA-C - Last Filed: 11/07/23 07:37> VTE Risk Level:: Medical - moderate - high <Annette Mckeon PA-C - Last Filed: 11/07/23 07:37> VTE Device Contraindication: N/A - Device Ordered <Annette Mckeon PA-C - Last Filed: 11/07/23 07:37> VTE Drug Contraindication: N/A - Med Ordered <Annette Mckeon PA-C - Last Filed: 11/07/23 07:37>
[2023-11-07] MEDS: Multivitamin TABLET 1 TAB PO (08:22)
[2023-11-07] MEDS: Cholecalciferol (Vitamin D3) 25 MCG TABLET PO (08:22)
[2023-11-07] MEDS: DULoxetine HCl 60 MG CAPSULE.DR PO ×2 (08:22→20:01)
[2023-11-07] MEDS: Famotidine/PF 20 MG/2 ML VIAL IVPUSH (08:22)
[2023-11-07] MEDS: lisinopriL 5 MG TABLET PO (08:22)
[2023-11-07] MEDS: 0.9 % Sodium Chloride Flush 3 ML SYRINGE IVFLUSH (08:30)
--- NOTE | 2023-11-07 09:28 | PC.NURSE ---
Assumed care of patient at 0700. CLAY HOUSE WORKER pump checked with warehouse supervisor 3rd shift RN Richa, CLAY HOUSE WORKER running per mar orders. CLAY HOUSE WORKER bag changed per previous RN at 22:30 per CLAY HOUSE WORKER sheet. Per CLAY HOUSE WORKER documentation sheet. 00:10 Bolus given 4; Bolus Attempted 4; Amount m ; Running total in ML: 4 02:14 Bolus given 2; Bolus Attempted 2; Amount M; Running total in ML: 6 04:00 Bolus given 3; Bolus Attempted 3; Amount M; Running total in ML: 9 06:00 Bolus given 1; Bolus Attempted 1; Amount m; Running total in ML: 10 0700 CLAY HOUSE WORKER pump checked with warehouse supervisor 3rd shift RN Richa, CLAY HOUSE WORKER running per MAR orders. 0800 Bolus given 5; Bolus Attempted: 5, Amount MG 5; Running total in ML 15. Medication Discontinued at this time per MD. Volume remaining per CLAY HOUSE WORKER pump 85ml. Volume wasted in pyxis 92.5ml.
--- NOTE | 2023-11-07 09:46 | P.PNIM_ITS ---
Subjective Subjective Date of Service: 11/07/23 Interval History: NGT out no abd pain started on clears Review of Systems Review of Systems: Yes all other systems are reviewed and are negative Physical Exam 2 Vital Signs: Vital Signs: Last Vital Signs Temp 98 F 11/07/23 07:02 Pulse 99 11/07/23 07:02 Resp 17 11/07/23 07:02 BP 138/82 11/07/23 08:22 Pulse Ox 94 11/07/23 07:02 O2 Del Method Room Air 11/07/23 07:02 O2 Flow Rate 2 11/03/23 20:40 BMI result Body Mass Index 25.2 Gen: in no acute distress HEENT: sclera anicteric, moist mucus membranes Neck: supple Lungs: clear to auscultation bilaterally Heart: regular rate and rhythm, no murmurs Abd: soft, non-tender, incision clean Ext: no edema Skin: warm/well-perfused Neuro: alert and oriented x3, no focal findings Psych: appropriate affect Objective Data Active Medications Acetaminophen (Acetaminophen 325 Mg Tablet) 650 mg PO Q6H PRN PRN Reason: fever, pain Benzocaine (Throat Lozenge, Medicated Lozenge) 1 lozenge MUCOUS MEM Q2H PRN PRN Reason: Sore Throat Last Admin: 11/04/23 12:56 Dose: 1 lozenge Documented By: SAMRA Cyclobenzaprine HCl (Cyclobenzaprine Hcl 10 Mg Tablet) 10 mg PO BEDTIME [facility] Duloxetine HCl (Duloxetine Hcl 60 Mg Capsule.Dr) 60 mg PO BID [facility] Last Admin: 11/07/23 08:22 Dose: 60 mg Documented By: HERBERTH Famotidine (Famotidine/Pf 20 Mg/2 Ml Vial) 20 mg IVPUSH DAILY [facility] Last Admin: 11/07/23 08:22 Dose: 20 mg Documented By: HERBERTH Heparin Sodium (Porcine) (Heparin Sodium,Porcine 5,000 Unit/Ml Vial) 5,000 unit SUBCUT Q12H [facility] Last Admin: 11/06/23 20:49 Dose: 5,000 unit Documented By: LYSAbdoul Hydralazine HCl (Hydralazine Hcl 20 Mg/Ml Vial) 5 mg IVPUSH Q8H PRN; Protocol PRN Reason: for SBP >180 Hydroxyzine HCl (Hydroxyzine Hcl 50 Mg Tablet) 50 mg PO BEDTIME [facility] Lactated Ringer's (Lr) 1,000 mls @ 100 mls/hr IVCONT .Q10H [facility] Last Admin: 11/07/23 03:53 Dose: 100 mls/hr Documented By: TYLER Lisinopril (Lisinopril 5 Mg Tablet) 5 mg PO DAILY [facility]; Protocol Last Admin: 11/07/23 08:22 Dose: 5 mg Documented By: HERBERTH Lorazepam (Lorazepam 2 Mg/Ml Vial) 0.5 mg IVPUSH Q8H PRN PRN Reason: anxiety Morphine Sulfate (Morphine Sulfate 4 Mg/Ml Cartridge) 4 mg IVPUSH Q4H PRN; Protocol PRN Reason: Pain, Severe (Pain Scale 7-10) Multi-Ingred Medicated Throat [place] (Throat [place], Medicated 177 Ml Bottle) 1 spray MUCOUS MEM Q2H PRN PRN Reason: Sore Throat Last Admin: 11/06/23 12:30 Dose: 1 spray Documented By: BRIAN Multivitamins/Vitamin C (Multivitamin Tablet) 1 tab PO DAILY [facility] Last Admin: 11/07/23 08:22 Dose: 1 tab Documented By: HERBERTH Naloxone HCl (Naloxone Hcl 0.4 Mg/Ml Vial) 0.2 mg IVPUSH Q2M PRN PRN Reason: Excessive sedation or RR < 8 Ondansetron HCl (Ondansetron Hcl 4 Mg/2 Ml Vial) 4 mg IVPUSH Q8H PRN PRN Reason: Nausea Last Admin: 11/06/23 08:43 Dose: 4 mg Documented By: BRIAN Oxycodone HCl (Oxycodone Hcl Immed Release 5 Mg Tablet) 5 mg PO Q4H PRN PRN Reason: Pain, Moderate(Pain Scale 4-6) Sodium Chloride (0.9 % Sodium Chloride Flush 3 Ml Syringe) 3 ml IVFLUSH QSHIFT [facility] Last Admin: 11/07/23 08:30 Dose: 3 ml Documented By: HERBERTH Trazodone HCl (Trazodone Hcl 100 Mg Tablet) 100 mg PO BEDTIME [facility] Vitamin D (Cholecalciferol (Vitamin D3) 25 Mcg Tablet) 25 mcg PO DAILY [facility] Last Admin: 11/07/23 08:22 Dose: 25 mcg Documented By: HERBERTH Labs 11/04/23 05:24 11/04/23 05:24 Assessment and Plan (1) Small bowel obstruction: Status: Acute (2) Fibromyalgia: Status: Acute (3) Hypertension: Status: Acute Plan d5 58yo F with HTN on surgical service for SBO SBO - s/p laparotomy/MONICA 11/03/23, NGT out yesterday, clears and advance per Surgery HTN - resume lisinopril fibromyalgia - resume duloxetine + cyclobenzaprine mood disorder - resume trazodone + hydroxyzine + duloxetine VTE ppx - UFH Thank you for this consultation. We are signing off the case at this time. Please communicate with us if any new medical questions arise. Total time managing care of this patient today: 35 minutes. Quality Stroke Does the patient have a stroke diagnosis?: No VTE Prior VTE?: No VTE Risk Level:: Medical - moderate - high VTE Device Contraindication: N/A - Device Ordered VTE Drug Contraindication: N/A - Med Ordered
[2023-11-07] MEDS: Morphine Sulfate 4 MG/ML CARTRIDGE IVPUSH (09:52)
--- NOTE | 2023-11-07 10:46 | MHC.CM.PN ---
EMR reviewed. Patient not medically cleared for dc at this time. CM will continue to follow for dc needs.
[2023-11-07] MEDS: oxyCODONE HCl Immed Release 5 MG TABLET PO ×3 (11:08→20:02)
[2023-11-07] MEDS: Heparin Sodium,Porcine 5,000 UNIT/ML VIAL 5000 UNIT SUBCUT ×2 (11:09→22:34)
[2023-11-07] MEDS: ondansetron HCL 4 MG/2 ML VIAL IVPUSH (12:15)
[2023-11-07 12:18] LABS: Glucose, Whole Blood 101 mg/dL (60-115)
--- NOTE | 2023-11-07 12:36 | PC.NURSE ---
MD Christian and MD Ac made aware via tiger text at 12:19 that pt endorsing sudden nausea and appears diaphoretic. Vital signs 98.6, RR 20, HR 100, BP 157/89, o2 93% on room air, blood sugar 101. Pt states she has not vomited, but a little phlegm came up . Pt received PRN IVP Zofran at this time with good effect. MD Christian at bedside to assess pt, no new orders at this time, abd continues to be soft, + bs noted, and pt states she is still passing flatus.
--- NOTE | 2023-11-07 15:55 | PM.EVENT ---
Event Note Date of Service: 11/07/23 Event Note: On afternoon rounds Says she is comfortable Passing flatus Tolerating clear liquids well Abdomen soft She had an episode of severe flushing, diaphoresis and reflux of bile earlier after getting pain medications This had resolved Continues to have stable vital signs Likely to advance diet tomorrow Looks well overall Time Spent With Patient Time: Total time managing care of this patient today ____ minutes.
[2023-11-07] MEDS: hydrOXYzine HCL 50 MG TABLET PO (20:01)
[2023-11-07] MEDS: Cyclobenzaprine HCl 10 MG TABLET PO (20:01)
[2023-11-07] MEDS: traZODone HCL 100 MG TABLET PO (20:02)
[2023-11-08] MEDS: Lactated Ringers 1,000 ML 100 ML IVCONT (00:28)
[2023-11-08 04:00] VITALS: BP 137/95; PULSE 94; RESP 16; TEMP 36.4; O2SAT 92
[2023-11-08 08:00] VITALS: BP 141/80; PULSE 90; RESP 16; TEMP 36.8; O2SAT 92
--- NOTE | 2023-11-08 09:05 | PM.PNGS ---
Subjective Subjective Date of Service: 11/08/23 <Annette Mckeon PA-C - Last Filed: 11/08/23 09:08> 11/08/23 <Sridhar Christian MD - Last Filed: 11/08/23 09:27> Interval history: Some increased incisional pain overnight with increased activity yesterday but overall feels well. Tolerating liquid diet. Continues to pass flatus. <Annette Mckeon PA-C - Last Filed: 11/08/23 09:08> Physical Exam Vital Signs: Vital Signs: Last Vital Signs Temp 98.2 F 11/08/23 08:00 Pulse 90 11/08/23 08:00 Resp 16 11/08/23 08:00 BP 141/80 H 11/08/23 08:00 Pulse Ox 92 11/08/23 08:00 O2 Del Method Room Air 11/08/23 08:00 O2 Flow Rate 2 11/03/23 20:40 BMI result Body Mass Index 25.2 <Annette Mckeon PA-C - Last Filed: 11/08/23 09:08> Const: General: comfortable, no acute distress and alert <Annette Mckeon PA-C - Last Filed: 11/08/23 09:08> Orientation/consciousness: patient oriented x3 <JESSE Rosa Last Filed: 11/08/23 09:08> Resp: Effort & Inspection: normal respiratory effort <JESSE Rosa Last Filed: 11/08/23 09:08> GI: Inspection: Yes distended (mild) and Yes incision (clean, ecchymosis ) <Annette Mckeon PA-C - Last Filed: 11/08/23 09:08> Palpation (GI): Soft to palpation, Tenderness to palpation present (GI) (incisional, increased on right) and no guarding <JESSE Rosa Last Filed: 11/08/23 09:08> Skin: General skin exam: no rashes or lesions noted <JESSE Rosa Last Filed: 11/08/23 09:08> Neuro: General: patient oriented x3 and moves all extremities <JESSE Rosa Last Filed: 11/08/23 09:08> Objective Data Active Medications Acetaminophen (Acetaminophen 325 Mg Tablet) 650 mg PO Q6H PRN PRN Reason: fever, pain Benzocaine (Throat Lozenge, Medicated Lozenge) 1 lozenge MUCOUS MEM Q2H PRN PRN Reason: Sore Throat Last Admin: 11/04/23 12:56 Dose: 1 lozenge Documented By: SAMRA Cyclobenzaprine HCl (Cyclobenzaprine Hcl 10 Mg Tablet) 10 mg PO BEDTIME [facility] Last Admin: 11/07/23 20:01 Dose: 10 mg Documented By: JOSH Duloxetine HCl (Duloxetine Hcl 60 Mg Capsule.Dr) 60 mg PO BID [facility] Last Admin: 11/07/23 20:01 Dose: 60 mg Documented By: JOSH Famotidine (Famotidine/Pf 20 Mg/2 Ml Vial) 20 mg IVPUSH DAILY [facility] Last Admin: 11/07/23 08:22 Dose: 20 mg Documented By: HERBERTH Heparin Sodium (Porcine) (Heparin Sodium,Porcine 5,000 Unit/Ml Vial) 5,000 unit SUBCUT Q12H [facility] Last Admin: 11/07/23 22:34 Dose: 5,000 unit Documented By: PATRICK Hydralazine HCl (Hydralazine Hcl 20 Mg/Ml Vial) 5 mg IVPUSH Q8H PRN; Protocol PRN Reason: for SBP >180 Hydroxyzine HCl (Hydroxyzine Hcl 50 Mg Tablet) 50 mg PO BEDTIME [facility] Last Admin: 11/07/23 20:01 Dose: 50 mg Documented By: JOSH Lisinopril (Lisinopril 5 Mg Tablet) 5 mg PO DAILY [facility]; Protocol Last Admin: 11/07/23 08:22 Dose: 5 mg Documented By: HERBERTH Lorazepam (Lorazepam 2 Mg/Ml Vial) 0.5 mg IVPUSH Q8H PRN PRN Reason: anxiety Morphine Sulfate (Morphine Sulfate 4 Mg/Ml Cartridge) 4 mg IVPUSH Q4H PRN; Protocol PRN Reason: Pain, Severe (Pain Scale 7-10) Last Admin: 11/07/23 09:52 Dose: 4 mg Documented By: HERBERTH Multi-Ingred Medicated Throat [place] (Throat [place], Medicated 177 Ml Bottle) 1 spray MUCOUS MEM Q2H PRN PRN Reason: Sore Throat Last Admin: 11/06/23 12:30 Dose: 1 spray Documented By: BRIAN Multivitamins/Vitamin C (Multivitamin Tablet) 1 tab PO DAILY [facility] Last Admin: 11/07/23 08:22 Dose: 1 tab Documented By: HERBERTH Naloxone HCl (Naloxone Hcl 0.4 Mg/Ml Vial) 0.2 mg IVPUSH Q2M PRN PRN Reason: Excessive sedation or RR < 8 Ondansetron HCl (Ondansetron Hcl 4 Mg/2 Ml Vial) 4 mg IVPUSH Q8H PRN PRN Reason: Nausea Last Admin: 11/07/23 12:15 Dose: 4 mg Documented By: HERBERTH Oxycodone HCl (Oxycodone Hcl Immed Release 5 Mg Tablet) 5 mg PO Q4H PRN PRN Reason: Pain, Moderate(Pain Scale 4-6) Last Admin: 11/07/23 20:02 Dose: 5 mg Documented By: JOSH Sodium Chloride (0.9 % Sodium Chloride Flush 3 Ml Syringe) 3 ml IVFLUSH QSHIFT [facility] Last Admin: 11/08/23 00:28 Dose: Not Given Documented By: CORI Non-Admin Reason: IV Running Trazodone HCl (Trazodone Hcl 100 Mg Tablet) 100 mg PO BEDTIME [facility] Last Admin: 11/07/23 20:02 Dose: 100 mg Documented By: JOSH Vitamin D (Cholecalciferol (Vitamin D3) 25 Mcg Tablet) 25 mcg PO DAILY [facility] Last Admin: 11/07/23 08:22 Dose: 25 mcg Documented By: HERBERTH <Annette Mckeon PA-C - Last Filed: 11/08/23 09:08> Labs CBC & Chem 7: 11/04/23 05:24 11/04/23 05:24 <Annette Mckeon PA-C - Last Filed: 11/08/23 09:08> Labs: Laboratory Results - last 24 hr 11/07/23 12:15 POC Glucose 101 <Annette Mckeon PA-C - Last Filed: 11/08/23 09:08> Microbiology Microbiology Results: Microbiology 11/03/23 02:33 Blood Culture - Final Blood - Venous No growth after 5 days. 11/03/23 02:28 Blood Culture - Final Blood - Venous No growth after 5 days. 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 Doing well post op, with GI function. Abd softly distended, clean incision. Will advance to solid diet. Increase activity. Possible home later today or tomorrow when pain controlled on oral analgesics, tolerating solid diet. Patient comfortable with plan. <Annette Mckeon PA-C - Last Filed: 11/08/23 09:08> Time Spent With Patient Time: Total time managing care of this patient today ____ minutes. <Annette Mckeon PA-C - Last Filed: 11/08/23 09:08> Quality Stroke Does the patient have a stroke diagnosis?: No <Annette Mckeon PA-C - Last Filed: 11/08/23 09:08> VTE Prior VTE?: No <Annette Mckeon PA-C - Last Filed: 11/08/23 09:08> VTE Risk Level:: Medical - moderate - high <Annette Mckeon PA-C - Last Filed: 11/08/23 09:08> VTE Device Contraindication: N/A - Device Ordered <Annette Mckeon PA-C - Last Filed: 11/08/23 09:08> VTE Drug Contraindication: N/A - Med Ordered <Annette Mckeon PA-C - Last Filed: 11/08/23 09:08>
[2023-11-08] MEDS: 0.9 % Sodium Chloride Flush 3 ML SYRINGE IVFLUSH ×3 (09:13→20:10)
[2023-11-08 09:14] VITALS: BP 141/80
[2023-11-08] MEDS: DULoxetine HCl 60 MG CAPSULE.DR PO ×2 (09:14→20:10)
[2023-11-08] MEDS: Cholecalciferol (Vitamin D3) 25 MCG TABLET PO (09:14)
[2023-11-08] MEDS: lisinopriL 5 MG TABLET PO (09:14)
[2023-11-08] MEDS: Multivitamin TABLET 1 TAB PO (09:14)
[2023-11-08] MEDS: Famotidine/PF 20 MG/2 ML VIAL IVPUSH (09:14)
[2023-11-08] MEDS: Heparin Sodium,Porcine 5,000 UNIT/ML VIAL 5000 UNIT SUBCUT ×2 (09:14→20:10)
[2023-11-08] MEDS: oxyCODONE HCl Immed Release 5 MG TABLET PO ×3 (09:22→18:06)
--- NOTE | 2023-11-08 10:43 | PM.CNGS ---
History of Present Illness Consult details Consult date: 11/08/23 Reason for consult: other (SMA aneurysm ) Narrative: Very pleasant 58-year-old female who most recently underwent laparotomy and lysis of adhesions on 11/03/2023 was admitted for our small bowel obstruction and postoperative care. Upon workup was discovered to have an SMA aneurysm. At the current time she appears to be doing extremely well. She reports that she is passing flatus. This morning she was actually tolerating a breakfast of some toast and eggs. Reports no other interval issues. She is doing extremely well. Review of Systems Review of Systems: Yes all other systems are reviewed and are negative Constitutional: Constitutional: Reports no additional constitutional complaints ENT: Reports Normal hearing present Cardiovascular: Cardiovascular: Denies chest pain, Denies chest pain at rest, Denies chest pain with activity and Denies pedal edema Respiratory: Respiratory: Denies cough Gastrointestinal: Gastrointestinal: Denies abdominal pain Musculoskeletal: Musculoskeletal: Denies abnormal gait, Denies muscle cramps and Denies radiating pain into limb Integumentary/Breasts: Skin/Breast: Denies skin ulcer and Denies wounds Neurologic: Reports Normal hearing present and Denies abnormal gait Psychiatric: Psychiatric: Reports no additional psychiatric complaints PMFSH Past Medical History Medical History Small bowel obstruction Cervical disc disease Sciatica Migraine Fibromyalgia Insomnia Anxiety Depression Family History Family History Other Mental health disorder Surgical History Surgical History History of colonoscopy Social History Social History Household Members: None Housing: Apartment Do you presently have visiting nurse or other home services: No Alcohol intake: never Comment: rings appropriately Patient Tobacco Use Status: Former Tobacco user Quit Date: 5 years ago Tobacco use type: Cigarette Smoked in Last 30 Days: No e-Cigarette/Vaping Use: Never Used Second Hand Smoke Exposure: No Use of substances other than those prescribed or required for medical reasons: No Substance Use Type: Marijuana Currently Displaying Signs/Symptoms of Drug Intoxication Withdrawal: No Have you been hit, kicked, punched, or otherwise hurt by someone within the past year? If so, by whom?: No Do you feel safe in your current relationship?: Yes Is there a partner from a previous relationship who is making you feel unsafe now?: No Are you made to feel afraid or neglected: No Gnosticism Healthcare Practices: Pentecostalism Are you DNR?: No Advance Directives: No Advance Directives Information Provided: Yes Advance Directives on File: No Do you have a plan to hurt others: No Plan Recently lost weight without trying: No Nutrition Risks: No Nutritional Risk Patient : No : No Poor oral hygiene: No service: No Current occupational status: disabled Cognitive needs: No Hearing needs: No Vision needs: No Meds Allergies Allergy/AdvReac Type Severity Reaction Status Date / Time celecoxib [From CELEBREX] Allergy Unknown GASTRITIS Verified 11/02/23 20:34 ibuprofen [IBUPROFEN] Allergy Unknown GASTRITIS Verified 11/02/23 20:34 lactose [LACTOSE] Allergy Unknown STOMACH Verified 11/02/23 20:34 UPSET latex [LATEX] Allergy Unknown RASH Verified 11/02/23 20:34 metaxalone [From SKELAXIN] Allergy Unknown GASTRITIS Verified 11/02/23 20:34 NSAIDS (Non-Steroidal Allergy Unknown GASTRITIS Verified 11/02/23 20:34 Anti-Inflamma [NSAIDS] rofecoxib [From VIOXX] Allergy Unknown GASTRITIS Verified 11/02/23 20:34 Active Medications: Current Medications Acetaminophen (Acetaminophen 325 Mg Tablet) 650 mg PO Q6H PRN PRN Reason: fever, pain Benzocaine (Throat Lozenge, Medicated Lozenge) 1 lozenge MUCOUS MEM Q2H PRN PRN Reason: Sore Throat Last Admin: 11/04/23 12:56 Dose: 1 lozenge Cyclobenzaprine HCl (Cyclobenzaprine Hcl 10 Mg Tablet) 10 mg PO BEDTIME [facility] Last Admin: 11/07/23 20:01 Dose: 10 mg Duloxetine HCl (Duloxetine Hcl 60 Mg Capsule.Dr) 60 mg PO BID [facility] Last Admin: 11/08/23 09:14 Dose: 60 mg Famotidine (Famotidine/Pf 20 Mg/2 Ml Vial) 20 mg IVPUSH DAILY [facility] Last Admin: 11/08/23 09:14 Dose: 20 mg Heparin Sodium (Porcine) (Heparin Sodium,Porcine 5,000 Unit/Ml Vial) 5,000 unit SUBCUT Q12H [facility] Last Admin: 11/08/23 09:14 Dose: 5,000 unit Hydralazine HCl (Hydralazine Hcl 20 Mg/Ml Vial) 5 mg IVPUSH Q8H PRN; Protocol PRN Reason: for SBP >180 Hydroxyzine HCl (Hydroxyzine Hcl 50 Mg Tablet) 50 mg PO BEDTIME [facility] Last Admin: 11/07/23 20:01 Dose: 50 mg Lisinopril (Lisinopril 5 Mg Tablet) 5 mg PO DAILY [facility]; Protocol Last Admin: 11/08/23 09:14 Dose: 5 mg Lorazepam (Lorazepam 2 Mg/Ml Vial) 0.5 mg IVPUSH Q8H PRN PRN Reason: anxiety Morphine Sulfate (Morphine Sulfate 4 Mg/Ml Cartridge) 4 mg IVPUSH Q4H PRN; Protocol PRN Reason: Pain, Severe (Pain Scale 7-10) Last Admin: 11/07/23 09:52 Dose: 4 mg Multi-Ingred Medicated Throat [place] (Throat [place], Medicated 177 Ml Bottle) 1 spray MUCOUS MEM Q2H PRN PRN Reason: Sore Throat Last Admin: 11/06/23 12:30 Dose: 1 spray Multivitamins/Vitamin C (Multivitamin Tablet) 1 tab PO DAILY [facility] Last Admin: 11/08/23 09:14 Dose: 1 tab Naloxone HCl (Naloxone Hcl 0.4 Mg/Ml Vial) 0.2 mg IVPUSH Q2M PRN PRN Reason: Excessive sedation or RR < 8 Ondansetron HCl (Ondansetron Hcl 4 Mg/2 Ml Vial) 4 mg IVPUSH Q8H PRN PRN Reason: Nausea Last Admin: 11/07/23 12:15 Dose: 4 mg Oxycodone HCl (Oxycodone Hcl Immed Release 5 Mg Tablet) 5 mg PO Q4H PRN PRN Reason: Pain, Moderate(Pain Scale 4-6) Last Admin: 11/08/23 09:22 Dose: 5 mg Sodium Chloride (0.9 % Sodium Chloride Flush 3 Ml Syringe) 3 ml IVFLUSH QSHIFT [facility] Last Admin: 11/08/23 09:13 Dose: 3 ml Trazodone HCl (Trazodone Hcl 100 Mg Tablet) 100 mg PO BEDTIME [facility] Last Admin: 11/07/23 20:02 Dose: 100 mg Vitamin D (Cholecalciferol (Vitamin D3) 25 Mcg Tablet) 25 mcg PO DAILY [facility] Last Admin: 11/08/23 09:14 Dose: 25 mcg Home Medications ?Medication ?Instructions ?Recorded ?Confirmed ?Last Taken ?Type acetaminophen 650 mg 650 mg PO Q12H 10/26/23 11/03/23 Unknown History tablet,extended release (Tylenol Arthritis Pain) cholecalciferol (vitamin D3) 25 25 mcg PO DAILY 10/26/23 11/03/23 Unknown History mcg (1,000 unit) capsule docusate sodium 100 mg capsule 100 mg PO DAILY 10/26/23 11/03/23 Unknown History (Colace) lisinopril 10 mg tablet 5 mg PO DAILY 11/03/23 11/03/23 Unknown History trazodone 50 mg tablet 100 mg PO BEDTIME 11/03/23 11/03/23 Unknown History Physical Exam Vital Signs: Vital Signs: Last Vital Signs Temp 98.2 F 11/08/23 08:00 Pulse 90 11/08/23 08:00 Resp 16 11/08/23 08:00 BP 141/80 H 11/08/23 09:14 Pulse Ox 92 11/08/23 08:00 O2 Del Method Room Air 11/08/23 08:00 O2 Flow Rate 2 11/03/23 20:40 BMI result Body Mass Index 25.2 Const: General: cooperative, healthy appearing and comfortable Orientation/consciousness: oriented to person, oriented to place and oriented to time HEENT: Head: Yes normal to inspection Neck: Neck: Yes normal visual inspection Carotids: no bruits Chest: Chest palpation & inspection: normal inspection of the chest Resp: Effort & Inspection: normal respiratory effort and able to speak in complete sentences Auscultation: clear to auscultation bilaterally, no crackles, no rales, no rhonchi and no wheezes Cardio: Rate: regular rate Rhythm: regular rhythm Heart sounds: S1 normal heart sound present and S2 normal heart sound present Bruits: no carotid bruits Peripheral pulses: Peripheral pulses 2+ throughout GI: Inspection: Yes normal to inspection Skin: Other: Incision healing well, abdomen soft Wounds: no wounds Hair: normal Neuro: General: oriented to person, oriented to place and oriented to time Cranial nerves: Yes CN's II-XII intact bilaterally and Yes Normal hearing present Cognition (Neuro): normal cognition Motor exam (neuro): 5/5 motor strength present throughout Extrem: Other: venous exam: No significant superficial varicosities or spider telangiectasias, minimal edema General: No clubbing, No cyanosis and No edema Psych: Appearance: grossly normal Mental Status: mental status grossly normal Speech and movement: Normal speech and movement present Results Labs 11/04/23 05:24 11/04/23 05:24 Labs: Urine 11/02/23 Range/Units 22:34 Urine Color Yellow Urine Appearance Clear Urine pH 5.5 (5.0-9.0) Ur Specific [place] 1.025 (1.005-1.025) Urine Protein 100 (2+) H (Neg-Trace) mg/dL Urine Glucose (UA) Negative (Negative) mg/dL All other labs normal. 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 It measures only about 1.7 cm and is calcified ring. There is appropriate flow through the vessel. It does appear chronic in nature and stable. At the current time no intervention indicated. Stable from my perspective. Stable for discharge. She can follow up with us on an as-needed basis. Thank you for allowing us to assist in her care. If there are any questions or concerns please do not hesitate to contact us Procedures Date of Service Date of Service: 11/08/23
[2023-11-08 15:02] VITALS: BP 133/86; PULSE 102; RESP 18; TEMP 36.3; O2SAT 94
[2023-11-08 19:06] VITALS: BP 155/90; PULSE 108; RESP 18; TEMP 36.2; O2SAT 94
[2023-11-08] MEDS: traZODone HCL 100 MG TABLET PO (20:10)
[2023-11-08] MEDS: hydrOXYzine HCL 50 MG TABLET PO (20:10)
[2023-11-08] MEDS: Cyclobenzaprine HCl 10 MG TABLET PO (20:17)
[2023-11-09 03:20] VITALS: BP 127/83; PULSE 92; RESP 16; TEMP 36.2; O2SAT 92
[2023-11-09] MEDS: oxyCODONE HCl Immed Release 5 MG TABLET PO ×2 (03:43→08:31)
[2023-11-09 07:31] VITALS: BP 132/83; PULSE 91; RESP 16; TEMP 36.2; O2SAT 94
--- NOTE | 2023-11-09 08:18 | PM.PNGS ---
Subjective Subjective Date of Service: 11/09/23 Interval history: Tolerating regular diet well Feels well Minimal pain Passing flatus and BMs Physical Exam Vital Signs: Vital Signs: Last Vital Signs Temp 97.1 F 11/09/23 07:31 Pulse 91 11/09/23 07:31 Resp 16 11/09/23 07:31 BP 132/83 11/09/23 07:31 Pulse Ox 94 11/09/23 07:31 O2 Del Method Room Air 11/09/23 07:31 O2 Flow Rate 2 11/03/23 20:40 BMI result Body Mass Index 25.2 Const: General: comfortable and no acute distress Resp: Effort & Inspection: normal respiratory effort Cardio: Rate: regular rate GI: Other: Incision clean and dry tenderness appropriate to postop course Palpation (GI): Soft to palpation, not firm and no guarding Objective Data Active Medications Acetaminophen (Acetaminophen 325 Mg Tablet) 650 mg PO Q6H PRN PRN Reason: fever, pain Benzocaine (Throat Lozenge, Medicated Lozenge) 1 lozenge MUCOUS MEM Q2H PRN PRN Reason: Sore Throat Last Admin: 11/04/23 12:56 Dose: 1 lozenge Documented By: SAMRA Cyclobenzaprine HCl (Cyclobenzaprine Hcl 10 Mg Tablet) 10 mg PO BEDTIME [facility] Last Admin: 11/08/23 20:17 Dose: 10 mg Documented By: HILL Duloxetine HCl (Duloxetine Hcl 60 Mg Capsule.Dr) 60 mg PO BID [facility] Last Admin: 11/08/23 20:10 Dose: 60 mg Documented By: HILL Famotidine (Famotidine/Pf 20 Mg/2 Ml Vial) 20 mg IVPUSH DAILY [facility] Last Admin: 11/08/23 09:14 Dose: 20 mg Documented By: HERBERTH Heparin Sodium (Porcine) (Heparin Sodium,Porcine 5,000 Unit/Ml Vial) 5,000 unit SUBCUT Q12H [facility] Last Admin: 11/08/23 20:10 Dose: 5,000 unit Documented By: HILL Hydralazine HCl (Hydralazine Hcl 20 Mg/Ml Vial) 5 mg IVPUSH Q8H PRN; Protocol PRN Reason: for SBP >180 Hydroxyzine HCl (Hydroxyzine Hcl 50 Mg Tablet) 50 mg PO BEDTIME [facility] Last Admin: 11/08/23 20:10 Dose: 50 mg Documented By: ANTOSCAR Lisinopril (Lisinopril 5 Mg Tablet) 5 mg PO DAILY [facility]; Protocol Last Admin: 11/08/23 09:14 Dose: 5 mg Documented By: HERBERTH Lorazepam (Lorazepam 2 Mg/Ml Vial) 0.5 mg IVPUSH Q8H PRN PRN Reason: anxiety Morphine Sulfate (Morphine Sulfate 4 Mg/Ml Cartridge) 4 mg IVPUSH Q4H PRN; Protocol PRN Reason: Pain, Severe (Pain Scale 7-10) Last Admin: 11/07/23 09:52 Dose: 4 mg Documented By: HERBERTH Multi-Ingred Medicated Throat [place] (Throat [place], Medicated 177 Ml Bottle) 1 spray MUCOUS MEM Q2H PRN PRN Reason: Sore Throat Last Admin: 11/06/23 12:30 Dose: 1 spray Documented By: BRIAN Multivitamins/Vitamin C (Multivitamin Tablet) 1 tab PO DAILY [facility] Last Admin: 11/08/23 09:14 Dose: 1 tab Documented By: HERBERTH Naloxone HCl (Naloxone Hcl 0.4 Mg/Ml Vial) 0.2 mg IVPUSH Q2M PRN PRN Reason: Excessive sedation or RR < 8 Ondansetron HCl (Ondansetron Hcl 4 Mg/2 Ml Vial) 4 mg IVPUSH Q8H PRN PRN Reason: Nausea Last Admin: 11/07/23 12:15 Dose: 4 mg Documented By: HERBERTH Oxycodone HCl (Oxycodone Hcl Immed Release 5 Mg Tablet) 5 mg PO Q4H PRN PRN Reason: Pain, Moderate(Pain Scale 4-6) Last Admin: 11/09/23 03:43 Dose: 5 mg Documented By: ANTOSCAR Sodium Chloride (0.9 % Sodium Chloride Flush 3 Ml Syringe) 3 ml IVFLUSH QSHIFT [facility] Last Admin: 11/08/23 20:10 Dose: 3 ml Documented By: HILL Trazodone HCl (Trazodone Hcl 100 Mg Tablet) 100 mg PO BEDTIME [facility] Last Admin: 11/08/23 20:10 Dose: 100 mg Documented By: HILL Vitamin D (Cholecalciferol (Vitamin D3) 25 Mcg Tablet) 25 mcg PO DAILY [facility] Last Admin: 11/08/23 09:14 Dose: 25 mcg Documented By: HERBERTH Labs 11/04/23 05:24 11/04/23 05:24 Microbiology Microbiology Results: Microbiology 11/03/23 02:33 Blood Culture - Final Blood - Venous No growth after 5 days. 11/03/23 02:28 Blood Culture - Final Blood - Venous No growth after 5 days. Procedures Date of Service Date of Service: 11/09/23 Progress Note: A&P Assessment and plan (1) Small bowel obstruction: Status: Acute Assessment and Plan: Status post laparotomy with extensive lysis of adhesions Doing very well Good GI functions Abdomen soft and benign Okay DC home today Instructions reinforced with patient Seen by Dr. Kim lomas SMA aneurysm with thrombus - no intervention for now Time Spent With Patient Time: Total time managing care of this patient today ____ minutes. Quality Stroke Does the patient have a stroke diagnosis?: No VTE Prior VTE?: No VTE Risk Level:: Medical - moderate - high VTE Device Contraindication: N/A - Device Ordered VTE Drug Contraindication: N/A - Med Ordered
--- NOTE | 2023-11-09 08:21 | MHC.CM.PN ---
EMR reviewed. Patient medically cleared for dc home self care. Partner will provide transport home at 12pm. RN aware.
[2023-11-09 08:31] VITALS: BP 132/83
[2023-11-09] MEDS: DULoxetine HCl 60 MG CAPSULE.DR PO (08:31)
[2023-11-09] MEDS: lisinopriL 5 MG TABLET PO (08:31)
[2023-11-09] MEDS: Multivitamin TABLET 1 TAB PO (08:31)
[2023-11-09] MEDS: Famotidine/PF 20 MG/2 ML VIAL IVPUSH (08:31)
[2023-11-09] MEDS: Cholecalciferol (Vitamin D3) 25 MCG TABLET PO (08:31)
[2023-11-09] MEDS: 0.9 % Sodium Chloride Flush 3 ML SYRINGE IVFLUSH (08:31)
--- NOTE | 2023-11-09 09:56 | P.DS_ITS ---
DS: Providers Provider Date of Service: 11/09/23 Date of admission: 11/03/23 08:03 Date of discharge: 11/09/23 Primary care physician: Kian Schultz MD Attending physician on admission: Sridhar Christian Consults: 11/03/23 14:59 Consult to Hospitalist Routine Comment: Consulting Provider: Hospitalist Reason For Exam: HTN 11/08/23 07:24 Consult to Vascular Surgery Routine Consulting Provider: [facility] Reason for consultation: SMA aneurysm with thrombus Attending physician on discharge: Sridhar Christian DS: Diagnosis Discharge Diagnosis (1) Small bowel obstruction: Status: Acute DS: Summary Hospital Course Hospital Course: HPI AT ADMISSION: She Phylicia Reilly is a 58 year old female with polymyalgia, here in the ER because of abdominal pain and vomiting for 2-3 days. She says that this started with a lot of ?burping?. She also describes some loose stools at that time. She continued to have abdominal pain and vomiting so she came to the emergency room last night. She describes the pain as mostly in the mid abdomen but is diffuse. She has a history of hysterectomy in the distant past. She ad mits to being a smoker. She says she has passed some flatus overnight. CT scan consistent with small-bowel obstruction likely from an internal hernia with note of swirling of the mesentery in the right abdomen on the involved small bowel loops. HOSPITAL COURSE: She was admitted to the surgical service for further treatment of the SBO. It was recommended to proceed with laparotomy with possible small bowel resection given the presence of internal hernia. She agreed. She was added onto the OR schedule for that day. On 11/03/23, laparotomy, extensive lysis of adhesions was performed by Dr. Christiano delvalle without complication. She was found to have a small bowel obstruction, internal hernia with extensive adhesions. The patient tolerated the procedure well. She had an uneventful but slow recovery course. She was started on a morphine RETAIL MANAGEMENT KEYHOLDER pump post operatively for pain. Her michel was removed on POD #1. She continued to have significant distention and nausea until POD #3 when she began to pass flatus consistently and her NGT was therefore removed and started on sips of water. Her activitiy was increased. Her RETAIL MANAGEMENT KEYHOLDER was discontinued and she was transitioned to IV and oral PRN analgesics. Her diet was advanced to clear liquids and then solids. She continued to pass consistent flatus and had a small BM. Her pain became better controlled on oral analgesics. She was ambulating without difficulty. Her abdomen remained benign with clean incision and soft distention with mild tenderness. She was discharged to home on 11/09/23 in stable condition. She is to follow up in the office in 2 weeks. 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 Vascular surgery was consulted who felt there was appropriate flow through the vessel and it appeared chronic in nature and stablewith no current intervention indicated. Can f/u on as needed basis. Status at Discharge Functional status at discharge: independent ambulation Overall status at discharge: patient is progressing back to baseline Time Attestation Discharge Coordination Time (in mins): 45 Quality: Safe Use of Opioids Does Pt have an Active Cancer Diagnosis on the Problem List?: No Quality: Stroke Does the patient have a stroke diagnosis?: No Physical Exam Vital Signs: Vital Signs: Last Vital Signs Temp 97.1 F 11/09/23 07:31 Pulse 91 11/09/23 07:31 Resp 16 11/09/23 07:31 BP 132/83 11/09/23 08:31 Pulse Ox 94 11/09/23 07:31 O2 Del Method Room Air 11/09/23 07:31 O2 Flow Rate 2 11/03/23 20:40 BMI result Body Mass Index 25.2 Const: General: comfortable, no acute distress and alert Orientation/consciousness: patient oriented x3 Resp: Effort & Inspection: normal respiratory effort GI: Inspection: Yes distended (mild ) and Yes incision (clean, ecchymosis centrally ) Palpation (GI): Soft to palpation and Tenderness to palpation present (GI) (mild incisional) Skin: General skin exam: no rashes or lesions noted Neuro: General: patient oriented x3 and moves all extremities Discharge Plan Discharge Anticipated Discharge Date/Time: 11/09/23 10:13 Patient Disposition: Home, Self-Care Discharge Diagnosis: SBO, s/p ex lap, lysis of adhesions Referrals: Kian Schultz MD [Primary Care Provider] - 1 Week Sridhar Christian MD [Physician] - 2 Weeks Discharge Medications: New oxycodone 5 mg tablet 5 mg PO Q4H PRN (Reason: pain) Qty: 25 0RF Rx Instructions: Partial Fill upon patient request. Continued multivitamin with folic acid [Daily-Malick (with folic acid)] 400 mcg tablet 1 tab PO DAILY Qty: 90 3RF hydroxyzine HCl 50 mg tablet 50 mg PO BEDTIME Qty: 90 1RF diclofenac sodium 1 % gel 4 g topical QID 30 Days Qty: 200 2RF cyclobenzaprine 10 mg tablet 10 mg PO BEDTIME Qty: 20 0RF trazodone 50 mg tablet 100 mg PO BEDTIME lisinopril 10 mg tablet 5 mg PO DAILY (DME) blood pressure monitor Kit See Rx Instructions .Route Qty: 1 0RF Rx Instructions: As directed cholecalciferol (vitamin D3) 25 mcg (1,000 unit) capsule 25 mcg PO DAILY docusate sodium [Colace] 100 mg capsule 100 mg PO DAILY acetaminophen [Tylenol Arthritis Pain] 650 mg tablet extended release 650 mg PO Q12H Rx Instructions: for joint pain/ neck and back pain (DME) Blood Pressure Cuff Misc See Rx Instructions .ROUTE .MEDSUPPLY Qty: 1 0RF Rx Instructions: As directed duloxetine [Cymbalta] 60 mg capsule,delayed release(DR/EC) 60 mg PO BID 90 Days Qty: 180 2RF Discharge Orders: Discharge Order (Routine); Ordered 11/09/23 Ordered By: Sridhar Christian Diet: Advance to usual diet Activity on Discharge: No heavy lifting Stand Alone Forms: Patient Portal Discharge page Print Language: Japanese Activity Restrictions/Additional Instructions: If the incision area is tender, you may apply an ice pack for short intervals (No more than 20 minutes on, followed by at least 20 minutes off). Do not apply heat. Do not use creams, lotions, or topical antibiotics. These can cause infection or allergic reaction. Ok to shower. You have nargis closing your incision and these will be removed approximately 10-14 days after surgery. NO HEAVY LIFTING (>10lbs) or strenuous activity. Follow up in office. ([phone]) Call Your Doctor If: -Your temperature exceeds 101.5? F -You experience excessive pain or swelling -You have an unexpected reaction to medication -You have excessive bleeding -You experience continued vomiting/nausea -Your incision begins to separate -Your incision shows signs of infection such as increased redness, swelling, excessive pain, drainage (light blood or clear fluid is normal) or heat Care Plan Goals: Return to baseline health and resume normal activities following recovery period. Health Concerns: SBO HTN Plan of Treatment: s/p laparotomy, lysis of adhesions pain control f/u in office in 2 weeks no heavy lifting Assessment: Doing well post op.
== END 2023-11-09 10:55 | disposition home or self-care (01) | DRG 337 ==
LOC: HO.ED 11-03 07:39 → HO.EDOVER 11-03 08:07 → HO.S3 11-03 14:44
PROVIDERS: Physician Assistant Medical; Physician Assistant Surgical; Student in an Organized Health Care Education/Training Program; Admitting Provider Surgery; Emergency Provider Emergency Medicine; PCP Family Medicine; Visit Provider Surgery
PROC: 0DNW0ZZ Release Peritoneum, Open Approach (ICD-10-PCS; CPT 49000; principal; 2023-11-03 11:00)
DX: K56.51 Intestinal adhesions [bands], with partial obstruction (principal); M79.7 Fibromyalgia; I10 Essential (primary) hypertension; K56.7 Ileus, unspecified; I72.8 Aneurysm of other specified arteries; F41.9 Anxiety disorder, unspecified; F32.A Depression, unspecified; K43.2 Incisional hernia without obstruction or gangrene; Z20.822 Contact with and (suspected) exposure to COVID-19; Z87.891 Personal history of nicotine dependence; Z91.040 Latex allergy status; Z79.899 Other long term (current) drug therapy
CPT/HCPCS: 0241U; 36415; 74177; 80048; 80053; 80307; 81001; 82947; 83605; 83690; 83735; 85025; 86850; 86900; 86901; 87040; 87086; 87147; 99284; C1758; J0131; J0330; J0690; J1100; J1170; J1644; J2270; J2405; J2543; J2550; J2704; J2795; J3010; J7120; Q9967

== ENCOUNTER → 2023-11-03 08:03 | Outpatient (BNV) | payer OTHER, SELFPAY | PROVIDERS: Admitting Provider Surgery; Emergency Provider Emergency Medicine; PCP Family Medicine; Visit Provider Physician Assistant Surgical | DX: K56.609 Unspecified intestinal obstruction, unspecified as to partial versus complete obstruction (principal) | CPT/HCPCS: 44005; 99024; 99499 ==

== ENCOUNTER → 2023-11-03 08:03 | Outpatient (BNV) | payer OTHER, SELFPAY | PROVIDERS: Admitting Provider Surgery; Emergency Provider Emergency Medicine; PCP Family Medicine; Visit Provider Surgery Vascular Surgery | DX: I72.8 Aneurysm of other specified arteries (principal) | CPT/HCPCS: 99222 ==

== ENCOUNTER → 2023-11-03 08:03 | Outpatient (BNV) | payer OTHER, SELFPAY | PROVIDERS: Admitting Provider Surgery; Emergency Provider Emergency Medicine; PCP Family Medicine; Visit Provider Hospitalist | DX: K56.609 Unspecified intestinal obstruction, unspecified as to partial versus complete obstruction (principal); M79.7 Fibromyalgia; I10 Essential (primary) hypertension | CPT/HCPCS: 99222; 99232 ==

== ENCOUNTER → 2023-11-03 08:03 | Outpatient (BNV) | payer OTHER, SELFPAY | PROVIDERS: Admitting Provider Surgery; Emergency Provider Emergency Medicine; PCP Family Medicine; Visit Provider Surgery | DX: K56.609 Unspecified intestinal obstruction, unspecified as to partial versus complete obstruction (principal) | CPT/HCPCS: 99499 ==

== ENCOUNTER 2023-11-28 13:03 | Outpatient (AMB) | payer OTHER, SELFPAY ==
--- NOTE | 2023-11-28 13:19 | A.OFFVIS_ITS ---
Vital Signs 11/28/23 13:24 Height 5 ft Weight 128 lb BMI 25.0 BP 140/82 H Blood Pressure Location Lt brachial Position Sitting Intake Visit Reasons: laparotomy Intake Note: This patient presents for a post-op assessment status post Laparotomy, extensive lysis of adhesions. Patient c/o; admits to sore and tender in the area, sutures removed at visit Surgery date: 11/03/2023 Allergies celecoxib [From CELEBREX] Allergy (Unknown, Verified 11/02/23 20:34) GASTRITIS ibuprofen [IBUPROFEN] Allergy (Unknown, Verified 11/02/23 20:34) GASTRITIS lactose [LACTOSE] Allergy (Unknown, Verified 11/02/23 20:34) STOMACH UPSET latex [LATEX] Allergy (Unknown, Verified 11/02/23 20:34) RASH metaxalone [From SKELAXIN] Allergy (Unknown, Verified 11/02/23 20:34) GASTRITIS NSAIDS (Non-Steroidal Anti-Inflamma [NSAIDS] Allergy (Unknown, Verified 11/02/23 20:34) GASTRITIS rofecoxib [From VIOXX] Allergy (Unknown, Verified 11/02/23 20:34) GASTRITIS HPI HPI laparotomy: Details: 58-year-old female here for follow-up postop. She would undergone laparotomy, extensive lysis of adhesions for small-bowel obstruction last 11/03/2023. She tolerated the procedure well. She was discharged on November 08 She feels well overall. She has good GI functions. [facility] Medical History (Updated 11/28/23 @ 13:37 by Sridhar Christian MD) Small bowel obstruction Cervical disc disease Sciatica Migraine Fibromyalgia Insomnia Anxiety Depression Surgical History History of laparotomy (11/03/23) History of colonoscopy Family History Other Mental health disorder Social History Household Members: None Housing: Apartment Do you presently have visiting nurse or other home services: No Alcohol intake: never Comment: rings appropriately Patient Tobacco Use Status: Former Tobacco user Tobacco use type: Cigarette e-Cigarette/Vaping Use: Never Used Second Hand Smoke Exposure: No Substance Use Type: Marijuana service: No Current occupational status: disabled Cognitive needs: No Hearing needs: No Vision needs: No Review of Systems Const Denies chills and Denies fever(s) Card Denies chest pain, Denies dyspnea and Denies dyspnea on exertion Resp Denies cough, Denies dyspnea and Denies dyspnea on exertion GI Denies hematochezia and Denies change in bowel habits Denies hematuria Musc Denies back pain and Denies limited range of motion Neuro Denies focal weakness and Denies convulsions Psych Denies depression and Denies mood swings Physical Exam Vital Signs: Last Vital Signs BP 140/82 H 11/28/23 13:24 BMI result Body Mass Index 25.0 Const General: comfortable and no acute distress Resp Effort & Inspection: normal respiratory effort GI Other: Incision clean and dry and well healed Palpation (GI): Soft to palpation, not firm, nontender and no guarding Assessment & Plan Assessment & Plan (1) Small bowel obstruction: Code(s): K56.609 - Unspecified intestinal obstruction, unspecified as to partial versus complete obstruction Category: Medical Plan: Status post laparotomy and extensive lysis of adhesions. She is doing well postoperatively. Her incision is well healed. She has good GI functions. I advised her to avoid lifting anything more than 20 lb for at least 2 more weeks. She can follow up on a p.r.n. basis. Coding Level of Care Code Global (84550) Diagnoses Small bowel obstruction K56.609
[2023-11-28 13:24] VITALS: BP 140/82; BMI 25.0
== END 2023-11-28 13:42 | disposition home or self-care (01) ==
PROVIDERS: PCP Family Medicine; Visit Provider Surgery
DX: K56.609 Unspecified intestinal obstruction, unspecified as to partial versus complete obstruction (principal)
CPT/HCPCS: 99024

== ENCOUNTER → 2023-11-28 13:03 | Outpatient (BNVA) | payer OTHER, SELFPAY | PROVIDERS: PCP Family Medicine; Visit Provider Surgery | DX: K56.50 Intestinal adhesions [bands], unspecified as to partial versus complete obstruction (principal) | CPT/HCPCS: 99212 ==

== ENCOUNTER 2023-12-07 11:20 | Outpatient (AMB) | payer OTHER, SELFPAY ==
[2023-12-07 11:58] VITALS: BP 134/88; PULSE 100; RESP 14; TEMP 36.4; O2SAT 97; BMI 24.9
--- NOTE | 2023-12-07 11:58 | A.OFFPC_ITS ---
Vital Signs 12/07/23 11:58 Height 5 ft Weight 127 lb 6 oz BMI 24.9 BP 134/88 Blood Pressure Location Rt brachial Position Sitting Respiration 14 Pulse 100 Pulse Source Pulse Oximeter Temp 97.6 F Temp Source Temporal Artery Scan Pulse Oximetry (%) 97 Oxygen Delivery Method Room Air Intake Visit Reasons: F/U emergency surgery Intake Note: Report and labs in patient charts. Manager Of Training And Development Required: No Accompanied by: Self / Same As Patient Allergies celecoxib [From CELEBREX] Allergy (Unknown, Verified 12/07/23 12:03) GASTRITIS ibuprofen [IBUPROFEN] Allergy (Unknown, Verified 12/07/23 12:03) GASTRITIS lactose [LACTOSE] Allergy (Unknown, Verified 12/07/23 12:03) STOMACH UPSET latex [LATEX] Allergy (Unknown, Verified 12/07/23 12:03) RASH metaxalone [From SKELAXIN] Allergy (Unknown, Verified 12/07/23 12:03) GASTRITIS NSAIDS (Non-Steroidal Anti-Inflamma [NSAIDS] Allergy (Unknown, Verified 12/07/23 12:03) GASTRITIS rofecoxib [From VIOXX] Allergy (Unknown, Verified 12/07/23 12:03) GASTRITIS Tobacco use date assessed: 10/26/23 Dental Screening Dental Screen Date: 10/26/23 HPI F/U emergency surgery HPI Details 58 y/o female presents to f/u chronic co nditions. She had been found to have a small bowel obstruction with internal hernia with extensive adhesions. Laparotomy, extensive lysis of adhesions performed by Dr. Christian on 11/03/23 without complication. Pt reports ongoing chills but denies any fevers. She is eating well and feels her wound is improving day by day. [facility] Medical History Small bowel obstruction Cervical disc disease Sciatica Migraine Fibromyalgia Insomnia Anxiety Depression Surgical History History of laparotomy (11/03/23) History of colonoscopy Family History Other Mental health disorder Social History Household Members: None Housing: Apartment Do you presently have visiting nurse or other home services: No Alcohol intake: never Comment: rings appropriately Patient Tobacco Use Status: Former Tobacco user Tobacco use type: Cigarette e-Cigarette/Vaping Use: Never Used Second Hand Smoke Exposure: No Substance Use Type: Marijuana service: No Current occupational status: disabled Cognitive needs: No Hearing needs: No Vision needs: No Questionnaire Thrive Questionnaire Date Thrive assessed: 11/04/23 WILBER-7 AMB Questionnaire WILBER-7 Date WILBER - 7 assessed: 06/30/23 Source: Developed by Drs. Wilfredo Yeung, Mallory Cornelius, Markos Calderon and colleagues, with an educational wolf from [employer]. Review of Systems Const Reports chills, Denies fatigue, Denies fever(s), Denies headache(s) and Denies weakness ENT Denies dizziness and Denies headache(s) Card Denies dyspnea Resp Denies cough, Denies dyspnea, Denies wheezing and Denies other (shortness of breath) Musc Denies numbness and Denies tingling Neuro Denies dizziness, Denies headache(s), Denies numbness, Denies tingling and Denies weakness Psych Denies anxiety and Denies depression Endo Denies fatigue Aller/Immun Denies wheezing Physical exam (Primary Care) Vital Signs: Last Vital Signs Temp 97.6 F 12/07/23 11:58 Pulse 100 12/07/23 11:58 Resp 14 12/07/23 11:58 BP 134/88 12/07/23 11:58 Pulse Ox 97 12/07/23 11:58 Oxygen Delivery Method Room Air 12/07/23 11:58 BMI result Body Mass Index 24.9 Tobacco/Smoking Status: Tobacco use Status Tobacco use date assessed 10/26/23 12/07/23 12:02 Patient Tobacco Use Status Former Tobacco user 12/07/23 12:02 Tobacco use type Cigarette 12/07/23 12:02 e-Cigarette/Vaping Use Never Used 12/07/23 12:02 Thrive Assessment: Date of Thrive Assessment Date Thrive assessed 11/04/23 12/07/23 12:02 Const General: well developed; No acute distress Nutritional Appearance: well nourished Orientation/consciousness: patient oriented x3 HENMT Head: Yes normocephalic and Yes atraumatic Eyes General: appearance normal, both eyes and all related structures Pupils: Equal, round and reactive pupils present EOM: EOMs intact bilaterally Resp Effort & Inspection: normal respiratory effort Auscultation: clear to auscultation bilaterally Cardio Rate: regular rate Rhythm: regular rhythm Heart sounds: S1 normal heart sound present, S2 normal heart sound present, no gallops, no murmurs and no rubs Neuro General: patient oriented x3 and gait normal Cranial nerves: Yes Equal, round and reactive pupils present Psych Affect: normal affect Results AMB Urinalysis, Automated UA Leukoctes 0 [place]/uL Last Edit by Sonya Donohue CMA on 12/07/23 12:55 UA Nitrite Negative Last Edit by Sonya Donohue CMA on 12/07/23 12:55 UA Urobilinogen 3.5 mg/dL Last Edit by Sonya Donohue, BLADE on 12/07/23 12:55 UA Protein 15 mg/dL Last Edit by Sonya Donohue, BLADE on 12/07/23 12:55 UA pH 6.0 Last Edit by Sonya Donohue, BLADE on 12/07/23 12:55 UA Blood 0 Carl/uL Last Edit by Sonya Donohue CMA on 12/07/23 12:55 UA Specific [place] 1.025 Last Edit by Sonya Donohue CMA on 12/07/23 12:5 5 UA Ketone Negative Last Edit by Sonya Donohue CMA on 12/07/23 12:55 UA Bilirubin 0 mg/dL Last Edit by Sonya Donohue CMA on 12/07/23 12:55 UA Glucose 0 mg/dL Last Edit by Sonya Donohue CMA on 12/07/23 12:55 Assessment and Plan Assessment & Plan (1) Small bowel obstruction: Code(s): K56.609 - Unspecified intestinal obstruction, unspecified as to partial versus complete obstruction Plan: Discharge Diagnosis: SBO, s/p ex lap, lysis of adhesions Has?had?follow-up?with? Wound?is?healing?well.??Discomfort?is?improving?day?by?day She?does?note?some?chills?but?no?fever?and?is?concern?regarding?urinary?tract?in fection.??Urine?dip?is?not?convincing?for?a?U TI?but?I?am?sending?this?for?urinalysis??and?culture?at?hospital?lab - will?start?antibiotic?if?concerning?for?UTI. She?will?call?or?return?to?office?if?any?fevers?or?worsening?pain?or?other?kee rning?symptoms.??She?can?also?call?her?surgeon. (2) Superior mesenteric artery aneurysm: Code(s): I72.8 - Aneurysm of other specified arteries Plan: Patient?was?referred?to?vascular?surgeon in?house No?further?follow-up?required Orders: Orders UA CC w/rflx Micro + Cult Today N39.0 - Urinary tract infection, site not specified AMB Urinalysis Automated Today N39.0 - Urinary tract infection, site not specified Coding Level of Care Code Est Pt Level 3 (80446) Diagnoses Small bowel obstruction K56.609 Superior mesenteric artery aneurysm I72.8
== END 2023-12-07 12:59 | disposition home or self-care (01) ==
PROVIDERS: PCP Family Medicine; Visit Provider Family Medicine
DX: K56.609 Unspecified intestinal obstruction, unspecified as to partial versus complete obstruction (principal); I72.8 Aneurysm of other specified arteries; N39.0 Urinary tract infection, site not specified
CPT/HCPCS: 81003; 99213

== ENCOUNTER 2023-12-07 12:44 | Outpatient (REF) | payer OTHER, SELFPAY ==
[2023-12-07 14:52] LABS: Appearance Urine Clear; Color Urine Yellow; Glucose Urine UA Negative (Negative); Leukocyte Esterase Urine Negative (Negative); Nitrite Urine Negative (Negative); Specific Gravity - Urine 1.025 (1.005-1.025); Urine Blood Negative (Negative); Urine Ketones Negative (Negative); Urine Protein Negative (Neg-Trace)
[2023-12-07 15:23] LABS: Creatinine Urine 206.07 mg/dL; Microalbum/Creatinine Ratio Ur 9.7 ug/mg cr (<30)
== END 2023-12-07 12:45 | disposition home or self-care (01) ==
LOC: HO.LAB 12:44
PROVIDERS: Visit Provider Family Medicine
DX: I10 Essential (primary) hypertension (principal); N39.0 Urinary tract infection, site not specified; R68.83 Chills (without fever)
CPT/HCPCS: 81003; 82043; 82570; 87086

== ENCOUNTER 2024-01-05 06:01 | Outpatient (REF) | payer OTHER, SELFPAY ==
[2024-01-05 10:09] LABS: MANUAL DIFF FLAG NO
[2024-01-05 10:19] LABS: Basophils Absolute Auto 0.1 X10*3/uL (0.0-0.2); Basophils Percent Auto 0.9 % (0-2); Eosinophils Absolute Auto 0.2 X10*3/uL (0.0-0.4); Eosinophils Percent Auto 3.3 % (0-4); Hematocrit 38.7 % (37.0-47.0); Hemoglobin 12.8 g/dl (12.0-16.0); Imm Gran Abs Auto 0.03 X10*3/uL (0.00-0.03); Imm Gran Pct Auto 0.5 % (0.0-0.4); Lymphocytes Absolute Auto 2.3 X10*3/uL (1.2-4.9); Lymphocytes Percent Auto 42.9 % (20-40); Mean Corpuscular HGB Conc 33.1 g/dl (31.0-35.0); Mean Corpuscular Hemoglobin 28.9 pg (27.0-33.0); Mean Corpuscular Volume 87.4 fL (80.0-98.0); Mean Platelet Volume 9.1 fL (9.4-12.3); Monocytes Absolute Auto 0.5 X10*3/uL (0.1-1.2); Monocytes Percent Auto 8.4 % (2-11); Neutrophils Absolute Auto 2.4 x10*3/uL (2.0-8.3); Platelet Count 352 X10*3/uL (160-400); Red Blood Count 4.43 X10*6/uL (4.20-5.50); Red Cell Distribution Width 13.6 % (11.0-16.0); White Blood Count 5.5 X10*3/uL (4.8-10.8)
[2024-01-05 10:27] LABS: Appearance Urine Clear; Color Urine Yellow; Glucose Urine UA Negative (Negative); Leukocyte Esterase Urine Small (1+) (Negative); Nitrite Urine Negative (Negative); PH 5.5 (5.0-9.0); Specific Gravity - Urine 1.015 (1.005-1.025); UMIC TRIGGER UA YES; Urine Blood Negative (Negative); Urine Ketones Negative (Negative); Urine Protein Negative (Neg-Trace)
[2024-01-05 10:41] LABS: Bacteria Urine None Seen (None Seen); Hyaline Casts Urine 0-2 /LPF (0-2); RBC Urine 0-2 /HPF (0-2); Squamous Epithelial Cell Urine 0-2 /HPF (0-2); WBC Urine 0-5 /HPF (0-5)
[2024-01-05 10:43] LABS: Alanine Aminotransferase 20 U/L (0-31); Albumin Level 4.2 g/dL (3.5-5.0); Alkaline Phosphatase 54 U/L (39-117); Anion Gap 12 (12-20); Aspartate Amino Transferase 21 U/L (5-31); Bilirubin Total 0.2 mg/dL (0.0-1.0); Blood Urea Nitrogen 21 mg/dL (9-16); Calcium 9.9 mg/dL (8.4-10.2); Carbon Dioxide 28 mmol/L (22-29); Chloride 103 mmol/L (96-108); Cholesterol 277 mg/dL (<200); Estimated Glomerular Filt Rate 52; Glucose Random 92 mg/dL (60-115); HDL Cholesterol 53 mg/dL (>40); LDL Cholesterol Calculated 197 mg/dL (<100); Potassium 4.2 mmol/L (3.3-5.1); Sodium 139 mmol/L (135-145); Total Protein 6.9 g/dL (6.5-8.0); Triglycerides 139 mg/dL (<150)
[2024-01-05 10:51] LABS: Rheumatoid Factor < 13.0 IU/mL (<15.0)
[2024-01-05 11:04] LABS: Erythrocyte Sedimentation Rate 14 MM/HR (0-20)
[2024-01-05 11:07] LABS: TSH reflex Free T4 2.24 uIU/mL (0.32-4.0); Vitamin D 25-OH Total 85.8 ng/mL (>30)
[2024-01-05 11:13] LABS: Folate 11.4 ng/mL (> or = 4.0); Vitamin B12 693 pg/mL (200-900)
[2024-01-06 16:28] LABS: LDL Cholesterol Direct 200 mg/dL (<100)
[2024-01-07 00:58] LABS: CRP High Sensitivity 0.9 mg/L
[2024-01-17 11:43] LABS: ANA Pattern 2 Nuclear, Nucleolar; ANA Titer 2 1:40 titer; Anti Nuclear Antibody Screen POSITIVE (NEGATIVE); Anti Nuclear Antibody Titer 1:40 titer
== END 2024-01-05 06:02 | disposition home or self-care (01) ==
LOC: HO.HMGCLDS 06:01
PROVIDERS: PCP Family Medicine; Visit Provider Family Medicine
DX: Z00.00 Encounter for general adult medical examination without abnormal findings (principal); M25.50 Pain in unspecified joint; E55.9 Vitamin D deficiency, unspecified; E53.8 Deficiency of other specified B group vitamins
CPT/HCPCS: 36415; 80053; 80061; 81001; 82306; 82607; 82746; 83721; 84443; 85025; 85652; 86038; 86039; 86141; 86431

== ENCOUNTER 2024-01-07 09:57 | Outpatient (REF) | payer OTHER, SELFPAY ==
--- NOTE | ~2024-01-07 | XR_ITS ---
EXAMINATION:XR cervical spine 2V CLINICAL INFORMATION: Cervalgia COMPARISON: None TECHNIQUE: 2 views frontal and lateral FINDINGS: 7 cervical vertebrae identified maintaining normal height , loss of normal cervical lordosis likely spasm. Hardware anterior fusion of C5 and C6 is intact.. Narrowing of intervertebral disc spaces at C3-C4, C4-C5 C6-C7 suggests underlying moderate to severe degenerative disc disease. No prevertebral soft tissue swelling. Surrounding soft tissue and included lung apices are clear. Paravertebral soft tissues unremarkable. Included lung apices are clear XR/XR cervical spine 2V IMPRESSION: Stable hardware anterior fusion of C5-C6. Narrowing of intervertebral disc spaces and developed osteophytes suggest underlying degenerative disc disease at multiple levels. Loss of normal cervical lordosis likely spasm.
--- NOTE | ~2024-01-07 | XR_ITS ---
EXAMINATION: XR LUMBAR SPINE CLINICAL INFORMATION: Reason for Exam M54.50 - Low back pain, unspecified COMPARISON: None TECHNIQUE: Frontal lateral and coned-down L5-S1 frontal lateral, total of 3 views FINDINGS: Five [id number] lumbar vertebrae were identified maintaining normal height and alignments. Narrowing of intervertebral disc spaces suggest underlying degenerative disc disease. There are aortic vascular calcifications otherwise Paravertebral soft tissues are unremarkable. There are radiolucencies, most likely superimposed bowel gas.. No radiographic evidence of osteolytic or osteoblastic lesions. XR/XR lumbar spine 2-3V IMPRESSION: Narrowing of disc spaces suggest underlying degenerative disc disease. No fracture. Vascular calcifications.
== END 2024-01-07 09:58 | disposition home or self-care (01) ==
LOC: HO.HMGCX 09:57
PROVIDERS: PCP Family Medicine; Visit Provider Family Medicine
DX: M54.2 Cervicalgia (principal); M54.50 Low back pain, unspecified
CPT/HCPCS: 72040; 72100

== ENCOUNTER 2024-01-10 15:37 | Outpatient (AMB) | payer OTHER, SELFPAY ==
[2024-01-10 15:57] VITALS: BP 124/86; PULSE 68; RESP 15; TEMP 36.1; O2SAT 95; BMI 26.0
--- NOTE | 2024-01-10 15:57 | A.OFFPC_ITS ---
Vital Signs 01/10/24 15:57 Height 5 ft Weight 133 lb BMI 26.0 BP 124/86 Blood Pressure Location Rt brachial Position Sitting Respiration 15 Pulse 68 Pulse Source Pulse Oximeter Temp 97 F Temp Source Temporal Artery Scan Pulse Oximetry (%) 95 Oxygen Delivery Method Room Air Intake Visit Reasons: f/u labs Intake Note: Patient would like for you to check ears if possible. Gravity Meter Operator Required: No Accompanied by: Self / Same As Patient Allergies celecoxib [From CELEBREX] Allergy (Unknown, Verified 01/10/24 16:02) GASTRITIS ibuprofen [IBUPROFEN] Allergy (Unknown, Verified 01/10/24 16:02) GASTRITIS lactose [LACTOSE] Allergy (Unknown, Verified 01/10/24 16:02) STOMACH UPSET latex [LATEX] Allergy (Unknown, Verified 01/10/24 16:02) RASH metaxalone [From SKELAXIN] Allergy (Unknown, Verified 01/10/24 16:02) GASTRITIS NSAIDS (Non-Steroidal Anti-Inflamma [NSAIDS] Allergy (Unknown, Verified 01/10/24 16:02) GASTRITIS rofecoxib [From VIOXX] Allergy (Unknown, Verified 01/10/24 16:02) GASTRITIS Medication List - Last Reconciled 01/10/24 by Kian Schultz MD acetaminophen ER (Tylenol Arthritis Pain) 650 mg PO Q12H blood pressure monitor As directed cholecalciferol (vitamin D3) 25 mcg PO DAILY cyclobenzaprine 10 mg PO BEDTIME diclofenac sodium 1% 4 grams topical QID 30 days docusate sodium (Colace) 100 mg PO DAILY duloxetine (Cymbalta) 60 mg PO BID 90 days hydroxyzine HCl 50 mg PO BEDTIME lisinopril 5 mg (1/2 x 10 mg) PO DAILY 90 days miscellaneous medical supply (Blood Pressure Cuff) As directed multivitamin with folic acid 400 mcg (Daily-Malick (with folic acid)) 1 tab PO DAILY oxycodone 5 mg PO Q4H PRN trazodone 100 mg (2 x 50 mg) PO BEDTIME 30 days Tobacco use date assessed: 10/26/23 Dental Screening Dental Screen Date: 10/26/23 HPI f/u labs HPI Details 58 y/o female presents to f/u labs. Labs were drawn 01/05/24. Reviewed labs with pt. Triglycerides 139. TC 277. LDL direct 200. HDL 53. She has complaints of vertigo today. She notes meclizine has helped in the past. [facility] Medical History Small bowel obstruction Cervical disc disease Sciatica Migraine Fibromyalgia Insomnia Anxiety Depression Surgical History History of laparotomy (11/03/23) History of colonoscopy Family History Other Mental health disorder Social History Household Members: None Housing: Apartment Do you presently have visiting nurse or other home services: No Alcohol intake: never Comment: rings appropriately Patient Tobacco Use Status: Former Tobacco user Tobacco use type: Cigarette e-Cigarette/Vaping Use: Never Used Second Hand Smoke Exposure: No Substance Use Type: Marijuana service: No Current occupational status: disabled Cognitive needs: No Hearing needs: No Vision needs: No Questionnaire Thrive Questionnaire Date Thrive assessed: 11/04/23 WILBER-7 AMB Questionnaire WILBER-7 Date WILBER - 7 assessed: 06/30/23 Source: Developed by Drs. Wilfredo Yeung, Mallory Cornelius, Markos Calderon and colleagues, with an educational wolf from [employer]. Physical exam (Primary Care) Vital Signs: Last Vital Signs Temp 97 F 01/10/24 15:57 Pulse 68 01/10/24 15:57 Resp 15 01/10/24 15:57 BP 124/86 01/10/24 15:57 Pulse Ox 95 01/10/24 15:57 Oxygen Delivery Method Room Air 01/10/24 15:57 BMI result Body Mass Index 26.0 Tobacco/Smoking Status: Tobacco use Status Tobacco use date assessed 10/26/23 01/10/24 16:04 Patient Tobacco Use Status Former Tobacco user 01/10/24 16:04 Tobacco use type Cigarette 01/10/24 16:04 e-Cigarette/Vaping Use Never Used 01/10/24 16:04 Thrive Assessment: Date of Thrive Assessment Date Thrive assessed 11/04/23 01/10/24 16:04 Assessment and Plan Assessment & Plan (1) Hyperlipidemia: Code(s): E78.5 - Hyperlipidemia, unspecified Plan: Start?atorvastatin?40?mg?daily Will?recheck?lipids?in?a?few?months (2) Vertigo: Code(s): R42 - Dizziness and giddiness Plan: Will?send?script?for?meclizine?which?she?says?has?helped?in?the?past She?has?also?benefitted?from?physical?therapy?which?I?will?order?as?well (3) Cervicalgia: Code(s): M54.2 - Cervicalgia Plan: Followed?by[facility] (4) Small bowel obstruction: Code(s): K56.609 - Unspecified intestinal obstruction, unspecified as to partial versus complete obstruction Plan: S/p laparoscopy?and?lysis?of?adhesions Doing?well Advised?she?hold?off?on?any?exercises?requiring?increase?abdominal?cavity?pressu re/Valsalva Follow-up?with?surgeon?as?recommended Orders: Orders Comprehensive [place]. Panel Fast Today E78.5 - Hyperlipidemia, unspecified, Z00.00 - Encounter for general adult medical examination without abnormal findings Lipid Panel Today E78.5 - Hyperlipidemia, unspecified, Z00.00 - Encounter for general adult medical examination without abnormal findings PT Evaluation and Treatment Today R42 - Dizziness and giddiness Medications: New atorvastatin 40 mg PO BEDTIME 90 days 90 tabs 3RF meclizine 25 mg PO DAILY 14 days PRN 14 tabs 0RF motion sickness Coding Level of Care Code Est Pt Level 4 (72544) Diagnoses Hyperlipidemia E78.5 Vertigo R42 Cervicalgia M54.2 Small bowel obstruction K56.609
== END 2024-01-10 16:32 | disposition home or self-care (01) ==
PROVIDERS: PCP Family Medicine; Visit Provider Family Medicine
DX: E78.5 Hyperlipidemia, unspecified (principal); R42 Dizziness and giddiness; M54.2 Cervicalgia; K56.609 Unspecified intestinal obstruction, unspecified as to partial versus complete obstruction
CPT/HCPCS: 99214

== ENCOUNTER 2024-04-13 16:17 | Outpatient (AMB) | payer OTHER, SELFPAY ==
--- NOTE | 2024-04-13 16:23 | A.OFFPC_ITS ---
Vital Signs 04/13/24 16:26 Height 5 ft Weight 138 lb 8 oz BMI 27.0 BP 135/83 Blood Pressure Location Rt brachial Position Sitting Respiration 16 Pulse 83 Pulse Source Pulse Oximeter Temp 97.7 F Temp Source Temporal Artery Scan Pulse Oximetry (%) 91 L Oxygen Delivery Method Room Air Intake Visit Reasons: pain from fall Intake Note: pt fell mar 26 and is having pain in her coccyx Allergies celecoxib [From CELEBREX] Allergy (Unknown, Verified 04/13/24 16:25) GASTRITIS ibuprofen [IBUPROFEN] Allergy (Unknown, Verified 04/13/24 16:25) GASTRITIS lactose [LACTOSE] Allergy (Unknown, Verified 04/13/24 16:25) STOMACH UPSET latex [LATEX] Allergy (Unknown, Verified 04/13/24 16:25) RASH metaxalone [From SKELAXIN] Allergy (Unknown, Verified 04/13/24 16:25) GASTRITIS NSAIDS (Non-Steroidal Anti-Inflamma [NSAIDS] Allergy (Unknown, Verified 04/13/24 16:25) GASTRITIS rofecoxib [From VIOXX] Allergy (Unknown, Verified 04/13/24 16:25) GASTRITIS Medication List - Last Reconciled 04/13/24 by Kian Schultz MD acetaminophen ER (Tylenol Arthritis Pain) 650 mg PO Q12H atorvastatin 40 mg PO BEDTIME 90 days blood pressure monitor As directed cholecalciferol (vitamin D3) 25 mcg PO DAILY cyclobenzaprine 10 mg PO BEDTIME diclofenac sodium 1% 4 grams topical QID 30 days docusate sodium (Colace) 100 mg PO DAILY duloxetine (Cymbalta) 60 mg PO BID 90 days hydroxyzine HCl 50 mg PO BEDTIME lisinopril 5 mg (1/2 x 10 mg) PO DAILY 90 days meclizine 25 mg PO DAILY PRN 14 days miscellaneous medical supply (Blood Pressure Cuff) As directed multivitamin with folic acid 400 mcg (Daily-Malick (with folic acid)) 1 tab PO DAILY oxycodone 5 mg PO Q4H PRN trazodone 100 mg (2 x 50 mg) PO BEDTIME 30 days Tobacco use date assessed: 10/26/23 Dental Screening Dental Screen Date: 10/26/23 HPI pain from fall HPI Details Patient?fell?on?February? while?trying?to?sit?in?to?a?chair.??The?chair?moved?and?she?landed?on?her?backsi de. Patient?says?she?has?had?severe?pain?in?her?coccyx?since?then.??Also?pain?at?pos terior?pelvis.??Pain?in?low?back.?Pain?with?moving/abducting?her?legs. ?Pain?with?leaning?and?walking. She?has?had?pain?in?her?left?neck?and?shoulder?previously.??This?has?worsened. She?is?able?to?walk?and?bear?weight.??She?is?wearing?a?sling?on?her?last?arm. She?is?using?a?donut?cushion?in?the?car?though?she?did?not?bring?it?into?the?vis it?today. Urinating?and?bowel?movements?are?normal. [facility] Medical History Small bowel obstruction Cervical disc disease Sciatica Migraine Fibromyalgia Insomnia Anxiety Depression Surgical History History of laparotomy (11/03/23) History of colonoscopy Family History Other Mental health disorder Social History Household Members: None Housing: Apartment Do you presently have visiting nurse or other home services: No Alcohol intake: never Comment: rings appropriately Patient Tobacco Use Status: Former Tobacco user Tobacco use type: Cigarette e-Cigarette/Vaping Use: Never Used Second Hand Smoke Exposure: No Substance Use Type: Marijuana service: No Current occupational status: disabled Cognitive needs: No Hearing needs: No Vision needs: No Questionnaire PHQ-9 Over the last 2 weeks, how often have you been bothered by any of the following problems? 1. Little interest or pleasure in doing things: not at all 2. Feeling down, depressed, or hopeless: not at all 3. Trouble falling or staying asleep, or sleeping too much: nearly every day 4. Feeling tired or having little energy: nearly every day 5. Poor appetite or overeating: not at all 6. Feeling bad about yourself - or that you are a failure or have let yourself or your family down: not at all 7. Trouble concentrating on things, such as reading the newspaper or watching television: not at all 8. Moving or speaking so slowly that other people could have noticed. Or the opposite - being so fidgety or restless that you have been moving around a lot more than usual: not at all 9. Thoughts that you would be better off or of hurting yourself in some w ay: not at all Total score: 6 Source: Developed by Drs. Wilfredo Yeung, Mallory Cornelius, Markos Calderon and colleagues, with an educational wolf from [employer]. Thrive Questionnaire Date Thrive assessed: 04/10/24 I am a: Patient What is your living situation today?: I have a steady place to live Within the past 12 months, did the food you bought not last and you didn't have the money to get more?: Sometimes True Within the past 12 months, did you worry whether your food would run out before you got money to buy more?: Sometimes True Do you have trouble paying for medicines?: No Do you have trouble getting transportation to medical appointments?: No Do you have trouble paying your heating and electricity bill?: No Do you have trouble taking care of your child, family member or friend?: No Do you have trouble with day-to-day activities such as bathing, preparing meals, shopping, managing finances, etc.?: No Are you currently unemployed and looking for a job?: No Are you interested in more education?: No Please select the resources that you would like help with: None Currently or been in a relationship where the following occur: No concerns reported THRIVE Score: 2 AUDIT C Alcohol Use Questionnaire (AUDIT-C) 1. How often do you have a drink containing alcohol?: Never Total Score: 0 WILBER-7 AMB Questionnaire WILBER-7 Date WILBER - 7 assessed: 06/30/23 Feeling nervous, anxious, or on edge: 1 = Several days Not being able to stop or control worryin = Not at all Worrying too much about different things: 1 = Several days Trouble relaxin = Several days Being so restless that it is hard to sit still: 1 = Several days Becoming easily annoyed or irritable: 0 = Not at all Feeling afraid as if something awful might happen: 0 = Not at all Total WILBER-7 score (0-4 normal; 5-9 mild; 10-14 moderate; 15-21 severe): 4 Source: Developed by Drs. Wilfredo Yeung, Mallory Cornelius, Markos Calderon and colleagues, with an educational wolf from [employer]. Review of Systems Const Details: See?HPI Physical exam (Primary Care) Tobacco/Smoking Status: Tobacco use Status Tobacco use date assessed 10/26/23 01/10/24 16:04 Patient Tobacco Use Status Former Tobacco user 01/10/24 16:04 Tobacco use type Cigarette 01/10/24 16:04 e-Cigarette/Vaping Use Never Used 01/10/24 16:04 Thrive Assessment: Date of Thrive Assessment Date Thrive assessed 04/10/24 04/10/24 13:11 Currently or been in a relationship where the following occur: No concerns reported Const General: no acute distress and well developed Nutritional Appearance: well nourished Orientation/consciousness: patient oriented x3 HENMT Head: Yes normocephalic and Yes atraumatic Eyes General: appearance normal, both eyes and all related structures Pupils: Equal, round and reactive pupils present EOM: EOMs intact bilaterally Resp Effort & Inspection: normal respiratory effort Auscultation: clear to auscultation bilaterally Cardio Rate: regular rate Rhythm: regular rhythm Heart sounds: S1 normal heart sound present, S2 normal heart sound present, no gallops, no murmurs and no rubs Back/Spine/Pelvis Other: Tenderness and Pain?at?top?of?gluteal?cleft?and?coccyx?region.??Pain?and?posterior?pel vis?and?lumbar?spine. Cervicalgia?and?left?shoulder?pain. Neuro Other: Mildly?slow?gait - otherwise?normal. General: patient oriented x3 Cranial nerves: Yes Equal, round and reactive pupils present Extrem Other: Left?arm?in?sling.??Normal?motor?at?finger?and?normal?circulation. Psych Affect: normal affect Coding Level of Care Code Est Pt Level 3 (57490) Diagnoses Low back pain M54.50 Assessment & Plan Assessment & Plan (1) Low back pain: Code(s): M54.50 - Low back pain, unspecified Category: Medical Plan: Ongoing?low?back?pain,?coccyx?and?posterior?pelvic?pain - worsened?after?fall. Check?x-rays?of?pelvis,?coccyx?and?lumbar?spine.??Patient?had?recent?lumbar?spin e?films?which?showed?only?degenerative?changes?but?has?had?a?fall?since?then. Patient?does?not?tolerate?NSAIDs.??Will?give?her?a prednisone?taper. Ice/heat Topicals?which?she?already?has?at?home?including?diclofenac?gel. Will?follow-up?in?a?week?to?discuss?x-ray?results?and?next?steps. Call?or?return?to?office?sooner?if?worsening?or?any?new?concerning?symptoms?such ?as?bowel?or?bladder?dysfunction. Orders: Orders XR pelvis 1-2V Today M25.559 - Pain in unspecified hip XR sacrum coccyx min 2V Today M53.3 - Sacrococcygeal disorders, not elsewhere classified XR lumbar spine 2-3V Today M54.50 - Low back pain, unspecified
[2024-04-13 16:26] VITALS: BP 135/83; PULSE 83; RESP 16; TEMP 36.5; O2SAT 91; BMI 27.0
== END 2024-04-13 16:53 | disposition home or self-care (01) ==
PROVIDERS: PCP Family Medicine; Visit Provider Family Medicine
DX: M54.50 Low back pain, unspecified (principal)

== ENCOUNTER → 2024-04-13 16:17 | Outpatient (BNVA) | payer OTHER, SELFPAY | PROVIDERS: PCP Family Medicine; Visit Provider Family Medicine | DX: M54.50 Low back pain, unspecified (principal); M53.3 Sacrococcygeal disorders, not elsewhere classified; R10.2 Pelvic and perineal pain | CPT/HCPCS: 99212 ==

== ENCOUNTER 2024-04-14 10:25 | Outpatient (REF) | payer OTHER, SELFPAY ==
--- NOTE | ~2024-04-14 | XR_ITS ---
EXAMINATION: XR LUMBAR SPINE. XR SACRUM AND COCCYX. CLINICAL INFORMATION: Low back pain, recent fall COMPARISON: Lumbar spine radiographs 01/07/2024 TECHNIQUE: 3 views of the lumbar spine and 3 views of the sacrum and coccyx. FINDINGS: Normal alignment and lumbar lordosis with mild degenerative disc disease noting small anterior endplate osteophytes, not significantly changed. Subtle cortical irregularity with slight anterior displacement at the sacrococcygeal junction which is new finding and likely represents a fracture. XR/XR sacrum coccyx min 2V IMPRESSION: 1. Probable minimally displaced fracture at the sacrococcygeal junction. 2. Mild degenerative disc disease of the lumbar spine. Electronically signed by: Marquis Pompa MD 04/15/2024 10:33 AM EDT
--- NOTE | ~2024-04-14 | XR_ITS ---
EXAMINATION: XR LUMBAR SPINE. XR SACRUM AND COCCYX. CLINICAL INFORMATION: Low back pain, recent fall COMPARISON: Lumbar spine radiographs 01/07/2024 TECHNIQUE: 3 views of the lumbar spine and 3 views of the sacrum and coccyx. FINDINGS: Normal alignment and lumbar lordosis with mild degenerative disc disease noting small anterior endplate osteophytes, not significantly changed. Subtle cortical irregularity with slight anterior displacement at the sacrococcygeal junction which is new finding and likely represents a fracture. XR/XR lumbar spine 2-3V IMPRESSION: 1. Probable minimally displaced fracture at the sacrococcygeal junction. 2. Mild degenerative disc disease of the lumbar spine. Electronically signed by: Marquis Pompa MD 04/15/2024 10:33 AM EDT
--- NOTE | ~2024-04-14 | XR_ITS ---
EXAMINATION: XR PELVIS CLINICAL INFORMATION: Pain. COMPARISON: None available. TECHNIQUE: AP view of the pelvis. FINDINGS: No fracture. Hip joint spaces are maintained. Alignment is anatomic. Sacroiliac joints and pubic symphysis are normal. No abnormal soft tissue calcifications. XR/XR pelvis 1-2V IMPRESSION: No significant abnormality seen. Electronically signed by: Al Guzman MD 04/15/2024 05:42 AM EDT
[2024-04-14 11:56] LABS: Appearance Urine Clear; Color Urine Yellow; Glucose Urine UA Negative (Negative); Leukocyte Esterase Urine Small (1+) (Negative); Nitrite Urine Negative (Negative); Specific Gravity - Urine 1.015 (1.005-1.025); UMIC TRIGGER UA YES; Urine Blood Negative (Negative); Urine Ketones Negative (Negative); Urine Protein Negative (Neg-Trace)
[2024-04-14 12:17] LABS: Bacteria Urine Trace (None Seen); Hyaline Casts Urine 0-2 /LPF (0-2); RBC Urine 0-2 /HPF (0-2); WBC Urine 0-5 /HPF (0-5)
[2024-04-14 12:18] LABS: Alanine Aminotransferase 25 U/L (0-31); Albumin Level 4.1 g/dL (3.5-5.0); Alkaline Phosphatase 63 U/L (39-117); Anion Gap 10 (12-20); Aspartate Amino Transferase 21 U/L (5-31); Bilirubin Total 0.3 mg/dL (0.0-1.0); Blood Urea Nitrogen 19 mg/dL (9-16); Calcium 9.3 mg/dL (8.4-10.2); Carbon Dioxide 28 mmol/L (22-29); Chloride 107 mmol/L (96-108); Cholesterol 154 mg/dL (<200); Estimated Glomerular Filt Rate 57; Glucose Fasting 103 mg/dL (60-99); HDL Cholesterol 57 mg/dL (>40); LDL Cholesterol Calculated 85 mg/dL (<100); Potassium 4.3 mmol/L (3.3-5.1); Sodium 141 mmol/L (135-145); Total Protein 6.6 g/dL (6.5-8.0); Triglycerides 62 mg/dL (<150)
== END 2024-04-14 10:26 | disposition home or self-care (01) ==
LOC: HO.HMGCX 10:25
PROVIDERS: PCP Family Medicine; Visit Provider Family Medicine
DX: M54.50 Low back pain, unspecified (principal); M25.551 Pain in right hip; M25.552 Pain in left hip; M53.3 Sacrococcygeal disorders, not elsewhere classified; E78.5 Hyperlipidemia, unspecified; Z00.00 Encounter for general adult medical examination without abnormal findings
CPT/HCPCS: 36415; 72100; 72170; 72220; 80053; 80061; 81001; 81003

== ENCOUNTER 2024-04-25 09:58 | Outpatient (AMB) | payer OTHER, SELFPAY ==
--- NOTE | 2024-04-25 10:07 | A.OFFPC_ITS ---
Vital Signs 04/25/24 10:11 Height 5 ft Weight 140 lb 8 oz BMI 27.4 BP 115/66 Blood Pressure Location Rt brachial Position Sitting Respiration 14 Pulse 92 Pulse Source Pulse Oximeter Temp 98.2 F Temp Source Temporal Artery Scan Pulse Oximetry (%) 98 Oxygen Delivery Method Room Air Intake Visit Reasons: F/U Bloodwork and Xray Intake Note: f/u labs and x-ray Allergies adhesive tape Allergy (Severe, Verified 04/25/24 10:09) grijalva skin celecoxib [From CELEBREX] Allergy (Unknown, Verified 04/25/24 10:09) GASTRITIS ibuprofen [IBUPROFEN] Allergy (Unknown, Verified 04/25/24 10:09) GASTRITIS lactose [LACTOSE] Allergy (Unknown, Verified 04/25/24 10:09) STOMACH UPSET latex [LATEX] Allergy (Unknown, Verified 04/25/24 10:09) RASH metaxalone [From SKELAXIN] Allergy (Unknown, Verified 04/25/24 10:09) GASTRITIS NSAIDS (Non-Steroidal Anti-Inflamma [NSAIDS] Allergy (Unknown, Verified 04/25/24 10:09) GASTRITIS rofecoxib [From VIOXX] Allergy (Unknown, Verified 04/25/24 10:09) GASTRITIS Tobacco use date assessed: 10/26/23 Dental Screening Dental Screen Date: 10/26/23 HPI F/U Bloodwork and Xray HPI Details 58 y/o female presents to f/u bloodwork, x-ray for low back, coccyx and posterior pelvic pain that worsened after a fall. Lumbar spine x-ray shows mild degenerative disc disease of lumbar spine. Probable minimally displaced fracture at the sacrococcygeal junction. Labs drawn 04/14/24. Reviewed labs with pt. Triglycerides 62. TC 154. LDL improved from 197 to 85. HDL 57. She is on artovastatin 40mg daily. Reports ongoing neck/shoulder pain PFSH Medical History Small bowel obstruction Cervical disc disease Sciatica Migraine Fibromyalgia Insomnia Anxiety Depression Surgical History History of laparotomy (11/03/23) History of colonoscopy Family History Other Mental health disorder Social History Household Members: None Housing: Apartment Do you presently have visiting nurse or other home services: No Alcohol intake: never Comment: rings appropriately Patient Tobacco Use Status: Former Tobacco user Tobacco use type: Cigarette e-Cigarette/Vaping Use: Never Used Second Hand Smoke Exposure: No Substance Use Type: Marijuana service: No Current occupational status: disabled Cognitive needs: No Hearing needs: No Vision needs: No Questionnaire Thrive Questionnaire Date Thrive assessed: 04/10/24 I am a: Patient What is your living situation today?: I have a steady place to live Within the past 12 months, did the food you bought not last and you didn't have the money to get more?: Sometimes True Within the past 12 months, did you worry whether your food would run out before you got money to buy more?: Sometimes True Do you have trouble paying for medicines?: No Do you have trouble getting transportation to medical appointments?: No Do you have trouble paying your heating and electricity bill?: No Do you have trouble taking care of your child, family member or friend?: No Do you have trouble with day-to-day activities such as bathing, preparing meals, shopping, managing finances, etc.?: No Are you currently unemployed and looking for a job?: No Are you interested in more education?: No Please select the resources that you would like help with: None Currently or been in a relationship where the following occur: No concerns reported THRIVE Score: 2 WILBER-7 AMB Questionnaire WILBER-7 Date WILBER - 7 assessed: 06/30/23 Source: Developed by Drs. Wilfredo Yeung, Mallory Cornelius, Markos Calderon and colleagues, with an educational wolf from [employer]. Review of Systems Const Denies chills, Denies fatigue, Denies fever(s), Denies headache(s) and Denies weakness ENT Denies dizziness and Denies headache(s) Card Denies dyspnea Resp Denies cough, Denies dyspnea, Denies wheezing and Denies other (shortness of breath) Musc Denies numbness and Denies tingling Neuro Denies dizziness, Denies headache(s), Denies numbness, Denies tingling and Denies weakness Psych Denies anxiety and Denies depression Endo Denies fatigue Aller/Immun Denies wheezing Physical exam (Primary Care) Vital Signs: Last Vital Signs Temp 98.2 F 04/25/24 10:11 Pulse 92 04/25/24 10:11 Resp 14 04/25/24 10:11 BP 115/66 04/25/24 10:11 Pulse Ox 98 04/25/24 10:11 Oxygen Delivery Method Room Air 04/25/24 10:11 BMI result Body Mass Index 27.4 Tobacco/Smoking Status: Tobacco use Status Tobacco use date assessed 10/26/23 04/25/24 10:14 Patient Tobacco Use Status Former Tobacco user 04/25/24 10:14 Tobacco use type Cigarette 04/25/24 10:14 e-Cigarette/Vaping Use Never Used 04/25/24 10:14 Thrive Assessment: Date of Thrive Assessment Date Thrive assessed 04/10/24 04/25/24 10:14 Currently or been in a relationship where the following occur: No concerns reported Const General: well developed; No acute distress Nutritional Appearance: well nourished Orientation/consciousness: patient oriented x3 HENMT Head: Yes normocephalic and Yes atraumatic Eyes General: appearance normal, both eyes and all related structures Pupils: Equal, round and reactive pupils present EOM: EOMs intact bilaterally Resp Effort & Inspection: normal respiratory effort Neuro General: patient oriented x3 and gait normal Cranial nerves: Yes Equal, round and reactive pupils present Psych Affect: normal affect Coding Level of Care Code Est Pt Level 4 (32695) Diagnoses Low back pain M54.50 Coccyx pain M53.3 Hyperlipidemia E78.5 Cervicalgia M54.2 Shoulder pain M25.519 Assessment & Plan Assessment & Plan (1) Low back pain: Code(s): M54.50 - Low back pain, unspecified Category: Medical Plan: Ongoing?low?back?and?sacral?pain?after?a?fall. Lumbar?plain?films?just?showed?degener ative?changes?but?sacral?films?show?a?nondisplaced?fracture?and?a?sacral?coccyge al?junction Continue?using?donut?pillow Ice/heat She?does?not?tolerate?NSAIDs Can?use?Tylenol Will?give?her?1?more?cours e?of?prednisone?as?a?taper.??We?discussed?after?that?she?should?try?not?to?use?a ny?more?steroids?for?while?and?patient?agrees. (2) Coccyx pain: Code(s): M53.3 - Sacrococcygeal disorders, not elsewhere classified Category: Medical Plan: As?above (3) Hyperlipidemia: Code(s): E78.5 - Hyperlipidemia, unspecified Category: Medical Plan: Had?started?her?on?atorvastatin?and?lipid?panel?all?within?normal?range?now She?is?tolerating?this?medication?well Continue?current?medication (4) Cervicalgia: Code(s): M54.2 - Cervicalgia Category: Medical Plan: Neck?and?shoulder?pain?bilaterally,?left?worse?than?right Start?physical?therapy Medications?as?above (5) Shoulder pain: Code(s): M25.519 - Pain in unspecified shoulder Category: Medical Plan: Bilateral?shoulder?pain,?left?worse?than?right Some?decreased?range?of?motion Start?physical?therapy If?not?improving?will?image?and?refer Orders: Orders Lyme IgG/IgM w/reflex to WB Today M25.50 - Pain in unspecified joint PT Evaluation and Treatment Today M25.519 - Pain in unspecified shoulder, M54.2 - Cervicalgia
[2024-04-25 10:11] VITALS: BP 115/66; PULSE 92; RESP 14; TEMP 36.8; O2SAT 98; BMI 27.4
== END 2024-04-25 10:39 | disposition home or self-care (01) ==
LOC: HO.HMCFM 09:59
PROVIDERS: PCP Family Medicine; Visit Provider Family Medicine
DX: M54.50 Low back pain, unspecified (principal); M53.3 Sacrococcygeal disorders, not elsewhere classified; E78.5 Hyperlipidemia, unspecified; M54.2 Cervicalgia; M25.519 Pain in unspecified shoulder

== ENCOUNTER → 2024-04-25 09:58 | Outpatient (BNVA) | payer OTHER, SELFPAY | PROVIDERS: PCP Family Medicine; Visit Provider Family Medicine | DX: M54.50 Low back pain, unspecified (principal); M53.3 Sacrococcygeal disorders, not elsewhere classified; E78.5 Hyperlipidemia, unspecified; M54.2 Cervicalgia; M25.512 Pain in left shoulder | CPT/HCPCS: 99212 ==

== ENCOUNTER 2024-06-07 12:39 | Outpatient (REF) | payer OTHER, SELFPAY ==
--- NOTE | ~2024-06-07 | MM_ITS ---
EXAMINATION: BONE DENSITOMETRY CLINICAL INDICATION: Age-related osteoporosis without current pathological fracture. COMPARISON: This is the patient's baseline examination. TECHNIQUE: Using a [employer] DXA System (software version: 13.1) manufactured by [employer], dual-energy x-ray absorptiometry was performed of the lumbar spine and left hip. The images are of good technical quality. Summary results are attached. FINDINGS: LEFT FEMUR, NECK: BMD 0.749 g/cm2, Z-score -0.7, T-score -2.1, osteopenia. LEFT FEMUR, TOTAL: BMD 0.805 g/cm2, Z-score -0.5, T-score -1.6, osteopenia. AP SPINE L1-L4: BMD 1.212 g/cm2, Z-score 1.8, T-score 0.3, normal. IDENTIFIED RISK FACTORS: Early menopause, secondary osteoporosis, parental hip fracture, history of fracture (adult), hysterectomy, bilateral oophorectomy. HISTORY OF FRACTURE: None listed. MEDICATIONS: Calcium supplements or multivitamin, vitamin D. MM/XR DEXA axial skeleton IMPRESSION: 1. DIAGNOSIS: Osteopenia based on the lowest T-score value of -2.1 in the femoral neck applying World Health Organization criteria. 2. 10-YEAR FRACTURE RISK PREDICTION, FRAX: Major osteoporotic fracture (clinical spine, forearm, hip or shoulder) 31.1%. Hip fracture 2.7%. 3. Treatment Recommendations: NOF guidelines recommend consideration for treatment in postmenopausal women and men age 50 and older presenting with the following: -A hip or vertebral (clinical or morphometric) fracture. -T-score less than or equal to -2.5 at the femoral neck or spine after appropriate evaluation to exclude secondary causes. -Low bone mass at the hip or spine and a 10-year fracture probability by FRAX of greater than or equal to 3% for hip fracture or greater than or equal to 20% for major osteoporotic fracture based on the [place] adapted WHO algorithm. 4. Other Recommendations: All treatment decisions require clinical judgment and consideration of individual patient factors, including patient preferences, comorbidities, previous drug use, risk factors not captured in the FRAX model (e.g. frailty, falls, vitamin D deficiency, increased bone turnover, interval significant decline in bone density) and possible under or overestimation of fracture risk by FRAX. Additional medical evaluation for secondary cause of low bone mineral density may be appropriate. FUTURE SCAN RECOMMENDATION: People with diagnosed cases of osteoporosis or at high risk for fracture should have regular bone mineral density tests. For patients eligible for Medicare, routine testing is allowed once every 2 years. The testing frequency can be increased to one year for patients who have rapidly progressing disease, those who are receiving or discontinuing medical therapy to restore bone mass, or have additional risk factors. Electronically signed by: Alcides Uriostegui MD 06/07/2024 03:15 PM [facility]ILDA [facility]OR
== END 2024-06-07 12:40 | disposition home or self-care (01) ==
LOC: HO.MAMMO 12:39
PROVIDERS: PCP Family Medicine; Visit Provider Family Medicine
DX: M81.0 Age-related osteoporosis without current pathological fracture (principal); Z78.0 Asymptomatic menopausal state; Z90.710 Acquired absence of both cervix and uterus
CPT/HCPCS: 77080

== ENCOUNTER → 2024-08-01 09:16 | Outpatient (BNVA) | payer OTHER, SELFPAY | PROVIDERS: PCP Family Medicine; Visit Provider Family Medicine | DX: E78.5 Hyperlipidemia, unspecified (principal); M25.50 Pain in unspecified joint; M85.80 Other specified disorders of bone density and structure, unspecified site; I10 Essential (primary) hypertension; M79.641 Pain in right hand; M79.642 Pain in left hand | CPT/HCPCS: 99212 ==

== ENCOUNTER 2024-11-01 09:10 | Outpatient (AMB) | payer OTHER, SELFPAY ==
--- NOTE | 2024-11-01 09:31 | MHC.PC.OV ---
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: No Information Interpreted: clinical only Is last menstrual period known: No Post menopausal: No Patient : No Allergies adhesive tape Allergy (Severe, Verified 11/01/24 09:34) grijalva skin celecoxib [From CELEBREX] Allergy (Unknown, Verified 11/01/24 09:34) GASTRITIS ibuprofen [IBUPROFEN] Allergy (Unknown, Verified 11/01/24 09:34) GASTRITIS lactose [LACTOSE] Allergy (Unknown, Verified 11/01/24 09:34) STOMACH UPSET latex [LATEX] Allergy (Unknown, Verified 11/01/24 09:34) RASH metaxalone [From SKELAXIN] Allergy (Unknown, Verified 11/01/24 09:34) GASTRITIS NSAIDS (Non-Steroidal Anti-Inflamma [NSAIDS] Allergy (Unknown, Verified 11/01/24 09:34) GASTRITIS rofecoxib [From VIOXX] Allergy (Unknown, Verified 11/01/24 09:34) GASTRITIS Medication List - Last Reconciled 11/01/24 by Kian Schultz MD atorvastatin 40 mg PO BEDTIME 90 days blood pressure monitor As directed calcium carb,lactat-vitamin D3 . choline bitartrate ER mg PO cyanocobalamin (vitamin B-12) 1,000 mcg PO DAILY cyclobenzaprine 10 mg PO BEDTIME diclofenac sodium 1% 4 grams topical QID 30 days docusate sodium (Colace) 100 mg PO DAILY duloxetine (Cymbalta) 60 mg PO BID 90 days hydroxyzine HCl 50 mg PO BEDTIME [lactose enzyme .] loratadine (Allergy Relief (loratadine)) 10 mg PO DAILY [lubri syn/ hyaluronic acid .] miscellaneous medical supply (Blood Pressure Cuff) As directed multivitamin with folic acid 400 mcg (Daily-Malick (with folic acid)) 1 tab PO DAILY trazodone 100 mg (2 x 50 mg) PO BEDTIME 30 days Tobacco use date assessed: 11/01/24 Dental Screening Dental Screen Date: 10/26/23 Did you have a dental visit in the last 12 months?: No Did you have a dental problem in the last 6 months where you did not have access to dental care?: No Was dental information given to patient?: No HPI f/u chronic conditions HPI Details 59 y/o female presents to f/u chronic conditions. Patient has fibromyalgia and polyarthralgia with chronic pain. She does not tolerate oral NSAIDs. She is using topical NSAIDs. I referred her back to occupational therapy. She also is referred back to physical therapy and to physiatry when she sees [facility]. Inflammatory and autoimmune workup unremarkable. I had ordered a Lyme titer but she has not his drawn yet and will do so Blood pressure today 126/62. She is not on anything for her blood pressure. [facility] Medical History Small bowel obstruction Cervical disc disease Sciatica Migraine Fibromyalgia Insomnia Anxiety Depression Surgical History History of laparotomy (11/03/23) History of colonoscopy Family History Other Mental health disorder Social History (Updated 08/01/24 @ 09:49 by Odette Bonilla CMA) Household Members: None Housing: Apartment Do you presently have visiting nurse or other home services: No Alcohol intake: never Comment: rings appropriately Patient Tobacco Use Status: Former Tobacco user Tobacco use type: Cigarette Cigarette Packs Per Day: 1 Years Smoked: 35 e-Cigarette/Vaping Use: Never Used Second Hand Smoke Exposure: No Substance Use Type: Marijuana service: No Current occupational status: disabled Cognitive needs: No Hearing needs: No Vision needs: No Questionnaire Thrive Questionnaire Date Thrive assessed: 07/25/24 I am a: Patient What is your living situation today?: I have a steady place to live Within the past 12 months, did the food you bought not last and you didn't have the money to get more?: Sometimes True Within the past 12 months, did you worry whether your food would run out before you got money to buy more?: Never true Do you have trouble paying for medicines?: No Do you have trouble getting transportation to medical appointments?: No Do you have trouble paying your heating and electricity bill?: No Do you have trouble taking care of your child, family member or friend?: No Do you have trouble with day-to-day activities such as bathing, preparing meals, shopping, managing finances, etc.?: No Are you currently unemployed and looking for a job?: No Are you interested in more education?: No Please select the resources that you would like help with: None Currently or been in a relationship where the following occur: I choose not to answer THRIVE Score: 1 AUDIT C Alcohol Use Questionnaire (AUDIT-C) 3. How often do you have six or more drinks on one occasion?: Never Total Score: 0 WILBER-7 AMB Questionnaire WILBER-7 Date WILBER - 7 assessed: 06/30/23 Source: Developed by Drs. Wilfredo Yeung, Mallory Cornelius, Markos Calderon and colleagues, with an educational wolf from [employer]. Review of Systems Const Denies chills, Denies fatigue, Denies fever(s), Denies headache(s) and Denies weakness ENT Denies dizziness and Denies headache(s) Card Denies dyspnea Resp Denies cough, Denies dyspnea, Denies wheezing and Denies other (shortness of breath) Musc Denies numbness and Denies tingling Neuro Denies dizziness, Denies headache(s), Denies numbness, Denies tingling and Denies weakness Psych Denies anxiety and Denies depression Endo Denies fatigue Aller/Immun Denies wheezing Physical exam (Primary Care) Vital Signs: Last Vital Signs Temp 97.8 F 11/01/24 09:36 Pulse 85 11/01/24 09:36 Resp 14 11/01/24 09:36 BP 126/62 11/01/24 09:42 Pulse Ox 98 11/01/24 09:36 Oxygen Delivery Method Room Air 11/01/24 09:36 BMI result Body Mass Index 28.9 Tobacco/Smoking Status: Tobacco use Status Tobacco use date assessed 11/01/24 11/01/24 09:42 Patient Tobacco Use Status Former Tobacco user 11/01/24 09:42 Tobacco use type Cigarette 11/01/24 09:42 e-Cigarette/Vaping Use Never Used 11/01/24 09:42 Thrive Assessment: Date of Thrive Assessment Date Thrive assessed 07/25/24 11/01/24 09:42 Currently or been in a relationship where the following occur: I choose not to answer Const General: well developed; No acute distress Nutritional Appearance: well nourished Orientation/consciousness: patient oriented x3 [facility] Head: Yes normocephalic and Yes atraumatic Eyes General: appearance normal, both eyes and all related structures Pupils: Equal, round and reactive pupils present EOM: EOMs intact bilaterally Resp Effort & Inspection: normal respiratory effort Neuro General: patient oriented x3 and gait normal Cranial nerves: Yes Equal, round and reactive pupils present Psych Affect: normal affect Coding Level of Care Code Est Pt Level 4 (08408) Diagnoses Fibromyalgia M79.7 Polyarthralgia M25.50 Hyperlipidemia E78.5 Hypertension I10 Assessment & Plan Assessment & Plan (1) Fibromyalgia: Code(s): M79.7 - Fibromyalgia Category: Medical (2) Polyarthralgia: Code(s): M25.50 - Pain in unspecified joint Category: Medical (3) Hyperlipidemia: Code(s): E78.5 - Hyperlipidemia, unspecified Category: Medical (4) Hypertension: Code(s): I10 - Essential (primary) hypertension Category: Medical Plan Fibromyalgia Stable?on?duloxetine Encouraged?regular?exercise?as?tolerated Blood?pressure?is?a?little?elevated?but?improves?with?relaxation. Refilled?lisinopril Had?advised?patient?to?take?atorvastatin?40?mg?tablet, alternating?1/2?tablet?and?1?tablet?every?other?day. She?is?tolerating?this She?will?get?her?lipids?redrawn?and?we?can?follow-up?on?this?at?her?next?visit. Medications: New nitrofurantoin monohyd/m-cryst 100 mg (Macrobid) must administer with a meal/food 100 mg PO BID 7 days 14 caps 0RF Refilled lisinopril 5 mg (1/2 x 10 mg) PO DAILY 90 days 45 tabs 2RF
[2024-11-01 09:36] VITALS: BP 140/70; PULSE 85; RESP 14; TEMP 36.6; O2SAT 98; BMI 28.9
[2024-11-01 09:42] VITALS: BP 126/62
== END 2024-11-01 10:00 | disposition home or self-care (01) ==
LOC: HO.HMCFM 09:11
PROVIDERS: PCP Family Medicine; Visit Provider Family Medicine
DX: M79.7 Fibromyalgia (principal); M25.50 Pain in unspecified joint; E78.5 Hyperlipidemia, unspecified; I10 Essential (primary) hypertension

== ENCOUNTER → 2024-11-01 09:10 | Outpatient (BNVA) | payer OTHER, SELFPAY | PROVIDERS: PCP Family Medicine; Visit Provider Family Medicine | DX: M79.7 Fibromyalgia (principal); E78.5 Hyperlipidemia, unspecified; I10 Essential (primary) hypertension; M25.50 Pain in unspecified joint | CPT/HCPCS: 99212 ==

== ENCOUNTER 2025-02-07 08:33 | Outpatient (AMB) | payer OTHER, SELFPAY ==
--- NOTE | 2025-02-07 08:43 | A.OFFPC_ITS ---
Vital Signs 02/07/25 08:49 Height 5 ft Weight 142 lb 4 oz BMI 27.8 BP 138/82 Blood Pressure Location Rt brachial Position Sitting Respiration 14 Pulse 94 Pulse Source Pulse Oximeter Temp 97.9 F Temp Source Temporal Artery Scan Pulse Oximetry (%) 94 Oxygen Delivery Method Room Air Intake Visit Reasons: f/u HTN, chronic conditions Intake Note: Phylicia presents in the office today for multiple chronic conditions. Allergies adhesive tape Allergy (Severe, Verified 02/07/25 08:46) grijalva skin celecoxib (From CELEBREX) Allergy (Unknown, Verified 02/07/25 08:46) GASTRITIS ibuprofen (IBUPROFEN) Allergy (Unknown, Verified 02/07/25 08:46) GASTRITIS lactose (LACTOSE) Allergy (Unknown, Verified 02/07/25 08:46) STOMACH UPSET latex (LATEX) Allergy (Unknown, Verified 02/07/25 08:46) RASH metaxalone (From SKELAXIN) Allergy (Unknown, Verified 02/07/25 08:46) GASTRITIS NSAIDS (Non-Steroidal Anti-Inflamma (NSAIDS) Allergy (Unknown, Verified 02/07/25 08:46) GASTRITIS rofecoxib (From VIOXX) Allergy (Unknown, Verified 02/07/25 08:46) GASTRITIS Medication List - Last Reconciled 02/07/25 by Kian Schultz MD atorvastatin 40 mg PO BEDTIME 90 days blood pressure monitor As directed calcium carb,lactat-vitamin D3 . choline bitartrate ER mg PO cyclobenzaprine 10 mg PO BEDTIME diclofenac sodium 1% 4 grams topical QID 30 days docusate sodium (Colace) 100 mg PO DAILY duloxetine (Cymbalta) 60 mg PO BID 90 days hydroxyzine HCl 50 mg PO BEDTIME [lactose enzyme .] lisinopril 5 mg (1/2 x 10 mg) PO DAILY 90 days loratadine (Allergy Relief (loratadine)) 10 mg PO DAILY [lubri syn/ hyaluronic acid .] miscellaneous medical supply (Blood Pressure Cuff) As directed trazodone 100 mg (2 x 50 mg) PO BEDTIME 30 days Tobacco use date assessed: 02/07/25 Dental Screening Dental Screen Date: 02/07/25 Did you have a dental visit in the last 12 months?: No Did you have a dental problem in the last 6 months where you did not have access to dental care?: No Was dental information given to patient?: Yes HPI f/u HTN, chronic conditions HPI Details 59 y/o female presents to f/u hypertensi on, lipids, chronic conditions. No recent lipid panel to review. BP today 138/82, 94p. She is on lisinopril 5mg daily. Reports ongoing urinary symptoms. Had been feeling pain/pressure when urinating. Reports hip pain. Reports L elbow pain and notes pain on L shoulder at times. HPI Comments History of Present Illness Details Documentation assistance for Kian Schultz MD, was provided by Salvatore Payton,? Product Development Chemist on 02/07/2025 at 9:26 AM EST. I, Dr. Schultz, have read, observed, and verified documentation. [facility] Medical History (Reviewed 01/10/24 @ 16:03 by Lauren Manzanares [facility]) Small bowel obstruction Cervical disc disease Sciatica Migraine Fibromyalgia Insomnia Anxiety Depression Surgical History History of laparotomy (11/03/23) History of colonoscopy Family History Other Mental health disorder Social History (Updated 02/07/25 @ 08:49 by Stephanie Garcia MA) Household Members: None Housing: Apartment Do you presently have visiting nurse or other home services: No Alcohol intake: never Comment: rings appropriately Patient Tobacco Use Status: Former Tobacco user Tobacco use type: Cigarette Cigarette Packs Per Day: 1 Years Smoked: 35 e-Cigarette/Vaping Use: Never Used Second Hand Smoke Exposure: No Substance Use Type: Marijuana service: No Current occupational status: disabled Cognitive needs: No Hearing needs: No Vision needs: No Questionnaire Thrive Questionnaire Date Thrive assessed: 07/25/24 I am a: Patient What is your living situation today?: I have a steady place to live Within the past 12 months, did the food you bought not last and you didn't have the money to get more?: Sometimes True Within the past 12 months, did you worry whether your food would run out before you got money to buy more?: Never true Do you have trouble paying for medicines?: No Do you have trouble getting transportation to medical appointments?: No Do you have trouble paying your heating and electricity bill?: No Do you have trouble taking care of your child, family member or friend?: No Do you have trouble with day-to-day activities such as bathing, preparing meals, shopping, managing finances, etc.?: No Are you currently unemployed and looking for a job?: No Are you interested in more education?: No Please select the resources that you would like help with: None Currently or been in a relationship where the following occur: I choose not to answer THRIVE Score: 1 WILBER-7 AMB Questionnaire WILBER-7 Date WILBER - 7 assessed: 06/30/23 Source: Developed by Drs. Wilfredo Yeung, Mallory Cornelius, Markos Calderon and colleagues, with an educational wolf from [employer]. Review of Systems Const Denies chills, Denies fatigue, Denies fever(s), Denies headache(s) and Denies weakness ENT Denies dizziness, Denies headache(s) and Reports nasal congestion Card Denies dyspnea Resp Denies cough, Denies dyspnea, Denies wheezing and Denies other (shortness of breath) Musc Denies numbness and Denies tingling Neuro Denies dizziness, Denies headache(s), Denies numbness, Denies tingling and Denies weakness Psych Denies anxiety and Denies depression Endo Denies fatigue Aller/Immun Denies wheezing Physical exam (Primary Care) Vital Signs: Last Vital Signs Temp 97.9 F 02/07/25 08:49 Pulse 94 02/07/25 08:49 Resp 14 02/07/25 08:49 BP 138/82 02/07/25 08:49 Pulse Ox 94 02/07/25 08:49 Oxygen Delivery Method Room Air 02/07/25 08:49 BMI result Body Mass Index 27.8 Tobacco/Smoking Status: Tobacco use Status Tobacco use date assessed 02/07/25 02/07/25 08:52 Patient Tobacco Use Status Former Tobacco user 02/07/25 08:49 Tobacco use type Cigarette 02/07/25 08:49 e-Cigarette/Vaping Use Never Used 02/07/25 08:49 Thrive Assessment: Date of Thrive Assessment Date Thrive assessed 07/25/24 02/07/25 08:45 Currently or been in a relationship where the following occur: I choose not to answer Const General: well developed; No acute distress Nutritional Appearance: well nourished Orientation/consciousness: patient oriented x3 [facility] Head: Yes normocephalic and Yes atraumatic Eyes General: appearance normal, both eyes and all related structures Pupils: Equal, round and reactive pupils present EOM: EOMs intact bilaterally Resp Effort & Inspection: normal respiratory effort Neuro General: patient oriented x3 and gait normal Cranial nerves: Yes Equal, round and reactive pupils present Psych Affect: normal affect Coding Level of Care Code Est Pt Level 4 (41106) Diagnoses Hypertension I10 Hyperlipidemia E78.5 Dysuria R30.0 Elbow pain M25.529 Left shoulder pain M25.512 Hip pain M25.559 Nasal congestion R09.81 Assessment & Plan Assessment & Plan (1) Hypertension: Code(s): I10 - Essential (primary) hypertension Category: Medical Plan: Blood pressure is creeping up. She is taking lisinopril 5 mg daily. She will take lisinopril 10 mg daily (2) Hyperlipidemia: Code(s): E78.5 - Hyperlipidemia, unspecified Category: Medical Plan: Tolerating atorvastatin Recheck lipids with next blood draw (3) Dysuria: Code(s): R30.0 - Dysuria Category: Medical Plan: Sending urine for urinalysis & culture (4) Elbow pain: Code(s): M25.529 - Pain in unspecified elbow Category: Medical Plan: Left elbow epicondylitis and bilateral forearm and hand pain Referred to occupational therapy (5) Left shoulder pain: Code(s): M25.512 - Pain in left shoulder Category: Medical Plan: Left shoulder and bilateral hip pain Continue duloxetine and topical diclofenac Start physical therapy Ice/heat (6) Hip pain: Code(s): M25.559 - Pain in unspecified hip Category: Medical Plan: As above (7) Nasal congestion: Code(s): R09.81 - Nasal congestion Category: Medical Plan: Advised nasal saline OTC Orders: Orders Urine Culture Today N39.0 - Urinary tract infection, site not specified Comprehensive [place]. Panel Fast Today Z00.00 - Encounter for general adult medical examination without abnormal findings OT Evaluation and Treatment Today M25.529 - Pain in unspecified elbow, M79.643 - Pain in unspecified hand Erythrocyte Sedimentation Rate Today M25.50 - Pain in unspecified joint CHUCK Reflex Titer and Pattern Today M25.50 - Pain in unspecified joint UA and rflx microscopic Today N39.0 - Urinary tract infection, site not specified Lipid Panel Today Z00.00 - Encounter for general adult medical examination without abnormal findings PT Evaluation and Treatment Today M25.512 - Pain in left shoulder, M25.559 - Pain in unspecified hip CRP High Sensitivity Today M25.50 - Pain in unspecified joint Rheumatoid Factor Today M25.50 - Pain in unspecified joint Medications: New simethicone 80 mg PO BID-QID PRN 120 tabs 2RF abdominal distention 30 days Changed From lisinopril 5 mg (1/2 x 10 mg) PO DAILY 90 days 45 tabs 2RF To lisinopril 10 mg PO DAILY 90 tabs 2RF 90 days
[2025-02-07 08:49] VITALS: BP 138/82; PULSE 94; RESP 14; TEMP 36.6; O2SAT 94; BMI 27.8
== END 2025-02-07 09:33 | disposition home or self-care (01) ==
LOC: HO.HMCFM 08:40
PROVIDERS: PCP Family Medicine; Visit Provider Family Medicine
DX: I10 Essential (primary) hypertension (principal); E78.5 Hyperlipidemia, unspecified; R30.0 Dysuria; M25.529 Pain in unspecified elbow; M25.512 Pain in left shoulder; M25.559 Pain in unspecified hip; R09.81 Nasal congestion

== ENCOUNTER 2025-02-07 08:33 | Outpatient (REF) | payer OTHER, SELFPAY ==
[2025-02-07 12:08] LABS: Appearance Urine Clear; Glucose Urine UA Negative (Negative); PH 6.5 (5.0-9.0); Specific Gravity - Urine <= 1.005 (1.005-1.025); UMIC TRIGGER UA YES
== END 2025-02-07 08:34 | disposition home or self-care (01) ==
LOC: HO.LAB 08:33
PROVIDERS: PCP Family Medicine; Visit Provider Family Medicine
DX: I10 Essential (primary) hypertension (principal); N39.0 Urinary tract infection, site not specified; E78.5 Hyperlipidemia, unspecified; R30.0 Dysuria; M25.512 Pain in left shoulder; R09.81 Nasal congestion
CPT/HCPCS: 81001; 87086; 99212